=== PATIENT | female | born 1960 | race Two or more races ===

== ENCOUNTER → 2024-05-12 | Outpatient (CLI) | payer OTHER, SELFPAY | END | disposition home or self-care (01) | LOC: SWHD 13:26 | PROVIDERS: PCP Family Medicine; Referring Provider Family Medicine; Visit Provider Student in an Organized Health Care Education/Training Program | DX: L89.892 Pressure ulcer of other site, stage 2 (principal); Z89.512 Acquired absence of left leg below knee; Z89.511 Acquired absence of right leg below knee; E11.622 Type 2 diabetes mellitus with other skin ulcer; N18.6 End stage renal disease; I12.0 Hypertensive chronic kidney disease with stage 5 chronic kidney disease or end stage renal disease; E11.22 Type 2 diabetes mellitus with diabetic chronic kidney disease; Z99.2 Dependence on renal dialysis | CPT/HCPCS: 99213; G0463 ==

== ENCOUNTER → 2024-05-17 | Outpatient (CLI) | payer OTHER, SELFPAY | END | disposition home or self-care (01) | LOC: SWHD 10:45 | PROVIDERS: PCP Family Medicine; Referring Provider Family Medicine; Visit Provider Student in an Organized Health Care Education/Training Program | DX: L97.822 Non-pressure chronic ulcer of other part of left lower leg with fat layer exposed (principal); E11.622 Type 2 diabetes mellitus with other skin ulcer; N18.6 End stage renal disease; I12.0 Hypertensive chronic kidney disease with stage 5 chronic kidney disease or end stage renal disease; E11.22 Type 2 diabetes mellitus with diabetic chronic kidney disease; Z99.2 Dependence on renal dialysis; Z89.511 Acquired absence of right leg below knee; Z89.512 Acquired absence of left leg below knee | CPT/HCPCS: 97597; A9270 ==

== ENCOUNTER → 2024-06-07 | Outpatient (CLI) | payer OTHER, SELFPAY ==
--- NOTE | 2024-06-07 | XR_ITS ---
Examination: Tibia-Fibula, left , 2 views Technique: Tibia-fibula AP lateral 2 views Date and time of exam: June 07, 2024 1150 hours INDICATIONS: Open nonhealing wound at the amputation stump left lower leg 2 months FINDINGS: Severe osteopenia No fracture No cynthia cortical bone destruction IMPRESSION: No cynthia cortical bone destruction Consider MRI lower leg follow-up to best assess for early osteomyelitis, soft tissue abscess
[2024-06-07 13:21] LABS: Glucose Estimated Average 82 mg/dL (80-131); Hemoglobin A1C 4.5 % Hgb (4.8-6.0)
== END | disposition home or self-care (01) ==
PROVIDERS: PCP Family Medicine; Referring Provider Family Medicine; Visit Provider Student in an Organized Health Care Education/Training Program
DX: S81.802A Unspecified open wound, left lower leg, initial encounter (principal); X58.XXXA Exposure to other specified factors, initial encounter
CPT/HCPCS: 36415; 73590; 83036

== ENCOUNTER → 2024-06-09 | Outpatient (CLI) | payer OTHER, SELFPAY | END | disposition home or self-care (01) | LOC: SWHD 10:13 | PROVIDERS: PCP Family Medicine; Referring Provider Family Medicine; Visit Provider Student in an Organized Health Care Education/Training Program | DX: E11.622 Type 2 diabetes mellitus with other skin ulcer (principal); L97.822 Non-pressure chronic ulcer of other part of left lower leg with fat layer exposed; N18.6 End stage renal disease; I12.0 Hypertensive chronic kidney disease with stage 5 chronic kidney disease or end stage renal disease; E11.22 Type 2 diabetes mellitus with diabetic chronic kidney disease; Z99.2 Dependence on renal dialysis; Z89.511 Acquired absence of right leg below knee; Z89.512 Acquired absence of left leg below knee | CPT/HCPCS: 97597; A9270 ==

== ENCOUNTER → 2024-06-30 | Outpatient (CLI) | payer MEDICARE, SELFPAY | END | disposition home or self-care (01) | LOC: SWHD 09:35 | PROVIDERS: PCP Family Medicine; Referring Provider Family Medicine; Visit Provider Surgery | DX: E11.622 Type 2 diabetes mellitus with other skin ulcer (principal); L97.822 Non-pressure chronic ulcer of other part of left lower leg with fat layer exposed; N18.6 End stage renal disease; I12.0 Hypertensive chronic kidney disease with stage 5 chronic kidney disease or end stage renal disease; E11.22 Type 2 diabetes mellitus with diabetic chronic kidney disease; Z99.2 Dependence on renal dialysis; Z89.511 Acquired absence of right leg below knee; Z89.512 Acquired absence of left leg below knee | CPT/HCPCS: 99213; A9270; G0463 ==

== ENCOUNTER → 2024-07-07 | Outpatient (CLI) | payer MEDICARE, SELFPAY | END | disposition home or self-care (01) | LOC: SWHD 08:49 | PROVIDERS: PCP Family Medicine; Referring Provider Family Medicine; Visit Provider Student in an Organized Health Care Education/Training Program | DX: E11.622 Type 2 diabetes mellitus with other skin ulcer (principal); L97.822 Non-pressure chronic ulcer of other part of left lower leg with fat layer exposed; N18.6 End stage renal disease; I12.0 Hypertensive chronic kidney disease with stage 5 chronic kidney disease or end stage renal disease; E11.22 Type 2 diabetes mellitus with diabetic chronic kidney disease; Z99.2 Dependence on renal dialysis; Z89.511 Acquired absence of right leg below knee; Z89.512 Acquired absence of left leg below knee | CPT/HCPCS: 11042; A9270 ==

== ENCOUNTER 2024-07-19 04:12 | Inpatient (IN) | payer MEDICARE, MEDICAID, SELFPAY ==
[2024-07-19] VITALS (8 sets, daily range): BP systolic 142–172; BP diastolic 37–73; PULSE 33–48; RESP 12–90; TEMP 36.1–36.9; O2SAT 95–100; BMI 37.2
--- NOTE | 2024-07-19 | XR_ITS ---
Examination: CT brain head without contrast. 2-D sagittal coronal reconstructions Date and time of exam:July 19, 2024 0424 hours INDICATIONS: Stroke alert, onset focal neurologic deficit, right-sided body weakness beginning 1 ago CTDI: vol (mGy):51.33 DLP: (mGycm):1134 Technique: Multiple CT axial sections of the brain have been obtained, 5 mm slice thickness. Contrast has not been administered. 2-D sagittal, coronal reconstructions have been obtained Low dose protocols were performed. One or more of the following dose reduction techniques were used; automated exposure control, adjustment of the mA and/or KV according to patient size, use of iterative reconstruction technique. Findings: No significant ventricular enlargement. Intra-axial or extra-axial hemorrhage density is not seen. No mass effect or midline shift Basal cisterns are not remarkable. Fourth ventricle is midline. Cranial vault intact. Impression: Negative for acute hemorrhage, mass effect or midline shift
--- NOTE | 2024-07-19 | XR_ITS ---
Examinations: MRI Brain without intravenous contrast. MRA brain without intravenous contrast. MRA carotids without intravenous contrast 3-D vascular reconstructions Date and time of exam: July 19, 2024 1047 hours INDICATIONS: Stroke alert this morning, onset focal neurologic deficit, right facial droop Technique: Multiple axial and sagittal images of the brain have been obtained MRA brain carotid images without contrast obtained, including 3-D postprocessing, vascular maximum intensity projection images Findings: Sellaturcica is not enlarged. The optic chiasm and infundibular stalk are not remarkable. Prepontine and interpeduncular cisterns are not enlarged. No localized enlargement of the medulla or jose. Fourth ventricle and cerebellar tonsils normal in position. Subacute hemorrhage is not seen. Fourth ventricle is midline. Mass in the cerebellopontine angle region is not evident. 7th and 8th nerve complexes exhibits symmetry. Globes are symmetrical with no retro-orbital mass. Increased white matter signal prominent Diffusion-weighted images demonstrate 12 mm focus restricted diffusion left brainstem, pontine level Mass-effect upon the ventricular system is not identified. MRA carotid images degraded by patient motion. MRA brain images moderate diffuse cerebral arterial irregularity Impression: 12 mm acute left brainstem infarcts, pontine level
--- NOTE | 2024-07-19 | XR_ITS ---
Examination: CTA carotids with intravenous contrast CTA brain, head with intravenous contrast. 2-D sagittal, coronal reconstructions. 3-D reconstructions. Exam date and time: July 19, 2024 0430 hours INDICATIONS: Stroke alert, onset right-sided body weakness today, onset focal neurologic deficit CTDI: vol (mGy) 68.79 DLP: (mGycm) 544 Technique: Multiple CTA axial brain, head carotid images post intravenous contrast injection 75 cc, [id number]. 2-D sagittal, coronal reconstructions. 3-D reconstructions, 3-D post processing including vascular maximum intensity projection images. Low dose protocols were performed. One or more of the following dose reduction techniques were used; automated exposure control, adjustment of the mA and/or KV according to patient size, use of iterative reconstruction technique. Findings: Enlargement main pulmonary artery segment Moderate calcification at the carotid bifurcations Atretic right vertebral artery in the neck with multiple areas of poor filling 70% plus stenosis of the petrous portions of both internal carotid arteries 80% plus stenosis juxtasellar portions both internal carotid arteries with very heavy calcification Middle cerebral posterior cerebral branches do fill The intracranial distal right vertebral artery appears occluded IMPRESSION: Very atretic right vertebral artery in the neck with multiple areas of poor filling 70% plus stenosis petrous portions both internal carotid arteries 80% plus stenosis both juxtasellar internal carotid artery segments Intracranial right vertebral artery distally is occluded Posterior cerebral middle cerebral anterior cerebral branches fill with no large vessel occlusions
[2024-07-19] MEDS: Aspirin 325 MG TABLET PO (05:45)
[2024-07-19] MEDS: CLOPIDOGREL BISULFATE 75 MG TABLET 300 MG PO (05:45)
--- NOTE | 2024-07-19 07:38 | EVENTNT_ITS ---
Documentation for date of: 07/19/24 Event Note Event Note: 64-year-old female patient with hypertension, diabetes mellitus, end-stage renal disease on hemodialysis, was seen for body malaise, weakness, dizziness. Patient was noted to have bradycardia in the 30s. She is awake and oriented. We were able to call her relative to give her list of medications: Amlodipine 10 mg daily, furosemide 80 mg daily, gabapentin 100 mg 3 times daily, aspirin 81 mg daily. Blood pressure stable. She is alert she also has slurring of speech and weakness numbness of the right upper extremity. Teleneuro evaluation done. CT brain and CT angio head and neck done. Possible posterior vertebral artery narrowing on preliminary report. Cardiology evaluation requested. Driver/Merchandiser will be contacted. ICU evaluation requested. Patient seen and evaluated with Dr. Schroeder.
[2024-07-19 08:20] LABS: Alanine Aminotransferase 12 U/L (10-49); Albumin, Serum 4.1 gm/dL (3.4-4.8); Albumin/Globulin Ratio 1.4 (1.2-2.2); Alkaline Phosphatase 113 U/L (46-116); Anion Gap 11 (7-16); Aspartate Amino Transferase 19 U/L (0-34); B-Type Natriuretic Peptide 1038 pg/mL (0-100); BUN/Creatinine Ratio 8 Ratio (12-20); Bilirubin,Total 0.2 mg/dL (0.3-1.2); Blood Urea Nitrogen 38 mg/dL (9-23); Calcium 8.6 mg/dL (8.3-10.6); Calcium (Corrected) 8.6 mg/dL (8.5-10.1); Carbon Dioxide 30.5 mMol/L (20.0-31.0); Chloride 95 mMol/L (98-107); Creatinine (Component) 4.6 mg/dL (0.6-1.3); Estimated Creatinine Clearance 9.7 mL/min (>60); Globulin 2.9 gm/dL (2.3-3.5); Glucose 115 mg/dL (74-106); Magnesium 2.1 mg/dL (1.6-2.6); Osmolality,Calculated 281 (275-295); Potassium 4.8 mMol/L (3.4-5.1); Sodium 136 mMol/L (136-145); Thyroid Stimulating Hormone 2.18 uIU/mL (0.55-4.78); Troponin I 0.023 ng/mL (0.0-0.045); eGFR 10 See Note
[2024-07-19 08:22] LABS: Basophils % (Auto) 0 % (0-2.5); Eosinophils # (Auto) 0.3 Thou/mm3 (0.0-0.5); Eosinophils % (Auto) 3 % (0-10); Hematocrit 31.8 % (36.0-46.0); Hemoglobin 9.8 g/dL (12.0-16.0); INR 1.1 (0.9-1.3); Immature Granulocytes % (Auto) 0 % (0-0); Immature Granulocytes Auto 0.03 Thou/mm3 (0.00-0.00); Lymphocytes % (Auto) 10 % (10-50); Mean Corpuscular HGB Conc 30.8 g/dl (31.0-37.0); Mean Corpuscular Hemoglobin 31.8 pg (25.0-35.0); Mean Corpuscular Volume 103 fL (80-100); Monocytes # (Auto) 0.9 Thou/mm3 (0.0-0.8); Monocytes % (Auto) 10 % (0-12); Neutrophils % (Auto) 76 % (37-80); Nucleated Red Blood Cell # 0.03 Thou/mm3 (0.00-0.00); Nucleated Red Blood Cell % 0 /100 WBC (0); Partial Thromboplastin Time 28.4 Seconds (22.0-36.0); Platelet Count 181 Thou/mm3 (140-440); Prothrombin Time 11.8 Seconds (9.0-12.2); RDW Standard Deviation 74.8 fL (36.4-46.3); Red Blood Count 3.08 Miln/mm3 (4.00-5.20); White Blood Count 9.2 Thou/mm3 (3.6-11.0)
[2024-07-19 08:49] LABS: T4 (Thyroxine) 7.4 mcg/dL (4.5-10.9)
--- NOTE | 2024-07-19 10:11 | ECHO_ITS ---
Transthoracic Echo Report Ht (in): 54 Wt (lb): 154 Exam Location: Echo Lab Status: Emergency Business Services Officer: Gia Love Indications: Procedure Performed: BP: 172 / 47 HR: Technical Quality: Very technically difficult study MEASUREMENTS (Male / Female) Normal Values 2D ECHO LV Diastolic Diameter PLAX 4.7 cm 4.2 - 5.9 / 3.9 - 5.3 cm LV Systolic Diameter PLAX 3.4 cm IVS Diastolic Thickness 1.0 cm 0.6 - 1.0 / 0.6 - 0.9 cm LVPW Diastolic Thickness 1.0 cm 0.6 - 1.0 / 0.6 - 0.9 cm LV Relative Wall Thickness 0.4 LA Volume Index 38.2 cm?/m? 16 - 28 cm?/m? M-MODE AV Cusp Separation MM 1.3 cm DOPPLER AV Peak Velocity 224.0 cm/s AV Peak Gradient 20.1 mmHg AV Mean Gradient 11.0 mmHg AV Velocity Time Integral 65.1 cm LVOT Peak Velocity 99.1 cm/s LVOT Peak Gradient 3.9 mmHg LVOT Velocity Time Integral 28.1 cm MV Peak Velocity 298.0 cm/s MV Peak Gradient 35.5 mmHg MV Mean Velocity 171.0 cm/s MV Mean Gradient 15.0 mmHg MV Area PHT 2.3 cm? MR Peak Velocity 464.0 cm/s MR Peak Gradient 86.1 mmHg Mitral E Point Velocity 34.0 cm/s Mitral A Point Velocity 123.0 cm/s Mitral E to A Ratio 0.3 LV E' Lateral Velocity 7.9 cm/s Mitral E to LV E' Lateral Ratio 4.3 LV E' Septal Velocity 3.8 cm/s Mitral E to LV E' Septal Ratio 8.9 TR Peak Velocity 376.0 cm/s TR Peak Gradient 56.6 mmHg FINDINGS Left Ventricle Normal left ventricular size, wall thickness, systolic function with no obvious regional wall motion abnormalities. Normal left ventricular diastolic filling pattern for age. The ejection fraction is visually estimated at 55-60 %. Right Ventricle The right ventricle is normal in size and systolic function. The estimated right ventricular systolic pressure, 72 mmHg. RAP 15. Left Atrium The left atrial cavity size is mildly increased. Right Atrium The right atrial cavity size is mildly increased. Atrial Septum The interatrial septum appears normal with no evidence of a shunt. Aorta The aorta is normal by two-dimensional, color flow and Doppler interrogation. Mitral Valve Normal left ventricular size, wall thickness, systolic function with no obvious regional wall motion abnormalities. Normal left ventricular diastolic filling pattern for age. The ejection fraction is visually estimated at 55-60 %. Aortic Valve Moderate AV sclerosis with mild aortic stenosis with mean PG 11mmHg. Mild AI. Tricuspid Valve The tricuspid valve is normal by two-dimensional, color flow and Doppler interrogation. There is mild tricuspid valve regurgitation. Pulmonic Valve The pulmonic valve is not well visualized. There is no significant pulmonic valve regurgitation. Vessels Dilated inferior vena cava. Pericardium The pericardium is normal by two-dimensional imaging. There is no significant pericardial effusion. CONCLUSIONS Indication: Stroke and complete heart block Negative bubble study with no clear evidence of any PFO Normal LV size and function. Estimated EF 55-60 %. Mild LVH. Diastolic dysfunction present but cannot be graded deu to severe MAC Normal RV size and function. Estimated RVSP, 72 mmHg. RAP 15. Atleast moderate to severe PAH. Severely calcified and thickened mitral leaflets with severe MAC. Severe mitral stenosis with a mean PG of 15 mm hg. Moderate biatrial dilation. Mild aortic stenosis with moderate clacification. mean PG 11 mm hg. Mild to moderate MR. Mild TR. Dilated IVC. Josh Patricio (Electronically Signed) Final Date: 21 July 2024 08:06
--- NOTE | 2024-07-19 10:30 | ESCONSULT_ITS ---
<Statement entered by Zeina Carrillo DO - 07/19/24 15:20> Senior attestation: Patient was examined and case was reviewed with team including attending physician. Note reviewed, I agree with most of its contents and agree with the patient's care. HPI Data of Consult Requesting Physician: Fauzia Thomason DO Admitting Provider: Fauzia Thomason DO Attending Provider: Fauzia Thomason DO Primary Care Provider: Naty Torres MD Consult Narrative Reason for consult: 3rd degree heart block History of present illness: Brigitte Amaya is 64 yr female with PMH of b/L bka, HTN, ESRD (M/W/F with Sergei) who presented to ED after slurred speech and right sided motor deficits. Patient lives at home with family who assists with her care. Family had noticed change in speech last night. Patient also had a choking episode when drinking water. There was a change in baseline motor strength. Typically she is able to move wheelchair herself but had significant difficulty since last night. Not able to occupational health and safety adviser with right hand and no movement in right leg. Sensation in all 4 extremities and face is intact. Further evaluation in ED showed bradycardia with HR in 30s and EKG showing 3rd degree block, narrow QRS complexes. Patient states that she has been aware of her lashawn since past few weeks. Last Thursday, the dialysis nurse recommended to stop home metoprolol (dose?) and follow up with biodiesel plant superintendent. She has never had work up done in the past. Cardiology and ICU were consulted for possible transcutaneous pacing. She denies any SOB, fainting, or dizzniess but endorses fatigue since last week. As patient remains hemodynamically stable, AOx3 ICU teams recommends to transfer to [facility]. Continue to monitor and observe with workup and treatment of stroke. cc:: cc: Fauzia Thomason DO Review of Systems Constitutional Constitutional: Reports system reviewed and no additional complaints, except as documented Exam Vital Signs Temp Pulse Resp BP Pulse Ox O2 Del Method O2 Flow Rate 98.1 F 36 L 17 155/37 H 100 Room Air 2 07/19/24 12:12 07/19/24 12:12 07/19/24 12:12 07/19/24 12:12 07/19/24 12:12 07/19/24 12:12 07/19/24 10:50 Narrative Exam General: Alert and oriented x3. No acute distress, cooperative HEENT: Atraumatic, normocephalic. No JVD noted. Mucosa moist. Pupils are equal and reactive to light bilaterally Cardiovascular: Normal S1 and S2. Bradycardic Respiratory: Lungs are clear to auscultation bilaterally. No wheezing or crackles heard. Abdomen: Soft, nontender, not distended, normal bowel sounds. Skin: Warm to touch, grade I/II sacral wound Musculoskeletal: b/L BKA Neuro: Alert and oriented x3. Sensation intact, no movement in RUE/RLE, right lower side facial dropping, slurred speech but still audible Psych: Normal affect and mood Results Labs 07/19/24 04:55 07/19/24 04:55 Labs: Short CBC 07/19/24 Range/Units 04:55 WBC 9.2 (3.6-11.0) Thou/mm3 Hgb 9.8 L (12.0-16.0) g/dL Hct 31.8 L (36.0-46.0) % Plt Count 181 (140-440) Thou/mm3 BMP 07/19/24 04:55 Sodium 136 Potassium 4.8 Chloride 95 L Carbon Dioxide 30.5 BUN 38 H Creatinine 4.6 H* Glucose 115 H Calcium 8.6 Cardiac Enzymes 07/19/24 Range/Units 04:55 Troponin I 0.023 (0.0-0.045) ng/mL Liver Function 07/19/24 Range/Units 04:55 Total Bilirubin 0.2 L (0.3-1.2) mg/dL AST 19 (0-34) U/L ALT 12 (10-49) U/L Alkaline Phosphatase 113 (46-116) U/L Albumin 4.1 (3.4-4.8) gm/dL Quality Measures Quality Measures VTE prophylaxis Advance care planning discussed with:: patient Medications Home Medications and Allergies Home Medications ?Medication ?Instructions ?Recorded ?Confirmed ?Type aspirin 81 mg chewable tablet 81 mg PO HS ##0 11/30/16 04/14/23 History gabapentin 300 mg capsule 100 mg PO TID #0 caps 04/14/23 History furosemide 40 mg tablet (Lasix) 80 mg PO MWF #0 tabs 0 12/02/16 04/14/23 History Held on 04/16/23. Instructions: Resume on 06/22/23. 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/plumber helper amlodipine 10 mg tablet 10 mg PO DAILY 04/14/2303/23 History cholecalciferol (vitamin D3) 100 1,000 mcg PO DAILY 04/14/23 History mcg (4,000 unit) capsule loratadine 10 mg tablet 10 mg PO DAILY 04/14/2303/23 History metoprolol tartrate 25 mg tablet 25 mg PO BID 04/14/23 04/14/23 History sevelamer carbonate 800 mg tablet 800 mg PO TIDWM 03/2304/14/23 History vitamin B complex 1 tab PO QDAY 04/14/2304/14 History Allergies Allergy/AdvReac Type Severity Reaction Status Date / Time No Known Allergies Allergy Unverified 04/14/23 07:26 Visit Medications Aspirin (Aspirin Ec 81 Mg Tabec) 81 mg PO QDAY KAYLIN Stop: 08/19/24 08:59 Atorvastatin Calcium (Atorvastatin Calcium 10 Mg Tablet) 80 mg PO HS KAYLIN Stop: 08/18/24 20:59 Clopidogrel Bisulfate (Clopidogrel Bisulfate 75 Mg Tablet) 75 mg PO QDAY KAYLIN Stop: 08/19/24 08:59 Heparin Sodium (Porcine) (Heparin Sod Inj 5000 Unit/Ml Vial) 5,000 unit SC Q8HR KAYLIN Stop: 08/02/24 13:59 Hydralazine HCl (Hydralazine Inj 20 Mg/Ml Vial) 10 mg IVP X1 PRN PRN Reason: SBP > 220 Stop: 08/18/24 09:17 Discontinued Medications Aspirin (Aspirin 325 Mg Tablet) 325 mg PO X1 ONE Stop: 07/19/24 05:46 Last Admin: 07/19/24 05:45 Dose: 325 mg Clopidogrel Bisulfate (Clopidogrel Bisulfate 75 Mg Tablet) 300 mg PO X1 ONE Stop: 07/19/24 05:46 Last Admin: 07/19/24 05:45 Dose: 300 mg Assessment & Plan Plan Brigitte Amaya is 64 yr female with PMH of b/L bka, HTN, ESRD (M/W/F with Sergei) who presented to ED after slurred speech and right sided motor deficits. Patient lives at home with family who assists with her care. Family had noticed change in speech last night. Further evaluation in ED showed bradycardia with HR in 30s and EKG showing 3rd degree block, narrow QRS complexes. Cardiology and ICU were consulted for possible transcutaneous pacing. As patient remains hemodynamically stable, AOx3 ICU teams recommends to transfer to tele. Continue to monitor and observe with workup and treatment of stroke. Neuro: #CVA Patient has presented with right side motor deficit, right lower face drooping and slurred speech. LWK yesterday night before bed. Stroke aler called and tele neuro was consulted. -continue workup/mgmt of CVA per neuro and PCP CVS: #3rd degree AV node block Underlying causes: metoprolol use, CVA, dialysis EKG showed lashawn HR 30s with narrow QRS complexes, patient is stable, MAP 100s. -consulted cardiology -defer transcut pacing. Monitor and observe with treatment of stroke Pulm: no active problems Renal: #ESRD on dialysis MWF with Dr. Hodgson, last session was on Thursday -resume dialysis GI: Endo: Heme/Onc: ID: no active problems Skin: -wound care for sacral ulcer The patient's management plan was discussed with my attending physician Dr. Felix and senior Dr. Carrillo. Wanda Arnold, PGY-1 Attending Provider Attestation/Addendum pt seen and examined. Apparently she was in her usual state of health yesterday evening when she went to bed. When she woke up at 3am she found R sided weakness and EMS was called. She does have a h/o ESRD and HTN. States that recently her BP meds have been changed due to issues with her HR at the dialysis center. Denies n/v, fever/chills, chest pain/SOB, or additional sxs then her weakness at this time. she does have slurred speech as well. She arrived to the ER at 4am and was noted to have a HR in the mid 30s to 40s with a SBP ranging from 140s- 180s. At time of exam in the ER she is awake alert oriented and appropriate. Denies dizziness, VOGEL or lightheadedness. On exam she has a R facial droop with R sided weakness, LCTAB, HRRR and b/l BKA. She has pacer pads in place however they are not on and she is not being paced at this time. a/p CVA- HCT and CTA brain neck show some right sided vertebral occlusion and MRI shows small CVA. will need ongoing stroke workup Bradycardia- appears to have a 3rd degree heart block on the monitor, cardiology was consulted in the ER. She is able to maintain her MAP at this point in time without support. She is awake and mentating and therefore appears to have an adequate perfusing pressure. At this point in time , given she is not symptomatic, she does not require dopamine or transcutaneous pacing for her HR. Should her BP drop will reevaluate the need for dopamine and/or pacing. She is on a BB as an outpt. Cardiology has been consulted and will eval need for tranvenous or PPM. At this point in time she appears to be stable. case d/w ICU team d/w ER, cardiology and floor team labs, imaging, records reviewed ~70min required for eval, exam, review, intervention, discussion and formulation of POC for this acutely ill pt
--- NOTE | 2024-07-19 10:40 | PD.RESHP ---
Documentation for date of: 07/19/24 HPI History of Present Illness History of present illness: Ms. Amaya is 64 y/o F with PMH significant for HTN, T2DM, ESRD (HD M,W,F) and bilateral BKA presented to the ED after worsening generalized weakness. Pt stated for the last couple dialysis session she was told at the center her HR is very low and she would need prompt follow up with her PCP. However pt has not been able to make it to the appointment which was scheduled for today. Yesterday (Thursday) after her dialysis session she was at home where she lives with her brother and mother. towards the evening pt has worsening fatigue and was not able to engaged in conversation with her family. per pt her family told her she was slurring her speech and they were not able to understand her. Pt also tried to get up from sitting position and was unable to do so and she started having profound weakness on her right side. denied noticeable facial asymmetry however she states for the past 2 weeks she has been having blurry vision in left eye only. Pt states the last couples she have not made urine. Pt had BKA 8 years ago. denies nausea, vomitting or abdominal pain. Pt denies any diziness, SOB, or chest pain. ED course: intial BP 172/47, HR 35, Hgb 9.8, Hct 31.8, MCV 103, BUN 38, Cr 4.6, eGFR 10, BNP 1038 images: Head/neck CTA :Very atretic right vertebral artery in the neck with multiple areas of poor filling, 70% plus stenosis petrous portions both internal carotid arteries 80% plus stenosis both juxtasellar internal carotid artery segments, Intracranial right vertebral artery distally is occluded, Posterior cerebral middle cerebral anterior cerebral branches fill with no large vessel occlusions -Head CT : Negative for acute hemorrhage, mass effect or midline shift -MRI with MRA brain- 12 mm acute left brainstem infarcts, pontine level Teleneuro was consulted, aspirin 325mg x1 and clopidogrel 300mg x1 given PMH: HTN, T2DM, ESRD (HD M,W, F) PSH: Bilateral BKA Home Meds: amlodipine 10mg Qday, Furosemide 80mg Qday, Gabapentin 100mg TID, Aspirin 81mg) Review of Systems Review of Systems Systems Reviewed: All systems reviewed, normal except as documented Exam Vital Signs Temp Pulse Resp BP Pulse Ox O2 Del Method O2 Flow Rate 97.9 F 39 L 12 160/48 H 97 Nasal Cannula 2 07/19/24 10:17 07/19/24 10:17 07/19/24 10:17 07/19/24 10:17 07/19/24 10:17 07/19/24 10:17 07/19/24 10:17 Narrative Exam GENERAL: A&Ox3 . Awake, Not in acute distress NEURO: no focal neurological deficits HEENT: Atraumatic, Normocephalic. mucous membranes moist. Eyes open, symmetrical, & clear HEART: Normal Heart Sounds LUNGS: Clear to auscultation with no wheezing or crackles. ABDOMEN: soft, non-distended, non-tender, bowel sounds heard, no guarding or rebound tenderness SKIN: No Rash or ecchymoses EXTREMITIES: No edema, tenderness, able to move all 4 extremities, pedal pulses palpated NEURO:? ? MENTAL STATUS:?AOx3 and somnolence ? LANG/SPEECH: Fluent, intact naming, repetition & comprehension ? CRANIAL NERVES: ? II: Pupils equal and reactive, no RAPD,?left hemianopia ? III, IV, : EOM intact, no gaze preference or deviation ? V: normal ? VII: no facial asymmetry ? VIII: slow mumbling hearing to speech ? MOTOR: 0/5 in right upper and lower extremity and 5/5 left upper and lower extremities ? REFLEXES: deminished reflexes in right upper and right lower extremities. intached reflexes in left ? SENSORY: Normal to touch, temperature & pin prick in all extremiteis ? COORD: no tremor, no dysmetria Results: Labs 07/21/24 04:20 07/21/24 04:20 Labs: Short CBC 07/19/24 Range/Units 04:55 WBC 9.2 (3.6-11.0) Thou/mm3 Hgb 9.8 L (12.0-16.0) g/dL Hct 31.8 L (36.0-46.0) % Plt Count 181 (140-440) Thou/mm3 BMP 07/19/24 04:55 Sodium 136 Potassium 4.8 Chloride 95 L Carbon Dioxide 30.5 BUN 38 H Creatinine 4.6 H* Glucose 115 H Calcium 8.6 Cardiac Enzymes 07/19/24 Range/Units 04:55 Troponin I 0.023 (0.0-0.045) ng/mL Liver Function 07/19/24 Range/Units 04:55 Total Bilirubin 0.2 L (0.3-1.2) mg/dL AST 19 (0-34) U/L ALT 12 (10-49) U/L Alkaline Phosphatase 113 (46-116) U/L Albumin 4.1 (3.4-4.8) gm/dL Quality Measures Quality Measures stroke Suspected type of Stroke: Acute Ischemic Tenecteplase given: Reason(s) Tenecteplase not given: Outside the time window not given Rehab services: PT evaluation ordered VTE Prophylaxis: pharmaceutical Antithrombotic by day 2:: ordered Statin ordered: <75 y/o high intensity dose Anticoagulation ordered for A-fib or flutter (current or hx): not indicated Advance care planning discussed with:: patient Medications Home Medications and Allergies Home Medications ?Medication ?Instructions ?Recorded ?Confirmed ?Type aspirin 81 mg chewable tablet 81 mg PO HS ##0 11/30/16 04/14/23 History gabapentin 300 mg capsule 100 mg PO TID #0 caps 11/30/16 04/14/23 History furosemide 40 mg tablet (Lasix) 80 mg PO MWF #0 tabs 12/02/16 04/14/23 History Held on 04/16/23. Instructions: Resume on 06/22/23. 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 manager electronics amlodipine 10 mg tablet 10 mg PO DAILY 04/14/23 04/14/23 History cholecalciferol (vitamin D3) 100 1,000 mcg PO DAILY 04/14/23 04/14/23 History mcg (4,000 unit) capsule loratadine 10 mg tablet 10 mg PO DAILY 04/14/23 04/14/23 History metoprolol tartrate 25 mg tablet 25 mg PO BID 04/14/23 04/14/23 History sevelamer carbonate 800 mg tablet 800 mg PO TIDWM 04/14/23 04/14/23 History vitamin B complex 1 tab PO QDAY 04/14/23 04/14/23 History Allergies Allergy/AdvReac Type Severity Reaction Status Date / Time No Known Allergies Allergy Unverified 04/14/23 07:26 Visit Medications Aspirin (Aspirin Ec 81 Mg Tabec) 81 mg PO QDAY KAYLIN Stop: 08/19/24 08:59 Atorvastatin Calcium (Atorvastatin Calcium 10 Mg Tablet) 80 mg PO HS KAYLIN Stop: 08/18/24 20:59 Clopidogrel Bisulfate (Clopidogrel Bisulfate 75 Mg Tablet) 75 mg PO QDAY KAYLIN Stop: 08/19/24 08:59 Heparin Sodium (Porcine) (Heparin Sod Inj 5000 Unit/Ml Vial) 5,000 unit SC Q8HR KAYLIN Stop: 08/02/24 13:59 Hydralazine HCl (Hydralazine Inj 20 Mg/Ml Vial) 10 mg IVP X1 PRN PRN Reason: SBP > 220 Stop: 08/18/24 09:17 Discontinued Medications Aspirin (Aspirin 325 Mg Tablet) 325 mg PO X1 ONE Stop: 07/19/24 05:46 Last Admin: 07/19/24 05:45 Dose: 325 mg Clopidogrel Bisulfate (Clopidogrel Bisulfate 75 Mg Tablet) 300 mg PO X1 ONE Stop: 07/19/24 05:46 Last Admin: 07/19/24 05:45 Dose: 300 mg Assessment & Plan Plan Ms. Amaya is 64 y/o F with PMH significant for HTN, T2DM, ESRD (HD M,W,F) and bilateral BKA presented to the ED after worsening generalized weakness. Pt is admitted to telemetry for stroke up and cardio recommendations for bradycardia. #Acute CVA #residual right sided weakness -LKW: last night (07/18) 1800 -NIHSS = 9 for R HP, OS eye -Tele neuro consulted, recommendations appreciated -Head/neck CTA :Very atretic right vertebral artery in the neck with multiple areas of poor filling, 70% plus stenosis petrous portions both internal carotid arteries 80% plus stenosis both juxtasellar internal carotid artery segments, Intracranial right vertebral artery distally is occluded, Posterior cerebral middle cerebral anterior cerebral branches fill with no large vessel occlusions -Head CT : Negative for acute hemorrhage, mass effect or midline shift -MRI with MRA brain- 12 mm acute left brainstem infarcts, pontine level Plan: - Neuro checks q4HR - Keep head of bed elevated at 30 degrees - Bolus with Clopidogrel 300 mg bolus x1 and initiate dual antiplatelet therapy with Aspirin 81 mg daily and Clopidogrel 75 mg daily -?limit sedating meds -Euglycemia and Avoid Hyperthermia (PRN Acetaminophen) -?allow permissive HTN for first 24 hours than slowly and gradually goal normotension thereafter -?[id number]-ivcxkldiqj workup (especially with U/A, UCx, UDS, CXR) -?echo with bubble study ordered - lipid panel (cholesterol 86, LDL 25,HDL 36, choles/HDL ration 2.4, HbA1c, TSH(2.18) T4 7.4 -Referral to PT/OT/speech therapy -neuorology consulted, appreciate recommendations #Bradycardia -Pt is aware her HR has been low for couple weeks, she was told at her dialysis session -likely third degree heart block per tele monitor although maintaining MAP >65 -Pt is extremely lethargic, denies syncope or dizziness plan: -cardiology is consulted, appreciate recommendations -will hold home metoprolol to avoid further bradycardia -will consider atropine if pt becomes symptomatic #Primary hypertension -will hold home antihypertensive to allow for permission HTN for 24 hours #insulin dependent type 2 diabetes #s/p BKA -A1c 4.8 on 07/19/24 -A1c is well controlled and BG are in target range. will hold starting sliding scale for now #ESRD -Pt is on hemodialysis on M,W,F -Nephrology consulted for inpatient dialysis Health Maintenance Disposition: telemetry DVT Prophylaxis: Heparin 5000 units SC Q8 hrs GI Prophylaxis: Pantoprozol-40 IV/PO Qday Diet: carbohydrate consistent lo Lines: Peripheral lines Code status: Full Assessment and plan discussed with my senior resident Dr. Aggarwal & attending physician Dr. Katelin Fragoso (PGY-1)- Internal medicine resident Senior resident attestation: Patient evaluated and examined at the bedside, plan of care discussed with rest of the team including my attending physician, except as noted. Jasen PGY2 Attending Provider Attestation/Addendum IFauzia, , attest that I was physically present for the morel portions of the service and evaluated the patient with the resident and I reviewed and discussed the case with the resident and agree with the resident's findings and plans of care as documented above Patient is a 64-year-old female with past medical history of hypertension, type 2 diabetes, end-stage renal disease of bilateral BKA secondary to uncontrolled diabetes who was brought to ED after she was noted by her mother to have slurred speech. Patient states that she has always had bradycardia, but was told by the dialysis center that she should follow-up with her PCP regarding bradycardia. However, yesterday patient states that her symptoms started after she had taken her pills and started choking on them. Shortly after the episode, patient was noted to be slurred and unable to move her right side. Patient was subsequently brought to the ED during which a stroke alert was called. CT head was done showing no acute intracranial findings. CTA of head and neck shows very atretic right vertebral artery in the neck with multiple areas of poor filling, 70%'s plus stenosis of both ICA, 80% plus stenosis of juxta solar ICA segments and occluded intracranial right vertebral artery. In the ED, she was also found to have heart rate in the 30s. Patient was eval by ICU and does not recommend any transcutaneous pacing at this time or need for ICU for dopamine drip as her blood pressure remains high. Patient is able to recall the events that led to her being brought to the hospital. She does have slurred speech and a deviated tongue to the right. She endorses having left eye blurry vision. Patient is flaccid on the right side of her upper and lower extremity. Patient denies any shortness of breath, chest pain, nausea, vomiting, abdominal pain, dysuria, lightheadedness, headache otherwise. Will admit patient to telemetry for further workup and medical management of bradycardia and acute CVA. Will consult nephrology to continue her outpatient dialysis schedule; cardiology regarding bradycardia; and neuro for acute CVA. Pending MRI and echo at this time.
[2024-07-19 10:53] LABS: Glucose Estimated Average 91 mg/dL (80-131); Hemoglobin A1C 4.8 % Hgb (4.8-6.0)
[2024-07-19 10:58] LABS: Cholesterol 86 mg/dL (132-200); Triglycerides 123 mg/dL (30-150)
[2024-07-19 10:59] LABS: Cardiac Risk Estimate 2.4 RATIO (3.7-5.6); HDL Cholesterol 36 mg/dL (40-60); LDL Cholesterol,Calculated 25 mg/dL (0-130)
--- NOTE | 2024-07-19 11:08 | ESCONSULT_ITS ---
<Statement entered by Josh Patricio MD - 07/20/24 06:51> I have personally seen and examined the patient separately on the above date of service and discussed the plan of care with the resident. I reviewed the resident Dr. Higuera consultation progress note and agree with the resident findings and plan in the note above and have also edited the documentation to reflect my findings and plan. A 64-year-old female with history of ESRD on HD for at least 5 years, type 2 diabetes mellitus, essential hypertension, bilateral BKA secondary to possible PAD along with left foot osteomyelitis as well as gangrene, on prosthetics now with some mechanical forms uses wheelchair intermittently, chronic anemia mostly secondary to ESRD came in for further evaluation of dizziness, weakness along with low heart rate. Patient apparently had been having fatigue and weakness over the last 2 to 3 weeks and noticed her heart rate has been slightly low and yesterday she really felt weak and her heart rate was in the 30s to 40s but also noted that the patient had some right-sided weakness which was completely new and there is a new facial droop as per the family and hence came to the emergency department for further evaluation. Denied any Chest pain chest pressure or orthopnea or PND or any significant swelling of her BKA. Denies any Fever or chills. At baseline uses her prosthetics and and wheelchair. Denies any previous cardiac history and unclear if she has been evaluated for any. Cardiology consulted for the low heart rate and EKG in the emergency department showed supraventricular escape rhythm with narrow QRS complex at 36 bpm along with A-V dissociation indicating complete heart block but patient was hemodynamically stable with systolic blood pressure at 150-160 mmHg. Rest of her vitals appear to be stable and patient was alert awake oriented except that she had right facial droop along with right-sided weakness and left-sided ptosis noted on examination. Stat CT brain as well as CTA head and neck was done which showed possible atretic right vertebral artery along with 70-80 % stenosis of the petrous as well as the juxtasellar intra cranial carotid arteries, the anterior, posterior and middle cerebral arteries appear to be normal and was recommended MRI with MRA. Assessment and plan: 1. Complete heart block third-degree AV block with narrow QRS complex with junctional escape rhythm 2. Acute stroke with 12 mm infarct in acute left brainstem and pontine level with right-sided weakness, facial droop and left-sided ptosis 3. Essential hypertension 4. Type 2 diabetes mellitus 5. ESRD on HD 6. Bilateral BKA 7. PAD 8. History of osteomyelitis and gangrene 9. Chronic anemia Patient presented with complete heart block as evidenced by the EKG but patient does have narrow QRS complex with junctional escape rhythm or supraventricular rhythm with adequate blood pressure with systolic around 150 to 160 mmHg. Patient is alert awake oriented x 3 and is not altered and able to have appropriate conversations. Patient at baseline walks minimal with her prosthetics and uses intermittently wheelchair. Also patient is on beta-lillie metoprolol twice daily at home but the actual dose and last administration is not clear at this point of time. Patient also had an acute stroke with right-sided weakness as well as right facial droop and left ptosis. No need of any temporary pacemaker present point of time. Can use pacing pads as well as atropine at bedside if needed but unlikely patient will deteriorate. Recommend to continue to monitor for the next 24 to 48 hours as patient is hemodynamically stable and allow for the beta-lillie washout and bradycardia could be secondary to the acute stroke. Telemetry later in the evening showed patient is actually in 2:1 AV block still with narrow complex rhythm or junctional bradycardia in the 40s intermittently. Given her narrow complex escape rhythm and her low baseline functional status, it is unclear how much of permanent pacemaker will continue to benefit her and recommend to continue to monitor. Echo ordered to rule out any structural wall motion abnormalities and also to evaluate EF LV function RV As well as diastolic function. Check TSH and free T4 to rule out significant hypothyroidism and also check A1c and cholesterol profile for further cardiac restratification Permissible hypertension for now and keep the systolic blood pressure in 150s to 160s in the setting of acute stroke and also to avoid any hemodynamically instability. Discontinue all beta-blockers calcium channel blockers and other antihypertensive medications. There is a high probability of sudden, clinically significant or life threatening deterioration in the patient condition which required the highest level of physician preparedness to intervene urgently. I have personally spent 65 minutes of critical care time, exclusive of time spent on any procedures, in evaluation and management of this critically ill patient. Management of rest of the medical conditions as per primary team and other consultants. Thank you for the consult and allowing me to participate in the care of the patient. Cardiology will continue to follow. Josh Patricio M.D. Interventional Cardiology HPI Data of Consult Patient: new to practice Consult date: 07/19/24 Requesting Physician: ED Admitting Provider: Hospitalist Attending Provider: Hospitalist Primary Care Provider: Naty Torres MD Consult Narrative History of present illness: Note:*Some information is missing due to EMR being down and paper charts were used* Brgiitte is a 64-year-old female past medical history of ESRD (Thursday, sees Dr Mai, on dialysis for the past 1 to 5 years), type 2 diabetes, hypertension who comes for an evaluation of dizziness and weakness with associated low heart rate. Patient reports that she has been noticing that her heart rate has been low for the past 3 weeks and stopped taking metoprolol shortly thereafter. She was having dialysis yesterday and began to feel weak and fatigue with addition of low heart rate. She also endorses some right sided weakness as well. She says she has never had these feelings before and did not take any medicines to help this. She denies having any nausea or vomiting abdominal pain, chest pain, palpitations. she does not have home oxygen. She denies feeling sick or having any sick contacts recently. She says she had a fall about a year ago but not recently. She also says that she has prosthetics, but one of them needs to be replaced and also has a wheelchair. She sees Dr. Sims as her PCP. ED course: She came to the ED with a heart rate of 30s but her blood pressure stable. She was awake and oriented, however was experiencing some slurring of speech and weakness in the right upper extremity. Teleneuro was called and had recommended CT brain and CT angio head and neck which showed possible vertebral artery on narrowing on preliminary report which subsequently MRI was ordered for patient as well. She was given aspirin and loading dose of Plavix. Medicine and ICU and nephrology were consulted and patient was moved to floors Past medical history: As above Surgical history: Carpal tunnel surgery bilaterally, bilateral BKA (4-8 years ago), Meds: Amlodipine 10, Lasix 80, gabapentin 100 mg 3 times daily, ASA Allergies: No known allergies Family history: Dad had CABG when he was in his 70s and a couple years later. Mother has high blood pressure Social history: Born in [place] raised in [place]. 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 Got sick and had to stop working. Was never a heavy drinker when she was younger. Denies smoking and drug history. Has prosthetics in a wheelchair. cc:: cc: Review of Systems Review of Systems Narrative Review of Systems: 12 point ROS is reviewed and is otherwise negative unless directly stated in the HPI Exam Vital Signs Temp Pulse Resp BP Pulse Ox O2 Del Method O2 Flow Rate 98.4 F 48 L 14 142/39 H 95 Nasal Cannula 2 07/19/24 10:50 07/19/24 10:50 07/19/24 10:50 07/19/24 10:50 07/19/24 10:50 07/19/24 10:50 07/19/24 10:50 Narrative Exam General: AAOx3, NAD, HEENT: Moist mucous membranes, conjunctiva clear, EOMI, PERRLA, Cardiovascular: S1, S2, radial pulses +2 bilat, bradycardic Pulmonary: CTAB bilat no cough, no wheezing, on 1L NC GI: No tenderness to light or deep palpitation, no guarding, rigidity, rebound tenderness or distension Extremities: bilat BKA Neuro: AAOx3, Some R sided facial droop, R sided motor weakness in UE and LE Psych: Cooperative Results Labs 07/19/24 04:55 07/19/24 04:55 Labs: Short CBC 07/19/24 Range/Units 04:55 WBC 9.2 (3.6-11.0) Thou/mm3 Hgb 9.8 L (12.0-16.0) g/dL Hct 31.8 L (36.0-46.0) % Plt Count 181 (140-440) Thou/mm3 BMP 07/19/24 04:55 Sodium 136 Potassium 4.8 Chloride 95 L Carbon Dioxide 30.5 BUN 38 H Creatinine 4.6 H* Glucose 115 H Calcium 8.6 Cardiac Enzymes 07/19/24 Range/Units 04:55 Troponin I 0.023 (0.0-0.045) ng/mL Liver Function 07/19/24 Range/Units 04:55 Total Bilirubin 0.2 L (0.3-1.2) mg/dL AST 19 (0-34) U/L ALT 12 (10-49) U/L Alkaline Phosphatase 113 (46-116) U/L Albumin 4.1 (3.4-4.8) gm/dL Quality Measures Quality Measures VTE prophylaxis Advance care planning discussed with:: patient Medications Home Medications and Allergies Home Medications ?Medication ?Instructions ?Recorded ?Confirmed ?Type aspirin 81 mg chewable tablet 81 mg PO HS ##0 11/30/16 04/14/23 History gabapentin 300 mg capsule 100 mg PO TID #0 caps 04/14/23 History furosemide 40 mg tablet (Lasix) 80 mg PO MWF #0 tabs 0 12/02/16 04/14/23 History Held on 04/16/23. Instructions: Resume on 06/22/23. 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/investigator narcotics amlodipine 10 mg tablet 10 mg PO DAILY 04/14/2303/23 History cholecalciferol (vitamin D3) 100 1,000 mcg PO DAILY 04/14/23 History mcg (4,000 unit) capsule loratadine 10 mg tablet 10 mg PO DAILY 04/14/2303/23 History metoprolol tartrate 25 mg tablet 25 mg PO BID 04/14/23 04/14/23 History sevelamer carbonate 800 mg tablet 800 mg PO TIDWM 03/2304/14/23 History vitamin B complex 1 tab PO QDAY 04/14/2304/14 History Allergies Allergy/AdvReac Type Severity Reaction Status Date / Time No Known Allergies Allergy Unverified 04/14/23 07:26 Visit Medications Aspirin (Aspirin Ec 81 Mg Tabec) 81 mg PO QDAY KAYLIN Stop: 08/19/24 08:59 Atorvastatin Calcium (Atorvastatin Calcium 10 Mg Tablet) 80 mg PO HS KAYLIN Stop: 08/18/24 20:59 Clopidogrel Bisulfate (Clopidogrel Bisulfate 75 Mg Tablet) 75 mg PO QDAY KAYLIN Stop: 08/19/24 08:59 Heparin Sodium (Porcine) (Heparin Sod Inj 5000 Unit/Ml Vial) 5,000 unit SC Q8HR KAYLIN Stop: 08/02/24 13:59 Hydralazine HCl (Hydralazine Inj 20 Mg/Ml Vial) 10 mg IVP X1 PRN PRN Reason: SBP > 220 Stop: 08/18/24 09:17 Discontinued Medications Aspirin (Aspirin 325 Mg Tablet) 325 mg PO X1 ONE Stop: 07/19/24 05:46 Last Admin: 07/19/24 05:45 Dose: 325 mg Clopidogrel Bisulfate (Clopidogrel Bisulfate 75 Mg Tablet) 300 mg PO X1 ONE Stop: 07/19/24 05:46 Last Admin: 07/19/24 05:45 Dose: 300 mg Assessment & Plan Plan Assessment Brigitte is a 64-year-old female past medical history of ESRD (Thursday, sees Dr Mai, on dialysis for the past 1 to 5 years), type 2 diabetes, hypertension who comes is currently admitted for acute CVA and third-degree complete heart block. #Third-degree AV block #Narrow QRS complex junctional escape rhythm #Symptomatic bradycardia #History of hypertension Patient has been experiencing bradycardia over the past couple of weeks However patient only became symptomatic recently Patient was on a beta-lillie at some point, however stopped that Patient recently just had a stroke which was 12 mm in the acute left brainstem, pontine level Patient could be bradycardic with stroke affect Will wait for metoprolol to washout of system and see how patient improves with time and management Will consider possible pacemaker for patient later Plan: ?Telemetry ?No beta-blockers at this time ?Allow for permissive hypertension due to CVA for 24 hours ?Keep magnesium and potassium above 2 and 4 effectively to avoid any arrhythmias ?Follow-up TSH, A1c, lipid panel #[id number] type 2 diabetes #Status post bilateral BKA A1c 4.8 Plan: ? Primary team to handle blood sugars #Acute CVA #residual right sided weakness #Bradycardia #ESRD, on HD MWF Management above handled by primary hospitalist team Patient seen and care discussed with my attending physician, Dr. Sheng Malik, PGY-1
--- NOTE | 2024-07-19 11:40 | PD.TNEURO ---
Tele Neuro Consultation Consultation Date 07/19/24 Most Recent Vital Signs Last Vital Signs Temp 98.4 F 07/19/24 10:50 Pulse 48 L 07/19/24 10:50 Resp 14 07/19/24 10:50 BP 142/39 H 07/19/24 10:50 Pulse Ox 95 07/19/24 10:50 O2 Del Method Nasal Cannula 07/19/24 10:50 O2 Flow Rate 2 07/19/24 10:50 Laboratory-Coagulation Panel PT 11.8 Seconds (9.0-12.2) 07/19/24 04:55 INR 1.1 (0.9-1.3) 07/19/24 04:55 APTT 28.4 Seconds (22.0-36.0) 07/19/24 04:55 Consultation Narrative [facility] Tele[facility]urology Consult Services Patient Name:???CARMELA THIBODEAUX Date of :???1960 Date of Service:???07/19/2024 04:41:45 Diagnosis:?I63.011 - Cerebrovascular accident (CVA) due to thrombosis of right vertebral artery (HCCC) Impression: ?64 y/o woman with past hx HTN, previously with DMII and with CKD; 1800 yesterday LKW, now with NIHSS = 9 for R HP, OS eye findings. CT/head negative. CTA with distal R vertebral artery occlusion, hypoplastic at baseline. Given mRS of 4 and posterior location, she is unlikely to be amenable to VERITO/thrombectomy but d/w ED physician, who may call [facility] to discuss. ?Recommend: DAPT with bolus as below. BP 180-200 as possible. MRI/brain. Cardiology cx for bradycardia, symptomatic. ECHO. Tele. Ophthalmology cx on D/C. HbA1c recheck. PEDIATRIC DIETICIAN/PT/OT evals. Neuro f/u. Our recommendations are outlined below. Recommendations: ? Stroke/Telemetry Floor ? Neuro Checks ? Bedside Swallow Eval ? DVT Prophylaxis ? IV Fluids, Normal Saline ? Head of Bed 30 Degrees ? Euglycemia and Avoid Hyperthermia (PRN Acetaminophen) ? Bolus with Clopidogrel 300 mg bolus x1 and initiate dual antiplatelet therapy with Aspirin 81 mg daily and Clopidogrel 75 mg daily Sign Out: ? Discussed with Emergency Department Provider Advanced Imaging:CTA Head and Neck Completed. LVO:Yes Discussed with VERITO :No Metrics: Last Known Well: 07/18/2024 18:00:00 Dispatch Time: 07/19/2024 04:41:45 Arrival Time: 07/19/2024 04:08:00 Initial Response Time: 07/19/2024 04:44:42Symptoms: R facial droop, R sided weakness. Initial patient interaction: 07/19/2024 04:50:11 NIHSS Assessment Completed: 07/19/2024 04:57:59Patient is not a candidate for Thrombolytic. Thrombolytic Medical Decision: 07/19/2024 04:57:59Patient was not deemed candidate for Thrombolytic because of following reasons: LKW outside 4.5 hr window. . As per Radiologist CT Showed no acute hemorrhage. wik Radiologist was not called back for review of advanced imaging. Primary Provider Notified of Diagnostic Impression and Management Plan on: 07/19/2024 05:13:20 History of Present Illness:Patient is a 64 year old Female. Patient was brought by EMS for symptoms of R facial droop, R sided weakness. 64 y/o woman with past hx HTN, previously with DMII and with CKD; she was at at HD yesterday. At 1800 last pm developed R sided weakness. Has been very tired for the past two weeks, uses a WC due to B amputations and has been very weak when getting around. Denies palpitations or LOC. Very fatigued. Also says OS vision is very dark and obscured. New finding, does not usually have a lid droop and denies double vision now. ? Past Medical History: ?Hypertension ?There is no history of Diabetes Mellitus ?There is no history of Atrial Fibrillation ?There is no history of Coronary Artery Disease ?There is no history of Stroke Other PMH:? no longer DMII, A1c 4% ?weight loss--off of medications Medications: No Anticoagulant use? Antiplatelet use:?Yes?ASA Reviewed EMR for current medications Allergies:? Reviewed Social History: Smoking: No Family History: There is no family history of premature cerebrovascular disease pertinent to this consultation ROS : 14 Points Review of Systems was performed and was negative except mentioned in HPI. Past Surgical History: There Is No Surgical History Contributory To Today?s Visit ? Examination: BP(163/49),?Pulse(34),?Blood Glucose(118) 1A: Level of Consciousness - Alert; keenly responsive?+ 0 1B: Ask Month and Age - Both Questions Right?+ 0 1C: Blink Eyes & Squeeze Hands - Performs 1 Task?+ 1 2: Test Horizontal Extraocular Movements - Normal?+ 0 3: Test Visual Jang - No Visual Loss?+ 0 4: Test Facial Palsy (Use Grimace if Obtunded) - Minor paralysis (flat nasolabial fold, smile asymmetry)?+ 1 5A: Test Left Arm Motor Drift - No Drift for 10 Seconds?+ 0 5B: Test Right Arm Motor Drift - No Effort Against [place]?+ 3 6A: Test Left Leg Motor Drift - No Drift for 5 Seconds?+ 0 6B: Test Right Leg Motor Drift - No Effort Against [place]?+ 3 7: Test Limb Ataxia (FNF/Heel-Granados) - No Ataxia?+ 0 8: Test Sensation - Normal; No sensory loss?+ 0 9: Test Language/Aphasia - Normal; No aphasia?+ 0 10: Test Dysarthria - Mild-Moderate Dysarthria: Slurring but can be understood?+ 1 11: Test Extinction/Inattention - No abnormality?+ 0 NIHSS Score:?9 NIHSS Free Text :?B BKAs; unable to move on R ?OS ptosis, possible EOM palsy (LR without full excursion on L) but she denies subjective diplopia. States vision shadowy ? Pre-Morbid Modified [place] Scale:4 Points = Moderately severe disability; unable to walk and attend to bodily needs without assistance Spoke with :?Rex This consult was conducted in real time using interactive audio and video technology. Patient was informed of the technology being used for this visit and agreed to proceed. Patient located in hospital and provider located at home/office setting. Patient is being evaluated for possible acute neurologic impairment and high probability of imminent or life-threatening deterioration. I spent total of 35 minutes providing care to this patient, including time for face to face visit via telemedicine, review of medical records, imaging studies and discussion of findings with providers, the patient and/or family. Dr Sonam Schumacher [facility] For Inpatient follow-up with [facility] physician please call [facility] at . As we are not an outpatient service for any post hospital discharge needs please contact the hospital for assistance. If you have any questions for the [facility] physicians or need to reconsult for clinical or diagnostic changes please contact us via [facility] at . ?
[2024-07-19 14:49] LABS: Lactate (Lactic Acid) 1.9 mMol/L (0.4-2.0)
[2024-07-19] MEDS: HEPARIN SOD INJ 5000 UNIT/ML VIAL SC (21:13)
[2024-07-19] MEDS: ATORVASTATIN CALCIUM 10 MG TABLET 80 MG PO (21:13)
[2024-07-19] MEDS: GABAPENTIN 100 MG CAPSULE PO (22:13)
--- NOTE | 2024-07-19 23:10 | PD.VPROG1 ---
Telemedicine visit statement This visit was conducted with the use of virtual visit was obtained on 07/19/24 at 2310. Documentation for date of: 07/19/24 Subjective Subjective Interval history: Patient is in telemetry. Complains of back pain and was started on gabapentin. Continues to have right sided weakness including facial droop and dysarthria. Virtual exam Vital Signs Temp Pulse Resp BP Pulse Ox O2 Del Method O2 Flow Rate 97.5 F 40 L 17 157/68 H 96 Room Air 2 07/19/24 20:00 07/19/24 20:00 07/19/24 20:00 07/19/24 20:00 07/19/24 20:00 07/19/24 20:00 07/19/24 16:00 Objective Labs 07/19/24 04:55 07/19/24 04:55 Labs: Laboratory Results - last 24 hr 07/19/24 04:55 WBC 9.2 RBC 3.08 L Hgb 9.8 L Hct 31.8 L MCV 103 H MCH 31.8 MCHC 30.8 L RDW Std Deviation 74.8 H Plt Count 181 Neut % (Auto) 76 Lymph % (Auto) 10 [place] % (Auto) 10 Eos % (Auto) 3 Baso % (Auto) 0 Neut # (Auto) 7.0 Lymph # (Auto) 1.0 [place] # (Auto) 0.9 H Eos # (Auto) 0.3 Baso # (Auto) 0.0 Immature Gran # (Auto) 0.03 H Absolute Nucleated RBC 0.03 H Immature Gran % 0 Nucleated RBC % 0 PT 11.8 INR 1.1 APTT 28.4 Sodium 136 Potassium 4.8 Chloride 95 L Carbon Dioxide 30.5 Anion Gap 11 BUN 38 H Creatinine 4.6 H* Estim Creat Clear Calc 9.7 L eGFR 10 L* BUN/Creatinine Ratio 8 L Glucose [address] Glu mg/dL 91 Hemoglobin A1c 4.8 Calculated Osmolality 281 Lactic Acid 1.9 Calcium 8.6 Corrected Calcium 8.6 Magnesium 2.1 Total Bilirubin 0.2 L AST 19 ALT 12 Alkaline Phosphatase 113 Troponin I 0.023 B-Natriuretic Peptide 1038 H* Total Protein 7.0 Albumin 4.1 Globulin 2.9 Albumin/Globulin Ratio 1.4 Triglycerides 123 Cholesterol 86 L LDL Cholesterol, Calc 25 HDL Cholesterol 36 L Cholesterol/HDL Ratio 2.4 L TSH 2.18 Thyroxine (T4) 7.4 Assessment & Plan Problem List (1) Acute ischemic stroke: Status: Acute Assessment and plan: Manifesting as right hemiparesis with facial droop and dysarthria, from pontine infarct confirmed with MRI brain Continue with the Plavix and aspirin with statin (low HDL) Follow-up with rest of the workup (2) ESRD (end stage renal disease) on dialysis: Status: Chronic Assessment and plan: Continue with the maintenance hemodialysis (3) Hypertension: Status: Chronic Assessment and plan: Continue with permissive blood pressure control and hold beta-lillie as she has symptomatic bradycardia
[2024-07-20] VITALS (23 sets, daily range): BP systolic 134–188; BP diastolic 49–97; PULSE 34–51; RESP 13–21; TEMP 36.2–36.8; O2SAT 93–98; BMI 38.9; BMI 12.0
[2024-07-20] MEDS: ACETAMINOPHEN 325 MG TABLET 650 MG PO ×3 (00:36→21:55)
[2024-07-20] MEDS: HEPARIN SOD INJ 5000 UNIT/ML VIAL SC ×3 (05:20→21:45)
[2024-07-20] MEDS: GABAPENTIN 100 MG CAPSULE PO ×3 (05:20→21:45)
[2024-07-20 06:56] LABS: Basophils # (Auto) 0.1 Thou/mm3 (0.0-0.2); Basophils % (Auto) 1 % (0-2.5); Eosinophils # (Auto) 0.4 Thou/mm3 (0.0-0.5); Eosinophils % (Auto) 4 % (0-10); Hematocrit 32.2 % (36.0-46.0); Hemoglobin 9.8 g/dL (12.0-16.0); Immature Granulocytes % (Auto) 0 % (0-0); Immature Granulocytes Auto 0.03 Thou/mm3 (0.00-0.00); Lymphocytes # (Auto) 0.8 Thou/mm3 (1.0-4.8); Lymphocytes % (Auto) 8 % (10-50); Mean Corpuscular HGB Conc 30.4 g/dl (31.0-37.0); Mean Corpuscular Hemoglobin 31.5 pg (25.0-35.0); Mean Corpuscular Volume 104 fL (80-100); Monocytes # (Auto) 0.8 Thou/mm3 (0.0-0.8); Monocytes % (Auto) 9 % (0-12); Neutrophils # (Auto) 7.2 Thou/mm3 (1.8-7.7); Neutrophils % (Auto) 78 % (37-80); Nucleated Red Blood Cell % 0 /100 WBC (0); Platelet Count 190 Thou/mm3 (140-440); RDW Standard Deviation 76.7 fL (36.4-46.3); Red Blood Count 3.11 Miln/mm3 (4.00-5.20); White Blood Count 9.2 Thou/mm3 (3.6-11.0)
[2024-07-20 07:27] LABS: Alanine Aminotransferase 10 U/L (10-49); Albumin, Serum 3.9 gm/dL (3.4-4.8); Albumin/Globulin Ratio 1.3 (1.2-2.2); Alkaline Phosphatase 95 U/L (46-116); Anion Gap 13 (7-16); Aspartate Amino Transferase 10 U/L (0-34); BUN/Creatinine Ratio 8 Ratio (12-20); Bilirubin,Total 0.2 mg/dL (0.3-1.2); Blood Urea Nitrogen 50 mg/dL (9-23); Calcium (Corrected) 9.1 mg/dL (8.5-10.1); Carbon Dioxide 29.3 mMol/L (20.0-31.0); Chloride 94 mMol/L (98-107); Creatinine (Component) 6.1 mg/dL (0.6-1.3); Estimated Creatinine Clearance 7.5 mL/min (>60); Globulin 2.9 gm/dL (2.3-3.5); Glucose 96 mg/dL (74-106); Magnesium 2.3 mg/dL (1.6-2.6); Osmolality,Calculated 285 (275-295); Potassium 4.8 mMol/L (3.4-5.1); Sodium 136 mMol/L (136-145); Total Protein 6.8 gm/dL (5.7-8.2); eGFR 7 See Note
--- NOTE | 2024-07-20 07:41 | ESCONSULT_ITS ---
RE: CARMELA THIBODEAUX : 1960 DATE OF CONSULTATION: 07/19/2024 REASON FOR REFERRAL: ESRD management. REFERRING PHYSICIAN: Hospitalist HISTORY OF PRESENT ILLNESS: This patient is a 64-year-old -[place] woman with past medical history significant for type 2 diabetes, hypertension, bilateral BKA and ESRD on dialysis every Thursday, Thursday, Thursday at the Dialysis Center [facility] since 09/2016, who was admitted to the hospital early this morning with right facial droop and right- sided weakness. As per note, the patient was last known well at around 6:00 p.m on 07/18. She was brought and seen in the emergency room around 4:00 a.m 07/19. She was seen by the neurologist who said that she is not eligible to get thrombolytic therapy as the time has lapsed to obtain maximum benefit from it. The patient is now on dual antiplatelet therapy. She is more awake and alert, but just could not move the right side of her body. She also had a head and neck CTA, which revealed a very atretic right vertebral artery in the neck with multiple areas of poor filling. She is awake, alert and is about to get her swallowing eval today. PAST MEDICAL HISTORY: As previously mentioned, type 2 diabetes, hypertension, ESRD, peripheral vascular disease. PAST SURGICAL HISTORY: Bilateral BKA, AV fistula placement. CURRENT MEDICATIONS: 1. Acetaminophen 2. Aspirin 325 mg x 1. 3. Aspirin 81 mg daily 4. Atorvastatin 80 mg at bedtime 5. Plavix 300 mg x1 p.o. 6. Plavix 75 mg p.o. daily 7. Gabapentin 8. Heparin 5000 units subcutaneously q.8h. ALLERGIES: NO KNOWN DRUG ALLERGIES. PHYSICAL EXAMINATION: General: She is awake, alert and surrounded by her brother and mother. Vital Signs: Blood pressure of 137/80 heart rate of 40, respiratory rate of 17 and temperature 97.5. HEENT: Anicteric sclerae. Normocephalic. Neck: Supple. No JVD. Chest and Lungs: Symmetrical expansion, clear breath sounds. Heart: Without murmur. Abdomen: Soft and tender. Extremities: Bilateral BKA. No edema. LABORATORY DATA: Hemoglobin 9.8, WBC 9200, platelet count 479823. Sodium 136, potassium 4.8, chloride 95, BUN 38, creatinine 4.6 and glucose 115. ASSESSMENT: 1. End-stage renal disease. 2. CVA with a very atretic right vertebral artery in the neck with multiple areas of poor filling 3. Bradycardia 4. Anemia of chronic disease 5. Type 2 diabetes 6. Hypertension PLAN: The patient seems to be doing much better today. The only complaint that she has is not able to move the right side of her body. I will hold off on giving her erythropoietin stimulating agent for now due to recent CVA. The patient will be dialyzed tomorrow, which is her regular dialysis day. We will continue to monitor her closely. Thank you for allowing me to participate in the medical care of this patient. DT: 22:05:41 TT: 22:40:00 Ref: [id number] - TID: [id number] MTDD
--- NOTE | 2024-07-20 09:19 | PC.NURSE ---
Patient transported to dialysis via gurnery per Regla CALDERON. Patient awake, alert and oriented and denies any acute distress.
[2024-07-20 10:00] LABS: INR 1.1 (0.9-1.3); Prothrombin Time 11.9 Seconds (9.0-12.2)
[2024-07-20 10:08] LABS: Thyroid Stimulating Hormone 1.79 uIU/mL (0.55-4.78)
--- NOTE | 2024-07-20 10:27 | PC.SS ---
Addendum entered by Letha Peguero 07/20/24 11:45: Pt is having dialysis today. Original Note: Follow up note: Pending PT and speach evaluation. Possible SNF placement.
--- NOTE | 2024-07-20 10:34 | CHAP ---
Patient was visited by a Spiritual Care volunteer on 07/20/2024 between 0900 and 1017 and received comfort, encouragement and/or prayer.
[2024-07-20 11:44] LABS: Hepatitis A Antibody IgM Non Reactive (Non React); Hepatitis B Core Antibody IgM Non Reactive (Non React); Hepatitis B Surface Ab NonReact(Not Immune) (Immune); Hepatitis B Surface Antigen Non Reactive (Non React); Hepatitis C Antibody Non Reactive (Non React)
--- NOTE | 2024-07-20 11:49 | ESPR_ITS ---
Documentation for date of: 07/20/24 Subjective Subjective Interval history: 07/20: no acute overnight events. pt is seen and examined this morning. Pt is more alert and awake. Although patient states that she feels better there is a right cheek and lips droop. Patient continues to have right-sided weakness without any improvement however sensory function is intact on the right side. Patient's speech is clear, without slowing or slurring. Patient complains of third episode of a cough attack which felt like she was choking on her saliva and caused her panic. During my examination this cough attack occurred, patient states that she has difficulty swallowing clear liquids. Speech evaluation is ordered. Patient is scheduled to undergo dialysis today. Patient has no other complaints. Exam Vital Signs Temp Pulse Resp BP Pulse Ox O2 Del Method O2 Flow Rate 97.1 F 40 L 13 143/59 H 95 Room Air 2 07/20/24 09:44 07/20/24 11:45 07/20/24 09:44 07/20/24 11:45 07/20/24 09:44 07/20/24 08:00 07/20/24 09:44 Narrative Exam GENERAL: A&Ox3 . Awake, Not in acute distress NEURO: no focal neurological deficits HEENT: Atraumatic, Normocephalic. mucous membranes moist. Eyes open, symmetrical, & clear HEART: Normal Heart Sounds LUNGS: Clear to auscultation with no wheezing or crackles. ABDOMEN: soft, non-distended, non-tender, bowel sounds heard, no guarding or rebound tenderness SKIN: No Rash or ecchymoses EXTREMITIES: No edema, tenderness, below knee amputation of lower extremities bilaterally NEURO:? ? MENTAL STATUS:?AOx3 and somnolence ? LANG/SPEECH: Fluent, intact naming, repetition & comprehension ? CRANIAL NERVES: ? II: Pupils equal and reactive, no RAPD,?left hemianopia ? III, IV, : EOM intact, no gaze preference or deviation ? V: normal ? VII: right side facial droop ? VIII: speech is clear ? MOTOR: 0/5 in right upper and lower extremity and 5/5 left upper and lower extremities ? REFLEXES: deminished reflexes in right upper and right lower extremities. intached reflexes in left ? SENSORY: Normal to touch, temperature & pin prick in all extremiteis ? COORD: no tremor, no dysmetria Objective Labs 07/21/24 04:20 07/21/24 04:20 Labs: Laboratory Results - last 24 hr 07/19/24 07/20/24 07/20/24 04:55 06:32 06:52 WBC 9.2 RBC 3.11 L Hgb 9.8 L Hct 32.2 L MCV 104 H MCH 31.5 MCHC 30.4 L RDW Std Deviation 76.7 H Plt Count 190 Neut % (Auto) 78 Lymph % (Auto) 8 L [place] % (Auto) 9 Eos % (Auto) 4 Baso % (Auto) 1 Neut # (Auto) 7.2 Lymph # (Auto) 0.8 L [place] # (Auto) 0.8 Eos # (Auto) 0.4 Baso # (Auto) 0.1 Immature Gran # (Auto) 0.03 H Absolute Nucleated RBC 0.00 Immature Gran % 0 Nucleated RBC % 0 PT 11.9 INR 1.1 Sodium 136 Potassium 4.8 Chloride 94 L Carbon Dioxide 29.3 Anion Gap 13 BUN 50 H Creatinine 6.1 H* D Estim Creat Clear Calc 7.5 L eGFR 7 L* BUN/Creatinine Ratio 8 L Glucose 96 Calculated Osmolality 285 Lactic Acid 1.9 Calcium 9.0 Corrected Calcium 9.1 Phosphorus 7.0 H Magnesium 2.3 Total Bilirubin 0.2 L AST 10 ALT 10 Alkaline Phosphatase 95 Total Protein 6.8 Albumin 3.9 Globulin 2.9 Albumin/Globulin Ratio 1.3 TSH 1.79 Hepatitis A IgM Ab Non Reactive Hep Bs Antigen Non Reactive Hep Bs Antibody NonReact(Not Immune) L Hep B Core IgM Ab Non Reactive Hepatitis C Antibody Non Reactive Quality Measures Quality Measures stroke Suspected type of Stroke: Acute Ischemic Tenecteplase given: Reason(s) Tenecteplase not given: Outside the time window not given Rehab services: PT evaluation ordered VTE Prophylaxis: pharmaceutical Antithrombotic by day 2:: ordered Statin ordered: <75 y/o high intensity dose Anticoagulation ordered for A-fib or flutter (current or hx): not indicated Advance care planning discussed with:: patient Assessment & Plan Assessment Current Active Medications: Generic Name Dose Route Start Last Admin Trade Name Freq PRN Reason Stop Dose Admin Acetaminophen 650 mg 07/19/24 21:27 07/20/24 00:36 Acetaminophen 325 Mg Tablet PO 08/18/24 21:26 650 mg Q6HR PRN Administration Fever >100.4 or Pain 1-10 Aspirin 81 mg 07/20/24 09:00 Aspirin Ec 81 Mg Tabec PO 08/19/24 08:59 QDAY KAYLIN Atorvastatin Calcium 80 mg 07/19/24 21:00 07/19/24 21:13 Atorvastatin Calcium 10 Mg Tablet PO 08/18/24 20:59 80 mg HS KAYLIN Administration Clopidogrel Bisulfate 75 mg 07/20/24 09:00 Clopidogrel Bisulfate 75 Mg Tablet PO 08/19/24 08:59 QDAY KAYLIN Gabapentin 100 mg 07/19/24 22:00 07/20/24 05:20 Gabapentin 100 Mg Capsule PO 08/18/24 21:59 100 mg TID KAYLIN Administration Heparin Sodium (Porcine) 5,000 unit 07/19/24 14:00 07/20/24 05:20 Heparin Sod Inj 5000 Unit/Ml Vial SC 08/02/24 13:59 5,000 unit Q8HR KAYLIN Administration Plan Ms. Amaya is 64 y/o F with PMH significant for HTN, T2DM, ESRD (HD M,W,F) and bilateral BKA presented to the ED after worsening generalized weakness. Pt is admitted to telemetry for stroke up and cardio recommendations for bradycardia. #Acute CVA #Right sided hemiplegia -LKW: last night (07/18) 1800 -NIHSS = 9 for R HP, OS eye -Tele neuro consulted, recommendations appreciated -Head/neck CTA :Very atretic right vertebral artery in the neck with multiple areas of poor filling, 70% plus stenosis petrous portions both internal carotid arteries 80% plus stenosis both juxtasellar internal carotid artery segments, Intracranial right vertebral artery distally is occluded, Posterior cerebral middle cerebral anterior cerebral branches fill with no large vessel occlusions -Head CT : Negative for acute hemorrhage, mass effect or midline shift -MRI with MRA brain- 12 mm acute left brainstem infarcts, pontine level Plan: - Neuro checks q4HR - Keep head of bed elevated at 30 degrees - Bolus with Clopidogrel 300 mg bolus x1 and initiate dual antiplatelet therapy with Aspirin 81 mg daily and Clopidogrel 75 mg daily -?limit sedating meds -Euglycemia and Avoid Hyperthermia (PRN Acetaminophen) -?allow permissive HTN for first 24 hours than slowly and gradually goal normotension thereafter -?[id number]-[id number] workup (especially with U/A, UCx, UDS, CXR) -?echo with bubble study ordered - lipid panel (cholesterol 86, LDL 25,HDL 36, choles/HDL ration 2.4, HbA1c, TSH(2.18) T4 7.4 -Referral to PT/OT/speech therapy -neuorology consulted, appreciate recommendations #Third Degree AV block -Pt is aware her HR has been low for couple weeks, she was told at her dialysis session -likely third degree heart block per tele monitor although maintaining MAP >65 -Pt is extremely lethargic, denies syncope or dizziness plan: -cardiology is consulted, appreciate recommendations -will hold home metoprolol to avoid further bradycardia -will consider atropine if pt becomes symptomatic #Primary hypertension -will hold home antihypertensive to allow for permission HTN for 24 hours #insulin dependent type 2 diabetes #s/p BKA -A1c 4.8 on 07/19/24 -A1c is well controlled and BG are in target range. will hold starting sliding scale for now #ESRD -Pt is on hemodialysis on M,W,F -Nephrology consulted for inpatient dialysis Health Maintenance Disposition: telemetry DVT Prophylaxis: Heparin 5000 units SC Q8 hrs GI Prophylaxis: none Diet: Renal diet with modification of dysphagia to mechanical altered and mildly thick level 2 Lines: Peripheral lines Code status: Full Assessment and plan discussed with my attending physician Dr. Katelin Fragoso (PGY-1)- Internal medicine resident Attending Provider Attestation/Addendum Fauzia Bender DO, attest that I was physically present for the morel portions of the service and evaluated the patient with the resident and I reviewed and discussed the case with the resident and agree with the resident's findings and plans of care as documented above Patient seen and evaluated this AM. No acute events overnight. Patient states that her right side feels heavy and reports some pain. She continues to have hemiplegia and left eye blurriness. Pending echocardiogram and cardiology recommendations. Patient remains bradycardic, but denies any chest pain, lightheadedness, dizziness, nausea, vomiting otherwise.
--- NOTE | 2024-07-20 12:18 | PD.RESPRO ---
Documentation for date of: 07/20/24 Subjective Subjective Interval history: 07/20/2024: Pt examined at bedside today. On telemetry patient remains in and out of heart block, rate in the 40s. She reports no chest pain or palpitations overnight. Still says that she is feeling weak and tired. Says she cannot move her right upper or lower extremity. She is wondering skinning of the pacemaker. Her BUN/creatinine 50 and 6.1 potassium 4.5 magnesium 2.3, phosphorus 7.0, hemoglobin 10.8, white count 9.2. She had dialysis done today and they removed 2.1 L. No other complaints at this time Exam Vital Signs Temp Pulse Resp BP Pulse Ox O2 Del Method O2 Flow Rate 97.1 F 41 L 13 152/60 H 95 Room Air 2 07/20/24 09:44 07/20/24 12:01 07/20/24 09:44 07/20/24 12:01 07/20/24 09:44 07/20/24 08:00 07/20/24 09:44 Narrative Exam General: AAOx3, NAD, HEENT: Moist mucous membranes, conjunctiva clear, EOMI, PERRLA, Cardiovascular: S1, S2, radial pulses +2 bilat, bradycardic Pulmonary: CTAB bilat no cough, no wheezing, on 1L NC GI: No tenderness to light or deep palpitation, no guarding, rigidity, rebound tenderness or distension Extremities: bilat BKA Neuro: AAOx3, Some R sided facial droop, 0/5 motor strength in UE and LE, still able to smile and move tongue Psych: Cooperative Objective Labs 07/20/24 06:32 07/20/24 06:32 Labs: Laboratory Results - last 24 hr 07/19/24 07/20/24 07/20/24 04:55 06:32 06:52 WBC 9.2 RBC 3.11 L Hgb 9.8 L Hct 32.2 L MCV 104 H MCH 31.5 MCHC 30.4 L RDW Std Deviation 76.7 H Plt Count 190 Neut % (Auto) 78 Lymph % (Auto) 8 L Pratt % (Auto) 9 Eos % (Auto) 4 Baso % (Auto) 1 Neut # (Auto) 7.2 Lymph # (Auto) 0.8 L Pratt # (Auto) 0.8 Eos # (Auto) 0.4 Baso # (Auto) 0.1 Immature Gran # (Auto) 0.03 H Absolute Nucleated RBC 0.00 Immature Gran % 0 Nucleated RBC % 0 PT 11.9 INR 1.1 Sodium 136 Potassium 4.8 Chloride 94 L Carbon Dioxide 29.3 Anion Gap 13 BUN 50 H Creatinine 6.1 H* D Estim Creat Clear Calc 7.5 L eGFR 7 L* BUN/Creatinine Ratio 8 L Glucose 96 Calculated Osmolality 285 Lactic Acid 1.9 Calcium 9.0 Corrected Calcium 9.1 Phosphorus 7.0 H Magnesium 2.3 Total Bilirubin 0.2 L AST 10 ALT 10 Alkaline Phosphatase 95 Total Protein 6.8 Albumin 3.9 Globulin 2.9 Albumin/Globulin Ratio 1.3 TSH 1.79 Hepatitis A IgM Ab Non Reactive Hep Bs Antigen Non Reactive Hep Bs Antibody NonReact(Not Immune) L Hep B Core IgM Ab Non Reactive Hepatitis C Antibody Non Reactive Quality Measures Quality Measures stroke Suspected type of Stroke: Acute Ischemic Tenecteplase given: Reason(s) Tenecteplase not given: Outside the time window not given Rehab services: PT evaluation ordered VTE Prophylaxis: pharmaceutical Antithrombotic by day 2:: ordered Statin ordered: >75 y/o moderate or high intensity dose Anticoagulation ordered for A-fib or flutter (current or hx): ordered Advance care planning discussed with:: patient Assessment & Plan Assessment Current Active Medications: Generic Name Dose Route Start Last Admin Trade Name Freq PRN Reason Stop Dose Admin Acetaminophen 650 mg 07/19/24 21:27 07/20/24 00:36 Acetaminophen 325 Mg Tablet PO 08/18/24 21:26 650 mg Q6HR PRN Administration Fever >100.4 or Pain 1-10 Aspirin 81 mg 07/20/24 09:00 Aspirin Ec 81 Mg Tabec PO 08/19/24 08:59 QDAY KAYLIN Atorvastatin Calcium 80 mg 07/19/24 21:00 07/19/24 21:13 Atorvastatin Calcium 10 Mg Tablet PO 08/18/24 20:59 80 mg HS KAYLIN Administration Clopidogrel Bisulfate 75 mg 07/20/24 09:00 Clopidogrel Bisulfate 75 Mg Tablet PO 08/19/24 08:59 QDAY KAYLIN Gabapentin 100 mg 07/19/24 22:00 07/20/24 05:20 Gabapentin 100 Mg Capsule PO 08/18/24 21:59 100 mg TID KAYLIN Administration Heparin Sodium (Porcine) 5,000 unit 07/19/24 14:00 07/20/24 05:20 Heparin Sod Inj 5000 Unit/Ml Vial SC 08/02/24 13:59 5,000 unit Q8HR KAYLIN Administration Plan Assessment Brigitte is a 64-year-old female past medical history of ESRD (Thursday, sees Dr Mai, on dialysis for the past 1 to 5 years), type 2 diabetes, hypertension who comes is currently admitted for acute CVA and third-degree complete heart block. #Third-degree AV block #Narrow QRS complex junctional escape rhythm #Symptomatic bradycardia #History of hypertension #Acute CVA with residual R sided motor deficits Patient has been experiencing bradycardia over the past couple of weeks However patient only became symptomatic recently Patient was on a beta-lillie at some point, however stopped that Patient recently just had a stroke which was 12 mm in the acute left brainstem, pontine level Patient could be bradycardic with stroke affect Patient remains to be 2-1 AV block and junctional bradycardia. Patient just had a CVA, will see how she improves and CVA Considering patient has 0 out of 5 motor strength in right upper and lower extremity, patient is unlikely to be a pacemaker candidate at this time. TSH 2.18, A1c 4.8, LDL 25, total cholesterol 86 Plan: ?Telemetry ?No beta-blockers at this time ?Consider adding losartan for patient for hypertensive coverage ?Keep magnesium and potassium above 2 and 4 effectively to avoid any arrhythmias ?Follow-up TSH, A1c, lipid panel #[id number] type 2 diabetes #Status post bilateral BKA A1c 4.8 Plan: ? Primary team to handle blood sugars #Acute CVA #residual right sided weakness #Bradycardia #ESRD, on HD MWF Management above handled by primary hospitalist team Patient seen and care discussed with my attending physician, Dr. Sheng Malik, PGY-1 Attending Provider Attestation/Addendum I have personally seen and examined the patient separately on the above date of service and discussed the plan of care with the resident. I reviewed the resident Dr. Higuera consultation progress note and agree with the resident findings and plan in the note above and have also edited the documentation to reflect my findings and plan. Josh Patricio M.D. Interventional Cardiology
--- NOTE | 2024-07-20 13:42 | PC.NURSE ---
Patient returned from dialysis- patient awake alert and oriented with no signs of acute distress. 2100mL of fluid removed.
[2024-07-20] MEDS: CLOPIDOGREL BISULFATE 75 MG TABLET PO (14:07)
[2024-07-20] MEDS: ASPIRIN EC 81 MG TABEC PO (14:07)
--- NOTE | 2024-07-20 14:41 | PC.NURSE ---
Dialysis completed for 3 hrs, tolerated well.? Respiration even and unlabored. Saturating at 98% on O2 at 1L/min via nc.? Able to removed 2100 ml of fluid net.? Post tx BP 159/63, HR 42, Temp 98.2.? Pt back in her room.? Call light within reached. Pressure dressing on left upper arm AV fistula c/d/i. Advised RN to remove pressure dressing around 1630. Report given to Alber ROBIN.
[2024-07-20] MEDS: ATORVASTATIN CALCIUM 10 MG TABLET 80 MG PO (21:44)
[2024-07-20] MEDS: hydrALAZINE INJ 20 MG/ML VIAL 10 MG IV (22:21)
--- NOTE | 2024-07-20 23:03 | ESPR_ITS ---
RE: CARMELA THIBODEAUX : 1960 DATE OF SERVICE: 07/20/2024 HISTORY OF PRESENT ILLNESS: Briefly, this patient is a 64-year-old [place] woman with type 2 diabetes, hypertension, bilateral BKA, and ESRD on dialysis every Thursday, Thursday, Thursday at the [facility] since 09/2016, who was admitted to the hospital on 07/19/2024 with right facial droop and right-sided weakness and was found with the right CVA with atretic right vertebral artery in the neck with multiple areas of poor filling. The patient is currently on aspirin and Plavix. She had dialysis today and about 2400 mL of fluid was removed. She said that she did not exactly pass the swallowing evaluation yesterday, but she needs to thicken her liquids. CURRENT MEDICATIONS: 1. Acetaminophen. 2. Aspirin 81 mg daily. 3. Atorvastatin 80 mg at bedtime. 4. Plavix 75 mg p.o. daily. 5. Gabapentin 100 mg b.i.d. 6. Hydralazine 10 mg IV q.6h. p.r.n. PHYSICAL EXAMINATION: General: She is awake, alert, and oriented. Vital Signs: Blood pressure is 179/57, heart rate of 45. HEENT: Anicteric sclerae. Normocephalic. Neck: Supple. No JVD. Chest and Lungs: Symmetrical expansion, clear breath sounds. Heart: Cardiac sounds without murmur. Abdomen: Soft and nontender. Extremities: No edema. Bilateral BKA. LABORATORY DATA: Hemoglobin 9.8, WBC 9,200, platelet count 190,000. Sodium 136, potassium 4.6, chloride 94, CO2 29.3, BUN 50, creatinine 6.1, and glucose 96. ASSESSMENT: 1. End-stage renal disease. 2. CVA with very atretic right vertebral artery in the neck with multiple areas of poor filling. 3. Bradycardia. 4. Anemia of chronic kidney disease. 5. Type 2 diabetes. 6. Hypertension. PLAN: The patient had dialysis today. About 2400 mL of fluid was removed. Next dialysis will be on Thursday. Her blood pressures have been elevated since yesterday. I will start her on losartan 50 mg p.o. daily. We should avoid [id number]. DT: 22:21:39 TT: 22:46:00 Ref: [id number] - TID: [id number] MTDD
--- NOTE | 2024-07-20 23:48 | PD.NEUROPROG ---
Documentation for date of: 07/20/24 Subjective Subjective Interval history: Patient was seen in telemetry today. Continue to have right hemiparesis involving face arm and leg. Also complains of pain in the right arm and right leg. Exam - Neurology Vital Signs Temp Pulse Resp BP Pulse Ox O2 Del Method O2 Flow Rate 97.9 F 45 L 17 179/57 H 97 Room Air 3 07/20/24 20:00 07/20/24 22:21 07/20/24 20:00 07/20/24 22:21 07/20/24 20:00 07/20/24 20:00 07/20/24 16:00 Narrative Exam GENERAL APPEARANCE: Well hydrated, well-nourished in no acute distress. HEENT: Normocephalic, atraumatic, extraocular movements intact. Pupils: Equal reacting to light and accommodation NECK: Supple, no JVD or bruits. CARDIOVASULAR: Heart: S1, S2 heard, regular without S3-S4 or murmur no rubs or gallops. LUNGS/CHEST: Clear to auscultation bilaterally. No rails, rhonchi, or wheezing. Normal inspection. ABDOMEN: Soft, nontender, with normal bowel sounds. No pulsatile masses. No rebound, rigidity, or guarding. Normal inspection and palpation. EXTREMITIES: Normal inspection and palpation. No edema, clubbing or cyanosis. SKIN: Warm and dry without rashes. Normal inspection. MUSCULOSKELETAL: No cervical, thoracic, lumbar or midline bony tenderness. Normal inspection. NEURO: Alert, awake and oriented x3. Cranial nerves: II through XII grossly intact with exception of right facial weakness of upper motor neuron type. Speech and language: Normal with no dysarthria or dysphasia. Motor system: Tone and bulk: Normal: Strength: Right hemiparesis with the pronator drift. deep tendon reflexes: 2+ bilaterally symmetrical. Sensory system: Impaired to all modalities of sensation on the right. Coordination: Intact to [id number] test on the left. No ataxia, no dysmetria, or dysdiadochokinesia noted. No intention tremors noted. Gait: Could not be tested as the patient has bilateral amputation. no signs of meningeal irritation noted. PSYCHIATRIC: Normal mood and affect. Objective Labs 07/20/24 06:32 07/20/24 06:32 Labs: Laboratory Results - last 24 hr 07/20/24 07/20/24 06:32 06:52 WBC 9.2 RBC 3.11 L Hgb 9.8 L Hct 32.2 L MCV 104 H MCH 31.5 MCHC 30.4 L RDW Std Deviation 76.7 H Plt Count 190 Neut % (Auto) 78 Lymph % (Auto) 8 L Towner % (Auto) 9 Eos % (Auto) 4 Baso % (Auto) 1 Neut # (Auto) 7.2 Lymph # (Auto) 0.8 L Towner # (Auto) 0.8 Eos # (Auto) 0.4 Baso # (Auto) 0.1 Immature Gran # (Auto) 0.03 H Absolute Nucleated RBC 0.00 Immature Gran % 0 Nucleated RBC % 0 PT 11.9 INR 1.1 Sodium 136 Potassium 4.8 Chloride 94 L Carbon Dioxide 29.3 Anion Gap 13 BUN 50 H Creatinine 6.1 H* D Estim Creat Clear Calc 7.5 L eGFR 7 L* BUN/Creatinine Ratio 8 L Glucose 96 Calculated Osmolality 285 Calcium 9.0 Corrected Calcium 9.1 Phosphorus 7.0 H Magnesium 2.3 Total Bilirubin 0.2 L AST 10 ALT 10 Alkaline Phosphatase 95 Total Protein 6.8 Albumin 3.9 Globulin 2.9 Albumin/Globulin Ratio 1.3 TSH 1.79 Hepatitis A IgM Ab Non Reactive Hep Bs Antigen Non Reactive Hep Bs Antibody NonReact(Not Immune) L Hep B Core IgM Ab Non Reactive Hepatitis C Antibody Non Reactive Assessment & Plan Additional Assessment & Plan Additional Plan: (1) Acute ischemic stroke: Status: Acute Assessment and plan: Manifesting as right hemiparesis with facial droop and dysarthria, from pontine infarct confirmed with MRI brain Continue with the Plavix and aspirin with statin (low HDL) Follow-up with rest of the workup We will try gabapentin 300 mg twice a day to help with the pain (2) ESRD (end stage renal disease) on dialysis: Status: Chronic Assessment and plan: Continue with the maintenance hemodialysis (3) Hypertension: continue with the blood pressure control but hold the beta-lillie
[2024-07-21] VITALS (7 sets, daily range): BP systolic 133–176; BP diastolic 33–80; PULSE 39–51; RESP 12–21; TEMP 36.1–36.4; O2SAT 95–100; BMI 38.5
[2024-07-21] MEDS: HEPARIN SOD INJ 5000 UNIT/ML VIAL SC ×3 (05:08→21:53)
[2024-07-21 05:50] LABS: Basophils % (Auto) 0 % (0-2.5); Eosinophils # (Auto) 0.3 Thou/mm3 (0.0-0.5); Eosinophils % (Auto) 4 % (0-10); Hematocrit 34.6 % (36.0-46.0); Hemoglobin 10.3 g/dL (12.0-16.0); Immature Granulocytes % (Auto) 0 % (0-0); Immature Granulocytes Auto 0.02 Thou/mm3 (0.00-0.00); Lymphocytes # (Auto) 0.9 Thou/mm3 (1.0-4.8); Lymphocytes % (Auto) 11 % (10-50); Mean Corpuscular HGB Conc 29.8 g/dl (31.0-37.0); Mean Corpuscular Hemoglobin 31.3 pg (25.0-35.0); Mean Corpuscular Volume 105 fL (80-100); Monocytes % (Auto) 12 % (0-12); Neutrophils # (Auto) 5.9 Thou/mm3 (1.8-7.7); Neutrophils % (Auto) 72 % (37-80); Nucleated Red Blood Cell # 0.02 Thou/mm3 (0.00-0.00); Nucleated Red Blood Cell % 0 /100 WBC (0); Platelet Count 200 Thou/mm3 (140-440); RDW Standard Deviation 80.1 fL (36.4-46.3); Red Blood Count 3.29 Miln/mm3 (4.00-5.20); White Blood Count 8.2 Thou/mm3 (3.6-11.0)
[2024-07-21 06:36] LABS: Alanine Aminotransferase 11 U/L (10-49); Albumin/Globulin Ratio 1.3 (1.2-2.2); Alkaline Phosphatase 101 U/L (46-116); Anion Gap 12 (7-16); Aspartate Amino Transferase 17 U/L (0-34); BUN/Creatinine Ratio 7 Ratio (12-20); Bilirubin,Total 0.2 mg/dL (0.3-1.2); Blood Urea Nitrogen 28 mg/dL (9-23); Calcium 9.2 mg/dL (8.3-10.6); Calcium (Corrected) 9.2 mg/dL (8.5-10.1); Chloride 93 mMol/L (98-107); Creatinine (Component) 4.3 mg/dL (0.6-1.3); Estimated Creatinine Clearance 10.6 mL/min (>60); Globulin 3.2 gm/dL (2.3-3.5); Glucose 90 mg/dL (74-106); Magnesium 1.9 mg/dL (1.6-2.6); Osmolality,Calculated 273 (275-295); Phosphorous 4.9 mg/dL (2.4-5.1); Potassium 4.1 mMol/L (3.4-5.1); Sodium 134 mMol/L (136-145); Total Protein 7.2 gm/dL (5.7-8.2); eGFR 11 See Note
[2024-07-21] MEDS: ACETAMINOPHEN 325 MG TABLET 650 MG PO (07:27)
--- NOTE | 2024-07-21 08:21 | ESPR_ITS ---
<Statement entered by Josh Patricio MD - 07/21/24 22:12> I have personally seen and examined the patient separately on the above date of service and discussed the plan of care with the resident. I reviewed the resident Dr. Higuera consultation progress note and agree with the resident findings and plan in the note above and have also edited the documentation to reflect my findings and plan. A 64-year-old female with history of ESRD on HD for at least 5 years, type 2 diabetes mellitus, essential hypertension, bilateral BKA secondary to possible PAD along with left foot osteomyelitis as well as gangrene, on prosthetics now with some mechanical forms uses wheelchair intermittently, chronic anemia mostly secondary to ESRD came in for further evaluation of dizziness, weakness along with low heart rate. Patient apparently had been having fatigue and weakness over the last 2 to 3 weeks and noticed her heart rate has been slightly low and yesterday she really felt weak and her heart rate was in the 30s to 40s but also noted that the patient had some right-sided weakness which was completely new and there is a new facial droop as per the family and hence came to the emergency department for further evaluation. Denied any Chest pain chest pressure or orthopnea or PND or any significant swelling of her BKA. Denies any Fever or chills. At baseline uses her prosthetics and and wheelchair. Denies any previous cardiac history and unclear if she has been evaluated for any. Cardiology consulted for the low heart rate and EKG in the emergency department showed supraventricular escape rhythm with narrow QRS complex at 36 bpm along with A-V dissociation indicating complete heart block but patient was hemodynamically stable with systolic blood pressure at 150-160 mmHg. Rest of her vitals appear to be stable and patient was alert awake oriented except that she had right facial droop along with right-sided weakness and left-sided ptosis noted on examination. Stat CT brain as well as CTA head and neck was done which showed possible atretic right vertebral artery along with 70-80 % stenosis of the petrous as well as the juxtasellar intra cranial carotid arteries, the anterior, posterior and middle cerebral arteries appear to be normal and was recommended MRI with MRA. Assessment and plan: 1. Complete heart block third-degree AV block with narrow QRS complex with junctional escape rhythm 2. Acute stroke with 12 mm infarct in acute left brainstem and pontine level with right-sided weakness, facial droop and left-sided ptosis 3. Essential hypertension 4. Type 2 diabetes mellitus 5. ESRD on HD 6. Bilateral BKA 7. PAD 8. History of osteomyelitis and gangrene 9. Chronic anemia Patient presented with complete heart block as evidenced by the EKG but patient does have narrow QRS complex with junctional escape rhythm or supraventricular rhythm with adequate blood pressure with systolic around 150 to 160 mmHg. Patient is alert awake oriented x 3 and is not altered and able to have appropriate conversations. Patient at baseline walks minimal with her prosthetics and uses intermittently wheelchair. Also patient is on beta-lillie metoprolol twice daily at home but the actual dose and last administration is not clear at this point of time. Patient also had an acute stroke with right-sided weakness as well as right facial droop and left ptosis. No need of any temporary pacemaker present point of time. Can use pacing pads as well as atropine at bedside if needed but unlikely patient will deteriorate. Recommend to continue to monitor for the next 24 to 48 hours as patient is hemodynamically stable and allow for the beta-lillie washout and bradycardia could be secondary to the acute stroke. Telemetry later in the evening showed patient is actually in 2:1 AV block still with narrow complex rhythm or junctional bradycardia in the 40s intermittently. Given her narrow complex escape rhythm and her low baseline functional status, it is unclear how much of permanent pacemaker will continue to benefit her and recommend to continue to monitor. Echo ordered to rule out any structural wall motion abnormalities and also to evaluate EF LV function RV As well as diastolic function. Check TSH and free T4 to rule out significant hypothyroidism and also check A1c and cholesterol profile for further cardiac restratification Permissible hypertension for now and keep the systolic blood pressure in 150s to 160s in the setting of acute stroke and also to avoid any hemodynamically instability. Discontinue all beta-blockers calcium channel blockers and other antihypertensive medications. 07/21/2024 Patient has acute stroke with 12 mm acute infarct in the left brainstem and pontine level. Patient has severe right-sided hemiplegia with 0/5 power in the right upper and lower extremities from the recent stroke. Patient is bedridden from the stroke. Telemetry reviewed and heart rate is in the 40s and still continues to be in intermittent third-degree AV block as well as 2 is to 1 AV block but with narrow complex junctional escape rhythm. Patient is asymptomatic and her blood pressure continues to be stable with systolic between 140 to 160 mmHg. Patient was on beta-blockers at home and it will be 48 hours this evening for the beta-lillie washout. If patient continues to be in 2 is to 1 AV block or complete heart block tomorrow morning then pacemaker can be considered to help her recovery in the rehab otherwise patient continues to be asymptomatic at the present point of time. Recommend to avoid any kind of antihypertensives or any beta-blockers or calcium channel blockers at the present point of time. Dr. Renae will be covering me for the next 3 days and he will follow the patient from tomorrow. Management of rest of the medical conditions as per primary team and other consultants. Thank you for the consult and allowing me to participate in the care of the patient. Josh Patricio M.D. Interventional Cardiology Documentation for date of: 07/21/24 Subjective Subjective Interval history: 07/20/2024: Pt examined at bedside today. On telemetry patient remains in and out of heart block, rate in the 40s. She reports no chest pain or palpitations overnight. Still says that she is feeling weak and tired. Says she cannot move her right upper or lower extremity. She is wondering skinning of the pacemaker. Her BUN/creatinine 50 and 6.1 potassium 4.5 magnesium 2.3, phosphorus 7.0, hemoglobin 10.8, white count 9.2. She had dialysis done today and they removed 2.1 L. No other complaints at this time 07/21/2024: Pt examined at bedside today. Telemetry reviewed and appeared to be max rate 60 once time, but rate in the 40s consistently, but 2:1 AV block. She reports she is doing okay. She is still experiencing R sided weakness and has not been able to move her R side. She is continuing taking her blood thinners. She denies having any chest pain, palpitations but is still feeling weakness. No other complaints at this time. BUN/creatinine 20 and 4.3 respectively, potassium 4.1, magnesium 1.9, repleted 1 g, white count 8.2, hemoglobin 10.3. Still continuing with dual antiplatelet therapy and Lipitor 80 mg. Blood pressure measured to be 135/33, seems to be a trend of wide systolic and diastolic pressures. Exam Vital Signs Temp Pulse Resp BP Pulse Ox O2 Del Method O2 Flow Rate 97.2 F 42 L 12 135/33 H 95 Room Air 3 07/21/24 04:00 07/21/24 04:00 07/21/24 04:00 07/21/24 04:00 07/21/24 04:00 07/21/24 04:00 07/20/24 16:00 Narrative Exam General: AAOx3, NAD, HEENT: Moist mucous membranes, conjunctiva clear, EOMI, PERRLA, Cardiovascular: S1, S2, radial pulses +2 bilat, bradycardic Pulmonary: CTAB bilat no cough, no wheezing, on 1L NC GI: No tenderness to light or deep palpitation, no guarding, rigidity, rebound tenderness or distension Extremities: bilat BKA Neuro: AAOx3, Some R sided facial droop, 0/5 motor strength in UE and LE, still able to smile and move tongue Psych: Cooperative Objective Labs 07/21/24 04:20 07/21/24 04:20 Labs: Laboratory Results - last 24 hr 07/20/24 07/20/24 07/21/24 06:32 06:52 04:20 WBC 8.2 RBC 3.29 L Hgb 10.3 L Hct 34.6 L MCV 105 H MCH 31.3 MCHC 29.8 L RDW Std Deviation 80.1 H Plt Count 200 Neut % (Auto) 72 Lymph % (Auto) 11 Dickinson % (Auto) 12 Eos % (Auto) 4 Baso % (Auto) 0 Neut # (Auto) 5.9 Lymph # (Auto) 0.9 L Dickinson # (Auto) 1.0 H Eos # (Auto) 0.3 Baso # (Auto) 0.0 Immature Gran # (Auto) 0.02 H Absolute Nucleated RBC 0.02 H Immature Gran % 0 Nucleated RBC % 0 PT 11.9 INR 1.1 Sodium 134 L Potassium 4.1 D Chloride 93 L Carbon Dioxide 29.0 Anion Gap 12 BUN 28 H Creatinine 4.3 H* D Estim Creat Clear Calc 10.6 L eGFR 11 L* BUN/Creatinine Ratio 7 L Glucose 90 Calculated Osmolality 273 L Calcium 9.2 Corrected Calcium 9.2 Phosphorus 4.9 Magnesium 1.9 Total Bilirubin 0.2 L AST 17 ALT 11 Alkaline Phosphatase 101 Total Protein 7.2 Albumin 4.0 Globulin 3.2 Albumin/Globulin Ratio 1.3 TSH 1.79 Hepatitis A IgM Ab Non Reactive Hep Bs Antigen Non Reactive Hep Bs Antibody NonReact(Not Immune) L Hep B Core IgM Ab Non Reactive Hepatitis C Antibody Non Reactive Quality Measures Quality Measures stroke Suspected type of Stroke: Acute Ischemic Tenecteplase given: Reason(s) Tenecteplase not given: Outside the time window not given Rehab services: PT evaluation ordered VTE Prophylaxis: pharmaceutical Antithrombotic by day 2:: ordered Statin ordered: >75 y/o moderate or high intensity dose Anticoagulation ordered for A-fib or flutter (current or hx): ordered Advance care planning discussed with:: patient Assessment & Plan Assessment Current Active Medications: Generic Name Dose Route Start Last Admin Trade Name Freq PRN Reason Stop Dose Admin Acetaminophen 650 mg 07/19/24 21:27 07/21/24 07:27 Acetaminophen 325 Mg Tablet PO 08/18/24 21:26 650 mg Q6HR PRN Administration Fever >100.4 or Pain 1-10 Aspirin 81 mg 07/20/24 14:15 07/20/24 14:07 Aspirin Ec 81 Mg Tabec PO 08/19/24 14:14 81 mg QDAY KAYLIN Administration Atorvastatin Calcium 80 mg 07/19/24 21:00 07/20/24 21:44 Atorvastatin Calcium 10 Mg Tablet PO 08/18/24 20:59 80 mg HS KAYLIN Administration Clopidogrel Bisulfate 75 mg 07/20/24 14:15 07/20/24 14:07 Clopidogrel Bisulfate 75 Mg Tablet PO 08/19/24 14:14 75 mg QDAY KAYLIN Administration Gabapentin 300 mg 07/21/24 09:00 Gabapentin 100 Mg Capsule PO 08/20/24 08:59 BID KAYLIN Heparin Sodium (Porcine) 5,000 unit 07/19/24 14:00 07/21/24 05:08 Heparin Sod Inj 5000 Unit/Ml Vial SC 08/02/24 13:59 5,000 unit Q8HR KAYLIN Administration Hydralazine HCl 10 mg 07/20/24 22:13 07/20/24 22:21 Hydralazine Inj 20 Mg/Ml Vial IV 08/19/24 22:12 10 mg Q6HR PRN Administration SBP >170 Magnesium Sulfate/Dextrose 1 gm in 100 mls @ 100 mls/hr 07/21/24 08:05 Magnesium Sulfate Ivpb IV 07/21/24 09:04 X1 ONE Losartan Potassium 50 mg 07/21/24 09:00 Losartan Potassium 25 Mg Tablet PO 08/20/24 08:59 QDAY [facility] Plan Assessment Brigitte is a 64-year-old female past medical history of ESRD (Thursday, sees Dr Mai, on dialysis for the past 1 to 5 years), type 2 diabetes, hypertension who comes is currently admitted for acute CVA and third-degree complete heart block. #Third-degree AV block #Narrow QRS complex junctional escape rhythm #Symptomatic bradycardia #History of hypertension #Acute CVA with residual R sided motor deficits Patient has been experiencing bradycardia over the past couple of weeks However patient only became symptomatic recently Patient was on a beta-lillie at some point, however stopped that Patient recently just had a stroke which was 12 mm in the acute left brainstem, pontine level Patient could be bradycardic with stroke affect Patient remains to be 2-1 AV block and junctional bradycardia. Patient just had a CVA, will see how she improves and CVA Considering patient has 0 out of 5 motor strength in right upper and lower extremity, patient is unlikely to be a pacemaker candidate at this time. TSH 2.18, A1c 4.8, LDL 25, total cholesterol 86 Pt will be seen by Dr. Renae, to determine if pt will get pacemaker Echo results 07/20/2024: Negative bubble study with no clear evidence of any PFO Normal LV size and function. Estimated EF 55-60 %. Mild LVH. Diastolic dysfunction present but cannot be graded deu to severe MAC Normal RV size and function. Estimated RVSP, 72 mmHg. RAP 15. Atleast moderate to severe PAH. Severely calcified and thickened mitral leaflets with severe MAC. Severe mitral stenosis with a mean PG of 15 mm hg. Moderate biatrial dilation. Mild aortic stenosis with moderate clacification. mean PG 11 mm hg. Mild to moderate MR. Mild TR. Dilated IVC. Plan: ?Telemetry ?No beta-blockers at this time ?Hold on giving any anti-hypertensives at this time. ?Keep magnesium and potassium above 2 and 4 effectively to avoid any arrhythmias ?Follow-up TSH, A1c, lipid panel #[id number] type 2 diabetes #Status post bilateral BKA A1c 4.8 Plan: ? Primary team to handle blood sugars #Acute CVA #residual right sided weakness #Bradycardia #ESRD, on HD MWF Management above handled by primary hospitalist team Patient seen and care discussed with my attending physician, Dr. Sheng Malik, PGY-1
[2024-07-21] MEDS: CLOPIDOGREL BISULFATE 75 MG TABLET PO (09:33)
[2024-07-21] MEDS: LOSARTAN POTASSIUM 25 MG TABLET 50 MG PO (09:33)
[2024-07-21] MEDS: ASPIRIN EC 81 MG TABEC PO (09:34)
[2024-07-21] MEDS: Magnesium Sulfate 1 gm Ivpb 1 GM/100 ML BAG IV (09:34)
[2024-07-21] MEDS: GABAPENTIN 100 MG CAPSULE 300 MG PO ×2 (09:43→21:53)
--- NOTE | 2024-07-21 09:55 | PC.SS ---
Addendum entered by Letha Peguero 07/21/24 12:17: SS has communicated with Hailey at [facility] and she is starting insurance authorization. Addendum entered by Letha Peguero 07/21/24 12:11: Pt has been accepted to [facility], [facility], [facility]. SS provided pt with SNF choices. Patient's choice is [facility]. SS spoke to Paty from [facility] who states they do not have female beds available. Pt is aware and her 2nd choice is [facility]. SS has sent PASRR assessment to [facility] using [facility]. SS attempted to contact Hailey at [facility] but was unsuccessful. Original Note: SS has sent inquiry to the local SNF using [employer] [facility].
--- NOTE | 2024-07-21 12:40 | PC.SS ---
Late note 07-20-24: SS met with patient regarding her d/c plan.? Pt is alert/oriented.? Pt was admitted for Heart Block and Stroke.? Pt confirmed demographic and contact information is correct on facesheet.? Pt resides with mom and bother.? Pt transfers herself into wheelchair.? Pt requires assistance with ADLS.? [facility] Pt named her brother, Rosendo Amaya, phone# [phone] medical decision maker if she is unable.? SS provided verbal d/c options for home or SNF.? Patient's choice is to go to SNF for short term rehab.? Pt is established with [facility] with Dr. Mai Thursday at 7:30am.? Pt states she had follow up appointment with PCP today but was hospitalized.? Pt followed up with PCP in May 2024. D/C plan:? SNF Next of Kin:? Rosendo Summers,brother, phone# [phone] PCP:? Dr. Naty Torres Address:? Correct on facesheet
--- NOTE | 2024-07-21 13:47 | ESPR_ITS ---
<Statement entered by Jack Renae MD - 07/24/24 14:21> I personally examined the patient evaluated patient with PGY 2 Dr. Sullivan appears to be stable now she has third-degree heart block asymptomatic blood pressure normal will continue to monitor her may require placement plantation at some point Documentation for date of: 07/21/24 Subjective Subjective Interval history: Overnight, no acute events reported. Patient seen and examined at bedside. Patient states that she still has bilateral lower extremity pain and has been trying to move her right upper extremity. Patient states that she still is coughing and therefore still has to take her pills crushed in her applesauce or pudding. Patient agrees with plan for rehab. Patient's heart rate on monitoring tech continues to show patient in 3rd degree heart block, but asymptomatic with HR between 35 and 50 as patient is bedridden from her severe residual symptoms from her recent stroke. Patient states she has has low HR for weeks, but worsened recently when she was using her wheelchair and using her prosthesis. Exam Vital Signs Temp Pulse Resp BP Pulse Ox O2 Del Method O2 Flow Rate 97.2 F 46 L 18 136/61 H 98 Nasal Cannula 2 07/21/24 12:00 07/21/24 12:00 07/21/24 12:00 07/21/24 12:00 07/21/24 12:00 07/21/24 12:00 07/21/24 12:00 Narrative Exam General Appearance: Pt in mild acute distress laying in bed on NC, seen coughing. HEENT: NC/AT, no scleral icterus, no conjunctival pallor, MMM Lungs: CTAB, no wheezes or crackles appreciated CVS:Bradycardic, S1/S2 heard, no murmurs or rubs appreciated ABD: Soft, non-tender, non-distended, BS + in all 4 quadrants EXT: B/l BKA SKIN: Skin exam normal without any rashes. Neuro: A&O x 3. Right central facial palsy. Motor strength in RUE and RLE +0/5. Other CN grossly normal otherwise. Psych: Appropriate mood and affect Objective Labs 07/21/24 04:20 07/21/24 04:20 Labs: Laboratory Results - last 24 hr 07/21/24 04:20 WBC 8.2 RBC 3.29 L Hgb 10.3 L Hct 34.6 L MCV 105 H MCH 31.3 MCHC 29.8 L RDW Std Deviation 80.1 H Plt Count 200 Neut % (Auto) 72 Lymph % (Auto) 11 Sunflower % (Auto) 12 Eos % (Auto) 4 Baso % (Auto) 0 Neut # (Auto) 5.9 Lymph # (Auto) 0.9 L Sunflower # (Auto) 1.0 H Eos # (Auto) 0.3 Baso # (Auto) 0.0 Immature Gran # (Auto) 0.02 H Absolute Nucleated RBC 0.02 H Immature Gran % 0 Nucleated RBC % 0 Sodium 134 L Potassium 4.1 D Chloride 93 L Carbon Dioxide 29.0 Anion Gap 12 BUN 28 H Creatinine 4.3 H* D Estim Creat Clear Calc 10.6 L eGFR 11 L* BUN/Creatinine Ratio 7 L Glucose 90 Calculated Osmolality 273 L Calcium 9.2 Corrected Calcium 9.2 Phosphorus 4.9 Magnesium 1.9 Total Bilirubin 0.2 L AST 17 ALT 11 Alkaline Phosphatase 101 Total Protein 7.2 Albumin 4.0 Globulin 3.2 Albumin/Globulin Ratio 1.3 Quality Measures Quality Measures stroke Suspected type of Stroke: Acute Ischemic Tenecteplase given: Reason(s) Tenecteplase not given: Outside the time window not given Rehab services: PT evaluation ordered and Speech Language Pathology eval ordered VTE Prophylaxis: pharmaceutical Antithrombotic by day 2:: ordered Statin ordered: >75 y/o moderate or high intensity dose Anticoagulation ordered for A-fib or flutter (current or hx): ordered Advance care planning discussed with:: patient Assessment & Plan Assessment Current Active Medications: Generic Name Dose Route Start Last Admin Trade Name Rodoq PRN Reason Stop Dose Admin Acetaminophen 650 mg 07/19/24 21:27 07/21/24 07:27 Acetaminophen 325 Mg Tablet PO 08/18/24 21:26 650 mg Q6HR PRN Administration Fever >100.4 or Pain 1-10 Aspirin 81 mg 07/20/24 14:15 07/21/24 09:34 Aspirin Ec 81 Mg Tabec PO 08/19/24 14:14 81 mg QDAY KAYLIN Administration Atorvastatin Calcium 80 mg 07/19/24 21:00 07/20/24 21:44 Atorvastatin Calcium 10 Mg Tablet PO 08/18/24 20:59 80 mg HS KAYLIN Administration Balsam [place] Oil 0 gm 07/21/24 11:30 Balsam [place] Oil (Venelex) 60 Gm Tube TOP 08/20/24 11:29 BID KAYLIN Clopidogrel Bisulfate 75 mg 07/20/24 14:15 07/21/24 09:33 Clopidogrel Bisulfate 75 Mg Tablet PO 08/19/24 14:14 75 mg QDAY KAYLIN Administration Gabapentin 300 mg 07/21/24 09:00 07/21/24 09:43 Gabapentin 100 Mg Capsule PO 08/20/24 08:59 300 mg BID KAYLIN Administration Heparin Sodium (Porcine) 5,000 unit 07/19/24 14:00 07/21/24 05:08 Heparin Sod Inj 5000 Unit/Ml Vial SC 08/02/24 13:59 5,000 unit Q8HR KAYLIN Administration Hydralazine HCl 10 mg 07/20/24 22:13 07/20/24 22:21 Hydralazine Inj 20 Mg/Ml Vial IV 08/19/24 22:12 10 mg Q6HR PRN Administration SBP >170 Losartan Potassium 50 mg 07/21/24 09:00 07/21/24 09:33 Losartan Potassium 25 Mg Tablet PO 08/20/24 08:59 50 mg QDAY KAYLIN Administration Plan Ms. Amaya is a 64-year-old female past medical history of ESRD, type 2 diabetes, and hypertension who presented with generalized weakness and admitted for further management of acute CVA and third-degree complete heart block. Cardiology was consulted for further management of heart block. #Third degree heart block #Narrow QRS complex junctional escape rhythm #Symptomatic bradycardia #History of hypertension Patient has been experiencing bradycardia over the past couple of weeks, and was told to follow up per PCP during dialysis session Patient recently just had a stroke which was 12 mm in the acute left brainstem, pontine level Patient remains to be third degree heart block with narrow QRS complex junctional escape rhythm on tele monitor Patient is currently asymptomatic d/t being bedridden from her severe residual hemiparesis from her recent brainstem stroke Pacemaker will most likely be effective prior to discharge to aid her in her recovery in rehab, most likely can have pacemaker over the weekend Continue to monitor progression of her improvement in her stroke symptoms LDL 25, total cholesterol 86 ?Avoid any beta-blockers administration ?Hold on Anti-hypertensives, as BP seems to be HDS ?Keep K+ >4 and Mag > 2+ to avoid further arrhythmias #Acute CVA with residual R sided motor deficits #[id number] type 2 diabetes #Status post bilateral BKA #ESRD, on HD MWF Rest of problems as per primary team Patient's plan and care discussed with my attending, Dr. Oc Sullivan MD PGY-2
[2024-07-21] MEDS: BALSAM PERU/CASTOR OIL (Venelex) 60 GM TUBE TOP ×2 (16:22→21:56)
--- NOTE | 2024-07-21 17:52 | PD.RESPRO ---
Documentation for date of: 07/21/24 Senior resident attestation: #Acute ischemic stroke?right pontine level on MRI occluded distal vertebral artery on CTA neurology following the patient, recommended to continue Plavix and aspirin along with statin. 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 Recommend to discontinue beta-lillie and calcium channel blockers. Patient evaluated and examined at the bedside, plan of care discussed with rest of the team including my attending physician, except as noted. Jasen PGY2 Subjective Subjective Interval history: 07/21: No acute overnight events. Patient seen and examined at bedside this morning. Patient is sitting up in the bed and able partial breakfast. Patient states she continues to not be able to move her right side and blurry vision in the left eye has not improved. Patient denies any shortness of breath however she states she continues to have these choking spells of cough from time to time which makes her very nervous because she is worried that because she is unable to use her right side she will be able to call for help. Patient says she did not sleep very well last night due to anxiety and worry that something would happen to her and she would not be able to call for help as she is unable to move her right side of her body. Patient states she is also right-handed and is worried about how she will now have to get used to using her left arm only. Patient denies any abdominal pain or chest pain. Patient is scheduled to get a pacemaker on Friday 07/21. Exam Vital Signs Temp Pulse Resp BP Pulse Ox O2 Del Method O2 Flow Rate 97.4 F 51 L 19 154/55 H 100 Room Air 2 07/21/24 16:07/21/24 16:07/21/24 16:07/21/24 16:07/21/24 16:07/21/24 16:07/21/24 12:00 Narrative Exam GENERAL: A&Ox3 . Awake, Not in acute distress NEURO: no focal neurological deficits HEENT: Atraumatic, Normocephalic. mucous membranes moist. Eyes open, symmetrical, & clear HEART: Normal Heart Sounds LUNGS: Clear to auscultation with no wheezing or crackles. ABDOMEN: soft, non-distended, non-tender, bowel sounds heard, no guarding or rebound tenderness SKIN: No Rash or ecchymoses EXTREMITIES: No edema, tenderness, below knee amputation of lower extremities bilaterally NEURO:? ? MENTAL STATUS:?AOx3 and somnolence ? LANG/SPEECH: Fluent, intact naming, repetition & comprehension ? CRANIAL NERVES: ? II: Pupils equal and reactive, no RAPD,?left hemianopia ? III, IV, : EOM intact, no gaze preference or deviation ? V: normal ? VII: right side facial droop ? VIII: speech is clear ? MOTOR: 0/5 in right upper and lower extremity and 5/5 left upper and lower extremities ? REFLEXES: deminished reflexes in right upper and right lower extremities. intached reflexes in left ? SENSORY: Normal to touch, temperature & pin prick in all extremiteis ? COORD: no tremor, no dysmetria Objective Labs 07/22/24 06:19 07/22/24 06:19 Labs: Laboratory Results - last 24 hr 07/21/24 04:20 WBC 8.2 RBC 3.29 L Hgb 10.3 L Hct 34.6 L MCV 105 H MCH 31.3 MCHC 29.8 L RDW Std Deviation 80.1 H Plt Count 200 Neut % (Auto) 72 Lymph % (Auto) 11 [place] % (Auto) 12 Eos % (Auto) 4 Baso % (Auto) 0 Neut # (Auto) 5.9 Lymph # (Auto) 0.9 L [place] # (Auto) 1.0 H Eos # (Auto) 0.3 Baso # (Auto) 0.0 Immature Gran # (Auto) 0.02 H Absolute Nucleated RBC 0.02 H Immature Gran % 0 Nucleated RBC % 0 Sodium 134 L Potassium 4.1 D Chloride 93 L Carbon Dioxide 29.0 Anion Gap 12 BUN 28 H Creatinine 4.3 H* D Estim Creat Clear Calc 10.6 L eGFR 11 L* BUN/Creatinine Ratio 7 L Glucose 90 Calculated Osmolality 273 L Calcium 9.2 Corrected Calcium 9.2 Phosphorus 4.9 Magnesium 1.9 Total Bilirubin 0.2 L AST 17 ALT 11 Alkaline Phosphatase 101 Total Protein 7.2 Albumin 4.0 Globulin 3.2 Albumin/Globulin Ratio 1.3 Quality Measures Quality Measures stroke Suspected type of Stroke: Acute Ischemic Tenecteplase given: Reason(s) Tenecteplase not given: Outside the time window not given Rehab services: PT evaluation ordered VTE Prophylaxis: pharmaceutical Antithrombotic by day 2:: ordered Statin ordered: <75 y/o high intensity dose Anticoagulation ordered for A-fib or flutter (current or hx): not indicated Advance care planning discussed with:: patient Assessment & Plan Assessment Current Active Medications: Generic Name Dose Route Start Last Admin Trade Name Freq PRN Reason Stop Dose Admin Acetaminophen 650 mg 07/19/24 21:27 07/21/24 07:27 Acetaminophen 325 Mg Tablet PO 08/18/24 21:26 650 mg Q6HR PRN Administration Fever >100.4 or Pain 1-10 Aspirin 81 mg 07/20/24 14:15 07/21/24 09:34 Aspirin Ec 81 Mg Tabec PO 08/19/24 14:14 81 mg QDAY KAYLIN Administration Atorvastatin Calcium 80 mg 07/19/24 21:00 07/20/24 21:44 Atorvastatin Calcium 10 Mg Tablet PO 08/18/24 20:59 80 mg HS KAYLIN Administration Balsam [place] Oil 0 gm 07/21/24 11:30 07/21/24 16:22 Balsam [place] Oil (Venelex) 60 Gm Tube TOP 08/20/24 11:29 1 applicatio BID KAYLIN Administration Clopidogrel Bisulfate 75 mg 07/20/24 14:15 07/21/24 09:33 Clopidogrel Bisulfate 75 Mg Tablet PO 08/19/24 14:14 75 mg QDAY KAYLIN Administration Gabapentin 300 mg 07/21/24 09:00 07/21/24 09:43 Gabapentin 100 Mg Capsule PO 08/20/24 08:59 300 mg BID KAYLIN Administration Heparin Sodium (Porcine) 5,000 unit 07/19/24 14:00 07/21/24 15:00 Heparin Sod Inj 5000 Unit/Ml Vial SC 08/02/24 13:59 5,000 unit Q8HR KAYLIN Administration Hydralazine HCl 10 mg 07/20/24 22:13 07/20/24 22:21 Hydralazine Inj 20 Mg/Ml Vial IV 08/19/24 22:12 10 mg Q6HR PRN Administration SBP >170 Losartan Potassium 50 mg 07/21/24 09:00 07/21/24 09:33 Losartan Potassium 25 Mg Tablet PO 08/20/24 08:59 50 mg QDAY KAYLIN Administration Plan Ms. Amaya is 64 y/o F with PMH significant for HTN, T2DM, ESRD (HD M,W,F) and bilateral BKA presented to the ED after worsening generalized weakness. Pt is admitted to telemetry for stroke up and cardio recommendations for bradycardia. #Acute CVA #Right sided hemiplegia -LKW: last night (07/18) 1800 -NIHSS = 9 for R HP, OS eye -Tele neuro consulted, recommendations appreciated -Head/neck CTA :Very atretic right vertebral artery in the neck with multiple areas of poor filling, 70% plus stenosis petrous portions both internal carotid arteries 80% plus stenosis both juxtasellar internal carotid artery segments, Intracranial right vertebral artery distally is occluded, Posterior cerebral middle cerebral anterior cerebral branches fill with no large vessel occlusions -Head CT : Negative for acute hemorrhage, mass effect or midline shift -MRI with MRA brain- 12 mm acute left brainstem infarcts, pontine level Plan: - Neuro checks q4HR - Keep head of bed elevated at 30 degrees - Bolus with Clopidogrel 300 mg bolus x1 and initiate dual antiplatelet therapy with Aspirin 81 mg daily and Clopidogrel 75 mg daily -?limit sedating meds -Euglycemia and Avoid Hyperthermia (PRN Acetaminophen) -?allow permissive HTN for first 24 hours than slowly and gradually goal normotension thereafter -?nnlov-tfymjpvxd-paooyhuxyo workup (especially with U/A, UCx, UDS, CXR) -?echo with bubble study ordered - lipid panel (cholesterol 86, LDL 25,HDL 36, choles/HDL ration 2.4, HbA1c, TSH(2.18) T4 7.4 -Referral to PT/OT/speech therapy -neuorology consulted, appreciate recommendations #Third Degree AV block -Pt is aware her HR has been low for couple weeks, she was told at her dialysis session -likely third degree heart block per tele monitor although maintaining MAP >65 -Pt is extremely lethargic, denies syncope or dizziness plan: -cardiology is consulted, appreciate recommendations -will hold home metoprolol to avoid further bradycardia -will consider atropine if pt becomes symptomatic #Primary hypertension -will hold home antihypertensive to allow for permission HTN for 24 hours #insulin dependent type 2 diabetes #s/p BKA -A1c 4.8 on 07/19/24 -A1c is well controlled and BG are in target range. will hold starting sliding scale for now #ESRD -Pt is on hemodialysis on M,W,F -Nephrology consulted for inpatient dialysis Health Maintenance Disposition: telemetry DVT Prophylaxis: Heparin 5000 units SC Q8 hrs GI Prophylaxis: none Diet: Renal diet with modification of dysphagia to mechanical altered and mildly thick level 2 Lines: Peripheral lines Code status: Full Assessment and plan discussed with my attending physician Dr. Katelin Fragoso (PGY-1)- Internal medicine resident Attending Provider Attestation/Addendum IFauzia, , attest that I was physically present for the morel portions of the service and evaluated the patient with the resident and I reviewed and discussed the case with the resident and agree with the resident's findings and plans of care as documented above Patient seen and evaluated this AM. No acute events overnight. Pending cardiology recommendations regarding PPM placement due to third degree heart block. Patient denies any lightheadedness, chest pain, shortness of breath, nause or vomiting. Patient states she had an episode of choking on her saliva overnight, thus patient needs thickened liquids as per ST recs.
[2024-07-21] MEDS: ATORVASTATIN CALCIUM 10 MG TABLET 80 MG PO (22:23)
--- NOTE | 2024-07-21 23:40 | PD.NEUROPROG ---
Documentation for date of: 07/21/24 Subjective Subjective Interval history: Patient was seen in telemetry today. Continue to have right hemiparesis involving face arm and leg. Also complains of pain in the right arm and right leg. Exam - Neurology Vital Signs Temp Pulse Resp BP Pulse Ox O2 Del Method O2 Flow Rate 97 F 51 L 12 156/54 H 98 Nasal Cannula 2 07/21/24 20:00 07/21/24 20:00 07/21/24 20:00 07/21/24 20:00 07/21/24 20:00 07/21/24 20:00 07/21/24 20:00 Narrative Exam GENERAL APPEARANCE: Well hydrated, well-nourished in no acute distress. HEENT: Normocephalic, atraumatic, extraocular movements intact. Pupils: Equal reacting to light and accommodation NECK: Supple, no JVD or bruits. CARDIOVASULAR: Heart: S1, S2 heard, regular without S3-S4 or murmur no rubs or gallops. LUNGS/CHEST: Clear to auscultation bilaterally. No rails, rhonchi, or wheezing. Normal inspection. ABDOMEN: Soft, nontender, with normal bowel sounds. No pulsatile masses. No rebound, rigidity, or guarding. Normal inspection and palpation. EXTREMITIES: Normal inspection and palpation. No edema, clubbing or cyanosis. SKIN: Warm and dry without rashes. Normal inspection. MUSCULOSKELETAL: No cervical, thoracic, lumbar or midline bony tenderness. Normal inspection. NEURO: Alert, awake and oriented x3. Cranial nerves: II through XII grossly intact with exception of right facial weakness of upper motor neuron type. Speech and language: Normal with no dysarthria or dysphasia. Motor system: Tone and bulk: Normal: Strength: Right hemiparesis with the pronator drift. deep tendon reflexes: 2+ bilaterally symmetrical. Sensory system: Impaired to all modalities of sensation on the right. Coordination: Intact to cmgqrb-rtzs-dpqsje test on the left. No ataxia, no dysmetria, or dysdiadochokinesia noted. No intention tremors noted. Gait: Could not be tested as the patient has bilateral amputation. no signs of meningeal irritation noted. PSYCHIATRIC: Normal mood and affect. Objective Labs 07/21/24 04:20 07/21/24 04:20 Labs: Laboratory Results - last 24 hr 07/21/24 04:20 WBC 8.2 RBC 3.29 L Hgb 10.3 L Hct 34.6 L MCV 105 H MCH 31.3 MCHC 29.8 L RDW Std Deviation 80.1 H Plt Count 200 Neut % (Auto) 72 Lymph % (Auto) 11 [place] % (Auto) 12 Eos % (Auto) 4 Baso % (Auto) 0 Neut # (Auto) 5.9 Lymph # (Auto) 0.9 L [place] # (Auto) 1.0 H Eos # (Auto) 0.3 Baso # (Auto) 0.0 Immature Gran # (Auto) 0.02 H Absolute Nucleated RBC 0.02 H Immature Gran % 0 Nucleated RBC % 0 Sodium 134 L Potassium 4.1 D Chloride 93 L Carbon Dioxide 29.0 Anion Gap 12 BUN 28 H Creatinine 4.3 H* D Estim Creat Clear Calc 10.6 L eGFR 11 L* BUN/Creatinine Ratio 7 L Glucose 90 Calculated Osmolality 273 L Calcium 9.2 Corrected Calcium 9.2 Phosphorus 4.9 Magnesium 1.9 Total Bilirubin 0.2 L AST 17 ALT 11 Alkaline Phosphatase 101 Total Protein 7.2 Albumin 4.0 Globulin 3.2 Albumin/Globulin Ratio 1.3 Assessment & Plan Additional Assessment & Plan Additional Plan: (1) Acute ischemic stroke: Status: Acute Assessment and plan: Manifesting as right hemiparesis with facial droop and dysarthria, from pontine infarct confirmed with MRI brain Continue with the Plavix and aspirin with statin (low HDL) Continue gabapentin 300 mg twice a day to help with the pain (2) ESRD (end stage renal disease) on dialysis: Status: Chronic Assessment and plan: Continue with the maintenance hemodialysis (3) Hypertension: continue with the blood pressure control but hold the beta-lillie
[2024-07-22] VITALS (24 sets, daily range): BP systolic 103–178; BP diastolic 45–74; PULSE 34–54; RESP 14–20; TEMP 35.7–36.7; O2SAT 95–99; BMI 38.2; BMI 38.3; BMI 12.0
[2024-07-22] MEDS: HEPARIN SOD INJ 5000 UNIT/ML VIAL SC ×3 (05:32→21:36)
[2024-07-22 06:54] LABS: Basophils % (Auto) 1 % (0-2.5); Eosinophils # (Auto) 0.4 Thou/mm3 (0.0-0.5); Eosinophils % (Auto) 5 % (0-10); Hematocrit 33.9 % (36.0-46.0); Hemoglobin 10.3 g/dL (12.0-16.0); Immature Granulocytes % (Auto) 0 % (0-0); Immature Granulocytes Auto 0.02 Thou/mm3 (0.00-0.00); Lymphocytes # (Auto) 1.1 Thou/mm3 (1.0-4.8); Lymphocytes % (Auto) 13 % (10-50); Mean Corpuscular HGB Conc 30.4 g/dl (31.0-37.0); Mean Corpuscular Hemoglobin 30.7 pg (25.0-35.0); Mean Corpuscular Volume 101 fL (80-100); Monocytes # (Auto) 0.9 Thou/mm3 (0.0-0.8); Monocytes % (Auto) 10 % (0-12); Neutrophils # (Auto) 6.2 Thou/mm3 (1.8-7.7); Neutrophils % (Auto) 72 % (37-80); Nucleated Red Blood Cell # 0.02 Thou/mm3 (0.00-0.00); Nucleated Red Blood Cell % 0 /100 WBC (0); Platelet Count 206 Thou/mm3 (140-440); RDW Standard Deviation 76.5 fL (36.4-46.3); Red Blood Count 3.35 Miln/mm3 (4.00-5.20); White Blood Count 8.6 Thou/mm3 (3.6-11.0)
[2024-07-22 07:30] LABS: Alanine Aminotransferase 10 U/L (10-49); Albumin, Serum 3.7 gm/dL (3.4-4.8); Albumin/Globulin Ratio 1.2 (1.2-2.2); Alkaline Phosphatase 93 U/L (46-116); Anion Gap 13 (7-16); Aspartate Amino Transferase 10 U/L (0-34); BUN/Creatinine Ratio 8 Ratio (12-20); Bilirubin,Total 0.2 mg/dL (0.3-1.2); Blood Urea Nitrogen 46 mg/dL (9-23); Calcium 8.9 mg/dL (8.3-10.6); Calcium (Corrected) 9.1 mg/dL (8.5-10.1); Carbon Dioxide 26.6 mMol/L (20.0-31.0); Chloride 92 mMol/L (98-107); Creatinine (Component) 5.9 mg/dL (0.6-1.3); Estimated Creatinine Clearance 7.7 mL/min (>60); Globulin 3.2 gm/dL (2.3-3.5); Glucose 93 mg/dL (74-106); Magnesium 2.2 mg/dL (1.6-2.6); Osmolality,Calculated 276 (275-295); Phosphorous 6.7 mg/dL (2.4-5.1); Potassium 4.5 mMol/L (3.4-5.1); Sodium 132 mMol/L (136-145); Total Protein 6.9 gm/dL (5.7-8.2); eGFR 7 See Note
--- NOTE | 2024-07-22 09:51 | PC.LAC ---
BP Drop--50 ml NS, reduce Goal to 1.5L, recheck BP
--- NOTE | 2024-07-22 10:54 | PD.RESPRO ---
Documentation for date of: 07/22/24 Subjective Subjective Interval history: 07/22: no acute overnight events. Pt is seen and examined at bedside. Pt was very happy today she stated her right leg moved. she still complete paralysis of the right arm but was able to move his right leg slightly. Pt denies SOB, diziness, or chest pain. Pt also states she likes the protein shake and has had multiple bowel movements. Pt will likely get pacemaker tomorrow. Pt has no other complaints. Exam Vital Signs Temp Pulse Resp BP Pulse Ox O2 Del Method O2 Flow Rate 98.0 F 39 L 18 133/51 H 96 Room Air 2 07/22/24 08:34 07/22/24 10:45 07/22/24 08:34 07/22/24 10:45 07/22/24 08:34 07/22/24 08:00 07/22/24 08:34 Narrative Exam GENERAL: A&Ox3 . Awake, Not in acute distress NEURO: no focal neurological deficits HEENT: Atraumatic, Normocephalic. mucous membranes moist. Eyes open, symmetrical, & clear HEART: Normal Heart Sounds LUNGS: Clear to auscultation with no wheezing or crackles. ABDOMEN: soft, non-distended, non-tender, bowel sounds heard, no guarding or rebound tenderness SKIN: No Rash or ecchymoses EXTREMITIES: No edema, tenderness, below knee amputation of lower extremities bilaterally NEURO:? ? MENTAL STATUS:?AOx3 and somnolence ? LANG/SPEECH: Fluent, intact naming, repetition & comprehension ? CRANIAL NERVES: ? II: Pupils equal and reactive, no RAPD,?left hemianopia ? III, IV, : EOM intact, no gaze preference or deviation ? V: normal ? VII: right side facial droop ? VIII: speech is clear ? MOTOR: 0/5 in right upper extremity and 1/5 motor right lower extremity and 5/5 left upper and lower extremities ? REFLEXES: deminished reflexes in right upper and right lower extremities. intached reflexes in left ? SENSORY: Normal to touch, temperature & pin prick in all extremiteis ? COORD: no tremor, no dysmetria Objective Labs 07/22/24 06:19 07/22/24 06:19 Labs: Laboratory Results - last 24 hr 07/22/24 06:19 WBC 8.6 RBC 3.35 L Hgb 10.3 L Hct 33.9 L MCV 101 H MCH 30.7 MCHC 30.4 L RDW Std Deviation 76.5 H Plt Count 206 Neut % (Auto) 72 Lymph % (Auto) 13 [place] % (Auto) 10 Eos % (Auto) 5 Baso % (Auto) 1 Neut # (Auto) 6.2 Lymph # (Auto) 1.1 [place] # (Auto) 0.9 H Eos # (Auto) 0.4 Baso # (Auto) 0.0 Immature Gran # (Auto) 0.02 H Absolute Nucleated RBC 0.02 H Immature Gran % 0 Nucleated RBC % 0 Sodium 132 L Potassium 4.5 Chloride 92 L Carbon Dioxide 26.6 Anion Gap 13 BUN 46 H Creatinine 5.9 H* D Estim Creat Clear Calc 7.7 L eGFR 7 L* BUN/Creatinine Ratio 8 L Glucose 93 Calculated Osmolality 276 Calcium 8.9 Corrected Calcium 9.1 Phosphorus 6.7 H Magnesium 2.2 Total Bilirubin 0.2 L AST 10 ALT 10 Alkaline Phosphatase 93 Total Protein 6.9 Albumin 3.7 Globulin 3.2 Albumin/Globulin Ratio 1.2 Quality Measures Quality Measures stroke Suspected type of Stroke: Acute Ischemic Tenecteplase given: Reason(s) Tenecteplase not given: Outside the time window not given Rehab services: PT evaluation ordered VTE Prophylaxis: pharmaceutical Antithrombotic by day 2:: ordered Statin ordered: <75 y/o high intensity dose Anticoagulation ordered for A-fib or flutter (current or hx): not indicated Advance care planning discussed with:: patient Assessment & Plan Assessment Current Active Medications: Generic Name Dose Route Start Last Admin Trade Name Freq PRN Reason Stop Dose Admin Acetaminophen 650 mg 07/19/24 21:27 07/21/24 07:27 Acetaminophen 325 Mg Tablet PO 08/18/24 21:26 650 mg Q6HR PRN Administration Fever >100.4 or Pain 1-10 Aspirin 81 mg 07/20/24 14:15 07/21/24 09:34 Aspirin Ec 81 Mg Tabec PO 08/19/24 14:14 81 mg QDAY KAYLIN Administration Atorvastatin Calcium 80 mg 07/19/24 21:00 07/21/24 22:23 Atorvastatin Calcium 10 Mg Tablet PO 08/18/24 20:59 80 mg HS KAYLIN Administration Balsam [place] Oil 0 gm 07/21/24 11:30 07/21/24 21:56 Balsam [place] Oil (Venelex) 60 Gm Tube TOP 08/20/24 11:29 1 applicatio BID KAYLIN Administration Clopidogrel Bisulfate 75 mg 07/20/24 14:15 07/21/24 09:33 Clopidogrel Bisulfate 75 Mg Tablet PO 08/19/24 14:14 75 mg QDAY KAYLIN Administration Gabapentin 300 mg 07/21/24 09:00 07/21/24 21:53 Gabapentin 100 Mg Capsule PO 08/20/24 08:59 300 mg BID KAYLIN Administration Heparin Sodium (Porcine) 5,000 unit 07/19/24 14:00 07/22/24 05:32 Heparin Sod Inj 5000 Unit/Ml Vial SC 08/02/24 13:59 5,000 unit Q8HR KAYLIN Administration Hydralazine HCl 10 mg 07/20/24 22:13 07/20/24 22:21 Hydralazine Inj 20 Mg/Ml Vial IV 08/19/24 22:12 10 mg Q6HR PRN Administration SBP >170 Losartan Potassium 50 mg 07/21/24 09:00 07/21/24 09:33 Losartan Potassium 25 Mg Tablet PO 08/20/24 08:59 50 mg QDAY KAYLIN Administration Plan Ms. Amaya is 64 y/o F with PMH significant for HTN, T2DM, ESRD (HD M,W,F) and bilateral BKA presented to the ED after worsening generalized weakness. Pt is admitted to telemetry for stroke up and cardio recommendations for bradycardia. #Acute CVA #Right sided hemiplegia -LKW: last night (07/18) 1800 -NIHSS = 9 for R HP, OS eye -Tele neuro consulted, recommendations appreciated -Head/neck CTA :Very atretic right vertebral artery in the neck with multiple areas of poor filling, 70% plus stenosis petrous portions both internal carotid arteries 80% plus stenosis both juxtasellar internal carotid artery segments, Intracranial right vertebral artery distally is occluded, Posterior cerebral middle cerebral anterior cerebral branches fill with no large vessel occlusions -Head CT : Negative for acute hemorrhage, mass effect or midline shift -MRI with MRA brain- 12 mm acute left brainstem infarcts, pontine level Plan: - Neuro checks q4HR - Keep head of bed elevated at 30 degrees - Bolus with Clopidogrel 300 mg bolus x1 and initiate dual antiplatelet therapy with Aspirin 81 mg daily and Clopidogrel 75 mg daily -?limit sedating meds -Euglycemia and Avoid Hyperthermia (PRN Acetaminophen) -?allow permissive HTN for first 24 hours than slowly and gradually goal normotension thereafter -?fgccf-lcbaanter-vrtgnnhvkv workup (especially with U/A, UCx, UDS, CXR) -?echo with bubble study ordered - lipid panel (cholesterol 86, LDL 25,HDL 36, choles/HDL ration 2.4, HbA1c, TSH(2.18) T4 7.4 -Referral to PT/OT/speech therapy -neuorology consulted, closely following #Third Degree AV block -Pt is aware her HR has been low for couple weeks, she was told at her dialysis session -likely third degree heart block per tele monitor although maintaining MAP >65 -Pt is extremely lethargic, denies syncope or dizziness plan: -cardiology is consulted, appreciate recommendations -will hold home metoprolol to avoid further bradycardia -will consider atropine if pt becomes symptomatic #Primary hypertension -will hold home antihypertensive to allow for permission HTN for 24 hours #insulin dependent type 2 diabetes #diabetic neuropathy #s/p BKA -A1c 4.8 on 07/19/24 -A1c is well controlled and BG are in target range. will hold starting sliding scale for now -continue home gabapentin 300mg BID #ESRD -Pt is on hemodialysis on ,, -Nephrology consulted for inpatient dialysis Health Maintenance Disposition: telemetry DVT Prophylaxis: Heparin 5000 units SC Q8 hrs GI Prophylaxis: none Diet: Renal diet with modification of dysphagia to mechanical altered and mildly thick level 2 Lines: Peripheral lines Code status: Full Assessment and plan discussed with my attending physician Dr. Katelin Fragoso (PGY-1)- Internal medicine resident Attending Provider Attestation/Addendum Fauzia Bender, DO, attest that I was physically present for the morel portions of the service and evaluated the patient with the resident and I reviewed and discussed the case with the resident and agree with the resident's findings and plans of care as documented above Patient seen and evaluated this AM. Patient states she had some cramping in his right side, but was able to move her right lower extremity. RUE remains flaccid. Plan for PPM placement this weekend. Continue with current management. Restart losartan 50mg PO daily due to uncontrolled HTN
--- NOTE | 2024-07-22 11:26 | PC.SS ---
SS received call from Melody (phone# [phone] ext. [phone]) a customer relations representative from patient's health insurance who explained [facility] out of network. SS has informed Melody [facility] declined and [facility] accepted pending female beds availability. Per Melody, they are contracted with [facility], [facility]mk[facility] Rod[facility] in [place] [facility]. SS met with pt who is aware and her choice is [facility]. SS has informed Melody and she explained [facility] has to initiate insurance authorization and pending authorization number is [id number]. SS has spoken to Roula at [facility] who states she will start insurance authorization. SS provided her with Melody's contact information and insurance authorization number.
--- NOTE | 2024-07-22 11:59 | PC.NURSE ---
Tx Ended, Blood returned w/o incident, UF Removed 1,3L
--- NOTE | 2024-07-22 12:08 | PC.SS ---
Follow up note; Pending pacemaker. Pt will d/c to [facility].
[2024-07-22] MEDS: GABAPENTIN 100 MG CAPSULE 300 MG PO ×2 (13:40→20:13)
[2024-07-22] MEDS: CLOPIDOGREL BISULFATE 75 MG TABLET PO (13:41)
[2024-07-22] MEDS: ASPIRIN EC 81 MG TABEC PO (13:41)
[2024-07-22] MEDS: ATORVASTATIN CALCIUM 10 MG TABLET 80 MG PO (20:13)
[2024-07-22] MEDS: BALSAM PERU/CASTOR OIL (Venelex) 60 GM TUBE TOP (21:37)
--- NOTE | 2024-07-22 23:48 | PD.NEUROPROG ---
Documentation for date of: 07/22/24 Subjective Subjective Interval history: Patient was seen in telemetry today. Continue to have right hemiparesis involving face arm and leg. Also complains of pain in the right arm and right leg. Exam - Neurology Vital Signs Temp Pulse Resp BP Pulse Ox O2 Del Method O2 Flow Rate 97.2 F 43 L 20 158/47 H 98 Room Air 1 07/22/24 20:00 07/22/24 20:27 07/22/24 20:00 07/22/24 20:27 07/22/24 20:00 07/22/24 16:00 07/22/24 12:34 Narrative Exam GENERAL APPEARANCE: Well hydrated, well-nourished in no acute distress. HEENT: Normocephalic, atraumatic, extraocular movements intact. Pupils: Equal reacting to light and accommodation NECK: Supple, no JVD or bruits. CARDIOVASULAR: Heart: S1, S2 heard, regular without S3-S4 or murmur no rubs or gallops. LUNGS/CHEST: Clear to auscultation bilaterally. No rails, rhonchi, or wheezing. Normal inspection. ABDOMEN: Soft, nontender, with normal bowel sounds. No pulsatile masses. No rebound, rigidity, or guarding. Normal inspection and palpation. EXTREMITIES: Normal inspection and palpation. No edema, clubbing or cyanosis. SKIN: Warm and dry without rashes. Normal inspection. MUSCULOSKELETAL: No cervical, thoracic, lumbar or midline bony tenderness. Normal inspection. NEURO: Alert, awake and oriented x3. Cranial nerves: II through XII grossly intact with exception of right facial weakness of upper motor neuron type. Speech and language: Normal with no dysarthria or dysphasia. Motor system: Tone and bulk: Normal: Strength: Right hemiparesis with the pronator drift. deep tendon reflexes: 2+ bilaterally symmetrical. Sensory system: Impaired to all modalities of sensation on the right. Coordination: Intact to cckzjn-fhnd-akjsuv test on the left. No ataxia, no dysmetria, or dysdiadochokinesia noted. No intention tremors noted. Gait: Could not be tested as the patient has bilateral amputation. no signs of meningeal irritation noted. PSYCHIATRIC: Normal mood and affect. Objective Labs 07/23/24 04:48 07/23/24 04:48 Labs: Laboratory Results - last 24 hr 07/22/24 06:19 WBC 8.6 RBC 3.35 L Hgb 10.3 L Hct 33.9 L MCV 101 H MCH 30.7 MCHC 30.4 L RDW Std Deviation 76.5 H Plt Count 206 Neut % (Auto) 72 Lymph % (Auto) 13 [place] % (Auto) 10 Eos % (Auto) 5 Baso % (Auto) 1 Neut # (Auto) 6.2 Lymph # (Auto) 1.1 [place] # (Auto) 0.9 H Eos # (Auto) 0.4 Baso # (Auto) 0.0 Immature Gran # (Auto) 0.02 H Absolute Nucleated RBC 0.02 H Immature Gran % 0 Nucleated RBC % 0 Sodium 132 L Potassium 4.5 Chloride 92 L Carbon Dioxide 26.6 Anion Gap 13 BUN 46 H Creatinine 5.9 H* D Estim Creat Clear Calc 7.7 L eGFR 7 L* BUN/Creatinine Ratio 8 L Glucose 93 Calculated Osmolality 276 Calcium 8.9 Corrected Calcium 9.1 Phosphorus 6.7 H Magnesium 2.2 Total Bilirubin 0.2 L AST 10 ALT 10 Alkaline Phosphatase 93 Total Protein 6.9 Albumin 3.7 Globulin 3.2 Albumin/Globulin Ratio 1.2 Assessment & Plan Additional Assessment & Plan Additional Plan: (1) Acute ischemic stroke: Status: Acute Assessment and plan: Manifesting as right hemiparesis with facial droop and dysarthria, from pontine infarct confirmed with MRI brain Continue with the Plavix and aspirin with statin (low HDL) Continue gabapentin 300 mg twice a day to help with the pain (2) ESRD (end stage renal disease) on dialysis: Status: Chronic Assessment and plan: Continue with the maintenance hemodialysis (3) Hypertension: continue with the blood pressure control but hold the beta-lillie
[2024-07-23] VITALS (9 sets, daily range): BP systolic 129–170; BP diastolic 43–64; PULSE 34–55; RESP 11–17; TEMP 35.6–36.8; O2SAT 97–100
--- NOTE | 2024-07-23 01:30 | ESPR_ITS ---
RE: CARMELA THIBODEAUX : 1960 DATE OF SERVICE: 07/22/2024 SUBJECTIVE: The patient is a 64-year-old lady with history of multiple medical problems who has history of bilateral [id number] amputations and multiple issues, admitted to the hospital with severe bradycardia, heart rate in the 30s, now up to 45. He has complete heart block, intermittent second-degree heart block as well. The patient also has suffered significant stroke, apparently a basal ganglia _ stroke with right-sided dense hemiplegia, hemiparesis, facial droop, dysarthria, pontine infarcts on MRI scan. Continue on aspirin and Plavix per now. The patient remains in sinus rhythm with intermittent second-degree and third-degree heart block, but heart rate has improved to 47 to 50 beats per minute.___ hemodynamically stable, not symptomatic currently. She is clinically doing about the same, not having shortness of breath or chest pain. Still has severe weakness. OBJECTIVE: Vital Signs: Shows blood pressure 100/60 _ and regular, respirations 18, and temperature normal. Neck: Supple. Lungs: Decreased breath sounds. Heart: S1-S2_ distant. Abdomen: Thin, soft. Extremities: Below the knee amputation in both lower extremities. Genitourinary: Not performed. Rectal: Not performed. Neurologic: The patient still has severe right-sided hemiparesis and weakness. Rest of the exam is unchanged. IMPRESSION: 1. Acute ischemic infarction involving basal ganglia and jose with right-sided symptoms, right hemiplegia. 2. Complete heart block and intermittent second-degree heart block, asymptomatic with resting heart rate around 45. 3. Hypertension. 4. Status post bilateral below the knee amputation. RECOMMENDATIONS: The patient clearly has severe bradycardia second-degree heart block, but blood pressure is normal. She is not symptomatic at rest, but she may be symptomatic when she is starting ambulation or rehabilitation. May consider pacemaker implantation if she continues to be severely bradycardic, she may not be able to tolerate any physical therapy. Again, this will be considered prior to discharge, but not today. DT: 23:43:42 TT: 01:00:00 Ref: [id number] - TID: [id number] [facility] [place]
[2024-07-23] MEDS: HEPARIN SOD INJ 5000 UNIT/ML VIAL SC ×3 (05:07→22:02)
[2024-07-23 06:20] LABS: Basophils % (Auto) 1 % (0-2.5); Eosinophils # (Auto) 0.4 Thou/mm3 (0.0-0.5); Eosinophils % (Auto) 5 % (0-10); Hematocrit 35.4 % (36.0-46.0); Hemoglobin 10.7 g/dL (12.0-16.0); Immature Granulocytes % (Auto) 0 % (0-0); Immature Granulocytes Auto 0.02 Thou/mm3 (0.00-0.00); Lymphocytes # (Auto) 1.1 Thou/mm3 (1.0-4.8); Lymphocytes % (Auto) 14 % (10-50); Mean Corpuscular HGB Conc 30.2 g/dl (31.0-37.0); Mean Corpuscular Hemoglobin 31.4 pg (25.0-35.0); Mean Corpuscular Volume 104 fL (80-100); Monocytes # (Auto) 0.9 Thou/mm3 (0.0-0.8); Monocytes % (Auto) 12 % (0-12); Neutrophils # (Auto) 5.1 Thou/mm3 (1.8-7.7); Neutrophils % (Auto) 67 % (37-80); Nucleated Red Blood Cell # 0.02 Thou/mm3 (0.00-0.00); Nucleated Red Blood Cell % 0 /100 WBC (0); Platelet Count 169 Thou/mm3 (140-440); RDW Standard Deviation 77.4 fL (36.4-46.3); Red Blood Count 3.41 Miln/mm3 (4.00-5.20); White Blood Count 7.6 Thou/mm3 (3.6-11.0)
[2024-07-23] MEDS: ACETAMINOPHEN 325 MG TABLET 650 MG PO ×2 (06:24→17:24)
[2024-07-23 06:56] LABS: Alanine Aminotransferase 15 U/L (10-49); Albumin, Serum 3.8 gm/dL (3.4-4.8); Albumin/Globulin Ratio 1.2 (1.2-2.2); Alkaline Phosphatase 96 U/L (46-116); Anion Gap 12 (7-16); Aspartate Amino Transferase 18 U/L (0-34); BUN/Creatinine Ratio 7 Ratio (12-20); Bilirubin,Total 0.2 mg/dL (0.3-1.2); Blood Urea Nitrogen 32 mg/dL (9-23); Calcium 9.3 mg/dL (8.3-10.6); Calcium (Corrected) 9.5 mg/dL (8.5-10.1); Carbon Dioxide 26.7 mMol/L (20.0-31.0); Chloride 96 mMol/L (98-107); Creatinine (Component) 4.4 mg/dL (0.6-1.3); Estimated Creatinine Clearance 10.5 mL/min (>60); Globulin 3.2 gm/dL (2.3-3.5); Glucose 94 mg/dL (74-106); Osmolality,Calculated 277 (275-295); Potassium 4.4 mMol/L (3.4-5.1); Sodium 135 mMol/L (136-145); eGFR 11 See Note
[2024-07-23] MEDS: GABAPENTIN 100 MG CAPSULE 300 MG PO ×2 (08:56→20:29)
[2024-07-23] MEDS: LOSARTAN POTASSIUM 25 MG TABLET 50 MG PO (08:57)
[2024-07-23] MEDS: ASPIRIN EC 81 MG TABEC PO (08:57)
[2024-07-23] MEDS: CLOPIDOGREL BISULFATE 75 MG TABLET PO (08:57)
[2024-07-23] MEDS: SEVELAMER CARBONATE 0.8 GM PACKET (NON-FORMULARY) PO ×2 (12:14→16:59)
[2024-07-23] MEDS: hydrALAZINE INJ 20 MG/ML VIAL 10 MG IV (12:14)
--- NOTE | 2024-07-23 15:14 | ESPR_ITS ---
Documentation for date of: 07/23/24 Subjective Subjective Interval history: Overnight events, labs reviewed. The patient examined this a.m. at bedside. The patient has no active complaints. Echocardiogram shows severe pulmonary artery hypertension RVSP 72, severe mitral stenosis. Per nephrology, hemodialysis per schedule, next dialysis on Thursday, started Renvela for hyperphosphatemia Per cardiology, severe bradycardia due to third-degree AV block, plan to implant pacemaker prior to discharge, if patient continues to be bradycardic. Exam Vital Signs Temp Pulse Resp BP Pulse Ox O2 Del Method O2 Flow Rate 98.3 F 42 L 11 L 170/64 H 99 Nasal Cannula 2 07/23/24 12:00 07/23/24 12:14 07/23/24 12:00 07/23/24 12:14 07/23/24 12:00 07/23/24 12:00 07/23/24 12:00 Narrative Exam GENERAL: A&Ox3 . Awake, Not in acute distress NEURO: no focal neurological deficits HEENT: Atraumatic, Normocephalic. mucous membranes moist. Eyes open, symmetrical, & clear HEART: Normal Heart Sounds LUNGS: Clear to auscultation with no wheezing or crackles. ABDOMEN: soft, non-distended, non-tender, bowel sounds heard, no guarding or rebound tenderness SKIN: No Rash or ecchymoses EXTREMITIES: No edema, tenderness, below knee amputation of lower extremities bilaterally NEURO:? ? MENTAL STATUS:?AOx3 and somnolence ? LANG/SPEECH: Fluent, intact naming, repetition & comprehension ? CRANIAL NERVES: ? II: Pupils equal and reactive, no RAPD,?left hemianopia ? III, IV, : EOM intact, no gaze preference or deviation ? V: normal ? VII: right side facial droop ? VIII: speech is clear ? MOTOR: 0/5 in right upper extremity and 1/5 motor right lower extremity and 5/5 left upper and lower extremities ? REFLEXES: deminished reflexes in right upper and right lower extremities. intached reflexes in left ? SENSORY: Normal to touch, temperature & pin prick in all extremiteis ? COORD: no tremor, no dysmetria Objective Labs 07/23/24 04:48 07/23/24 04:48 Labs: Laboratory Results - last 24 hr 07/23/24 04:48 WBC 7.6 RBC 3.41 L Hgb 10.7 L Hct 35.4 L MCV 104 H MCH 31.4 MCHC 30.2 L RDW Std Deviation 77.4 H Plt Count 169 D Neut % (Auto) 67 Lymph % (Auto) 14 White % (Auto) 12 Eos % (Auto) 5 Baso % (Auto) 1 Neut # (Auto) 5.1 Lymph # (Auto) 1.1 White # (Auto) 0.9 H Eos # (Auto) 0.4 Baso # (Auto) 0.0 Immature Gran # (Auto) 0.02 H Absolute Nucleated RBC 0.02 H Immature Gran % 0 Nucleated RBC % 0 Sodium 135 L Potassium 4.4 Chloride 96 L Carbon Dioxide 26.7 Anion Gap 12 BUN 32 H Creatinine 4.4 H* D Estim Creat Clear Calc 10.5 L eGFR 11 L* BUN/Creatinine Ratio 7 L Glucose 94 Calculated Osmolality 277 Calcium 9.3 Corrected Calcium 9.5 Total Bilirubin 0.2 L AST 18 ALT 15 Alkaline Phosphatase 96 Total Protein 7.0 Albumin 3.8 Globulin 3.2 Albumin/Globulin Ratio 1.2 Quality Measures Quality Measures stroke Suspected type of Stroke: Acute Ischemic Tenecteplase given: Reason(s) Tenecteplase not given: Outside the time window not given Rehab services: PT evaluation ordered VTE Prophylaxis: pharmaceutical Antithrombotic by day 2:: ordered Statin ordered: >75 y/o moderate or high intensity dose Anticoagulation ordered for A-fib or flutter (current or hx): ordered Advance care planning discussed with:: patient Assessment & Plan Assessment Current Active Medications: Generic Name Dose Route Start Last Admin Trade Name Freq PRN Reason Stop Dose Admin Acetaminophen 650 mg 07/19/24 21:27 07/23/24 06:24 Acetaminophen 325 Mg Tablet PO 08/18/24 21:26 650 mg Q6HR PRN Administration Fever >100.4 or Pain 1-10 Aspirin 81 mg 07/20/24 14:15 07/23/24 08:57 Aspirin Ec 81 Mg Tabec PO 08/19/24 14:14 81 mg QDAY KAYLIN Administration Atorvastatin Calcium 80 mg 07/19/24 21:00 07/22/24 20:13 Atorvastatin Calcium 10 Mg Tablet PO 08/18/24 20:59 80 mg HS KAYLIN Administration Balsam Vito/[place] Oil 0 gm 07/21/24 11:30 07/22/24 21:37 Balsam [place] Oil (Venelex) 60 Gm Tube TOP 08/20/24 11:29 1 applicatio BID KAYLIN Administration Clonidine 0.1 mg 07/22/24 21:00 07/23/24 11:19 Clonidine Hcl 0.1 Mg Tablet PO 08/21/24 20:59 Not Given BID KAYLIN Clopidogrel Bisulfate 75 mg 07/20/24 14:15 07/23/24 08:57 Clopidogrel Bisulfate 75 Mg Tablet PO 08/19/24 14:14 75 mg QDAY KAYLIN Administration Gabapentin 300 mg 07/21/24 09:00 07/23/24 08:56 Gabapentin 100 Mg Capsule PO 08/20/24 08:59 300 mg BID KAYLIN Administration Heparin Sodium (Porcine) 5,000 unit 07/22/24 22:00 07/23/24 14:07 Heparin Sod Inj 5000 Unit/Ml Vial SC 08/02/24 13:59 5,000 unit Q8HR KAYLIN Administration Hydralazine HCl 10 mg 07/20/24 22:13 07/23/24 12:14 Hydralazine Inj 20 Mg/Ml Vial IV 08/19/24 22:12 10 mg Q6HR PRN Administration SBP >170 Losartan Potassium 50 mg 07/21/24 09:00 07/23/24 08:57 Losartan Potassium 25 Mg Tablet PO 08/20/24 08:59 50 mg QDAY KAYLIN Administration Sevelamer Carbonate 0.8 gm 07/23/24 12:00 07/23/24 12:14 Sevelamer Carbonate 0.8 Gm Packet (Non-Formulary) PO 08/22/24 11:59 0.8 gm TIDWM KAYLIN Administration Plan Ms. Amaya is 64 y/o F with PMH significant for HTN, T2DM, ESRD (HD M,W,F) and bilateral BKA presented to the ED after worsening generalized weakness. Pt is admitted to telemetry for stroke up and cardio recommendations for bradycardia. #Acute ischemic CVA #Right sided hemiplegia -LKW: last night (07/18) 1800 -NIHSS = 9 for R HP, OS eye -Tele neuro consulted, recommendations appreciated -Head/neck CTA :Very atretic right vertebral artery in the neck with multiple areas of poor filling, 70% plus stenosis petrous portions both internal carotid arteries 80% plus stenosis both juxtasellar internal carotid artery segments, Intracranial right vertebral artery distally is occluded, Posterior cerebral middle cerebral anterior cerebral branches fill with no large vessel occlusions -Head CT : Negative for acute hemorrhage, mass effect or midline shift -MRI with MRA brain- 12 mm acute left brainstem infarcts, pontine level Plan: - Neuro checks q4HR - Keep head of bed elevated at 30 degrees - Bolus with Clopidogrel 300 mg bolus x1 and initiate dual antiplatelet therapy with Aspirin 81 mg daily and Clopidogrel 75 mg daily -?limit sedating meds -Euglycemia and Avoid Hyperthermia (PRN Acetaminophen) -?allow permissive HTN for first 24 hours than slowly and gradually goal normotension thereafter -?boewz-ykrppchyl-oqahvnnlzc workup (especially with U/A, UCx, UDS, CXR) -?Echocardiogram shows severe pulmonary artery hypertension RVSP 72, severe mitral stenosis. - lipid panel (cholesterol 86, LDL 25,HDL 36, choles/HDL ration 2.4, HbA1c, TSH(2.18) T4 7.4 - Referral to PT/OT/speech therapy - neuorology consulted, closely following #Third Degree AV block -Pt is aware her HR has been low for couple weeks, she was told at her dialysis session -likely third degree heart block per tele monitor although maintaining MAP >65 -Pt is extremely lethargic, denies syncope or dizziness plan: -cardiology is consulted, appreciate recommendations -will hold home metoprolol to avoid further bradycardia -will consider atropine if pt becomes symptomatic #Primary hypertension -will hold home antihypertensive to allow for permission HTN for 24 hours #insulin dependent type 2 diabetes #diabetic neuropathy #s/p BKA -A1c 4.8 on 07/19/24 -A1c is well controlled and BG are in target range. will hold starting sliding scale for now -continue home gabapentin 300mg BID #ESRD -Pt is on hemodialysis on ,, -Nephrology consulted for inpatient dialysis - Hemodilayiss per On license of [facility] Maintenance Disposition: telemetry DVT Prophylaxis: Heparin 5000 units SC Q8 hrs GI Prophylaxis: none Diet: Renal diet with modification of dysphagia to mechanical altered and mildly thick level 2 Lines: Peripheral lines Code status: Full Assessment and plan discussed with my attending physician Dr. Js Aggarwal (PGY-2)- Internal medicine resident Attending Provider Attestation/Addendum 64-year-old female with brainstem infarction, AV block, end-stage renal disease. The patient is being monitored. She has left-sided weakness and slurring of speech. She will continue dual antiplatelet treatment. Continue hemodialysis. Cardiology follow-up for possible pacemaker implantation.
[2024-07-23] MEDS: BALSAM PERU/CASTOR OIL (Venelex) 60 GM TUBE TOP ×2 (16:58→20:33)
[2024-07-23] MEDS: ATORVASTATIN CALCIUM 10 MG TABLET 80 MG PO (20:28)
[2024-07-23] MEDS: cloNIDine HCL 0.1 MG TABLET PO (20:29)
--- NOTE | 2024-07-23 23:55 | ESPR_ITS ---
Documentation for date of: 07/23/24 Subjective Subjective Interval history: Patient was seen in telemetry today. Continue to have right hemiparesis involving face arm and leg. Also complains of pain in the right hip and repositioning helped. Exam - Neurology Vital Signs Temp Pulse Resp BP Pulse Ox O2 Del Method O2 Flow Rate 98.3 F 45 L 17 138/47 H 99 Nasal Cannula 2 07/23/24 20:00 07/23/24 20:29 07/23/24 20:00 07/23/24 20:29 07/23/24 20:00 07/23/24 20:00 07/23/24 20:00 Objective Labs 07/23/24 04:48 07/23/24 04:48 Labs: Laboratory Results - last 24 hr 07/23/24 04:48 WBC 7.6 RBC 3.41 L Hgb 10.7 L Hct 35.4 L MCV 104 H MCH 31.4 MCHC 30.2 L RDW Std Deviation 77.4 H Plt Count 169 D Neut % (Auto) 67 Lymph % (Auto) 14 [place] % (Auto) 12 Eos % (Auto) 5 Baso % (Auto) 1 Neut # (Auto) 5.1 Lymph # (Auto) 1.1 [place] # (Auto) 0.9 H Eos # (Auto) 0.4 Baso # (Auto) 0.0 Immature Gran # (Auto) 0.02 H Absolute Nucleated RBC 0.02 H Immature Gran % 0 Nucleated RBC % 0 Sodium 135 L Potassium 4.4 Chloride 96 L Carbon Dioxide 26.7 Anion Gap 12 BUN 32 H Creatinine 4.4 H* D Estim Creat Clear Calc 10.5 L eGFR 11 L* BUN/Creatinine Ratio 7 L Glucose 94 Calculated Osmolality 277 Calcium 9.3 Corrected Calcium 9.5 Total Bilirubin 0.2 L AST 18 ALT 15 Alkaline Phosphatase 96 Total Protein 7.0 Albumin 3.8 Globulin 3.2 Albumin/Globulin Ratio 1.2 Assessment & Plan Additional Assessment & Plan Additional Plan: (1) Acute ischemic stroke: Status: Acute Assessment and plan: Manifesting as right hemiparesis with facial droop and dysarthria, from pontine infarct confirmed with MRI brain Continue with the Plavix and aspirin with statin (low HDL) Continue gabapentin 300 mg twice a day to help with the pain (2) ESRD (end stage renal disease) on dialysis: Status: Chronic Assessment and plan: Continue with the maintenance hemodialysis (3) Hypertension: continue with the blood pressure control but hold the beta-lillie
[2024-07-24] VITALS (18 sets, daily range): BP systolic 120–166; BP diastolic 48–91; PULSE 32–383; RESP 14–171; TEMP 36.1–36.6; O2SAT 97–100; BMI 39.5
[2024-07-24] MEDS: ACETAMINOPHEN 325 MG TABLET 650 MG PO (03:09)
[2024-07-24] MEDS: HEPARIN SOD INJ 5000 UNIT/ML VIAL SC ×2 (05:31→21:14)
[2024-07-24 05:59] LABS: Basophils % (Auto) 0 % (0-2.5); Eosinophils # (Auto) 0.5 Thou/mm3 (0.0-0.5); Eosinophils % (Auto) 5 % (0-10); Hematocrit 32.8 % (36.0-46.0); Hemoglobin 10.1 g/dL (12.0-16.0); Immature Granulocytes % (Auto) 0 % (0-0); Immature Granulocytes Auto 0.03 Thou/mm3 (0.00-0.00); Lymphocytes % (Auto) 12 % (10-50); Mean Corpuscular HGB Conc 30.8 g/dl (31.0-37.0); Mean Corpuscular Hemoglobin 31.6 pg (25.0-35.0); Mean Corpuscular Volume 103 fL (80-100); Monocytes # (Auto) 0.9 Thou/mm3 (0.0-0.8); Monocytes % (Auto) 10 % (0-12); Neutrophils # (Auto) 6.1 Thou/mm3 (1.8-7.7); Neutrophils % (Auto) 72 % (37-80); Nucleated Red Blood Cell % 0 /100 WBC (0); Platelet Count 123 Thou/mm3 (140-440); RDW Standard Deviation 76.1 fL (36.4-46.3); White Blood Count 8.5 Thou/mm3 (3.6-11.0)
[2024-07-24 06:25] LABS: Alanine Aminotransferase 21 U/L (10-49); Albumin, Serum 3.6 gm/dL (3.4-4.8); Albumin/Globulin Ratio 1.2 (1.2-2.2); Alkaline Phosphatase 87 U/L (46-116); Anion Gap 12 (7-16); Aspartate Amino Transferase 34 U/L (0-34); BUN/Creatinine Ratio 9 Ratio (12-20); Bilirubin,Total < 0.2 mg/dL (0.3-1.2); Blood Urea Nitrogen 50 mg/dL (9-23); Calcium 8.5 mg/dL (8.3-10.6); Calcium (Corrected) 8.8 mg/dL (8.5-10.1); Carbon Dioxide 23.4 mMol/L (20.0-31.0); Chloride 93 mMol/L (98-107); Creatinine (Component) 5.7 mg/dL (0.6-1.3); Estimated Creatinine Clearance 8.1 mL/min (>60); Globulin 3.1 gm/dL (2.3-3.5); Glucose 99 mg/dL (74-106); Osmolality,Calculated 270 (275-295); Potassium 5.7 mMol/L (3.4-5.1); Sodium 128 mMol/L (136-145); Total Protein 6.7 gm/dL (5.7-8.2); eGFR 8 See Note
[2024-07-24] MEDS: SOD POLYSTYRENE SULFON SUSP 15 GM/60 ML BTL PO (07:44)
[2024-07-24] MEDS: CLOPIDOGREL BISULFATE 75 MG TABLET PO (08:31)
[2024-07-24] MEDS: ASPIRIN EC 81 MG TABEC PO (08:32)
[2024-07-24] MEDS: BALSAM PERU/CASTOR OIL (Venelex) 60 GM TUBE TOP ×2 (08:32→21:12)
[2024-07-24] MEDS: GABAPENTIN 100 MG CAPSULE 300 MG PO ×2 (08:32→21:09)
--- NOTE | 2024-07-24 10:19 | PC.SS ---
Followed up with Roula from [facility] on Auth and stated that Auth is still pending.
--- NOTE | 2024-07-24 13:48 | XR_ITS ---
Examination: Chest AP 2 views Fluoroscopy. Exam date and time: July 24, 2024, 4:47 PM. INDICATIONS: Cardiac pacemaker insertion today. TECHNIQUE AND FINDINGS: . 2 spot fluoroscopic films of the chest Cardiac leads appear satisfactory position. Fluoroscopy 405 seconds radiation dose 215.26 mgy IMPRESSION: Cardiac pacemaker insertion with satisfactory position cardiac leads.
--- NOTE | 2024-07-24 16:00 | SUR.PHASEI ---
received pt and report from SHARDA Jennings and Dr. Coburn. Pt resting with eyes closed. Pt arousable to voice. vss, dressing to right upper chest CDI. pt denies any pain. Iv to rt fa intact, no s/s of redness or infiltration to site. scab to 3rd digit of left hand. will continue to monitor.
--- NOTE | 2024-07-24 16:05 | XR_ITS ---
Examination: AP chest single view TECHNIQUE: AP portable semiupright chest single view Standing time: July 24, 2024 1643 hours Comparison April 13, 2023 INDICATIONS: Postop pacemaker insertion. FINDINGS: Cardiac leads satisfactory position No pneumothorax Mild heart failure Moderate osteopenia IMPRESSION: Cardiac leads satisfactory position
--- NOTE | 2024-07-24 16:10 | PD.ANESPROG ---
Documentation for date of: 07/24/24 ANESTHESIA NOTE: Patient had monitored sedation for pacemaker placement just now. Pre-op, I saw her in 260, she was alert and calm in bed, NAD, endorsed dyspnea on exertion, was on 2 l/min NC O2, denied chest pains. She has h/o ESRD, last HD 07/22/24 via L arm AVF, HTN and DM per chart and she is found to have acute CVA with R sided paralysis and also found to have bradycardia including 3 deg AVB. Her pre-op K is 5.7 and she was given Kayexalate on the floor this am. She did well intra-op and pacemaker was placed successfully. She received 1 gm IV Ancef and about 200 cc of NS and I also gave her half amp of NaBicarb slow IV. She is currently in PACU, doing well, VSS, NAD. L arm AVF was protected intra-op and has palpable thrill on arrival to PACU. Jordi Coburn MD Anesthesia Progress Note Progress Note Most recent Vital Signs: Last Vital Signs Temp 97.9 F 07/24/24 12:00 Pulse 36 L 07/24/24 12:00 Resp 16 07/24/24 12:00 BP 143/83 H 07/24/24 12:00 Pulse Ox 97 07/24/24 12:00 O2 Del Method Nasal Cannula 07/24/24 12:00 O2 Flow Rate 2 07/24/24 12:00
--- NOTE | 2024-07-24 16:35 | SUR.PHASEI ---
report given to SHARDA Jack. pt recovering well, vss. pt awake A&O x4, no distress noted. Pt denies any pain or nausea. dressing remains cdi. iv still intact. waiting for xray to be completed
--- NOTE | 2024-07-24 16:45 | SUR.PHASEI ---
xray at bedside. pt tolerating well
--- NOTE | 2024-07-24 16:52 | SUR.PHASEI ---
pt tolerated transfer via [facility] tele monitor.
--- NOTE | 2024-07-24 17:11 | ESOP_ITS ---
RE: CARMELA THIBODEAUX : 1960 DATE OF OPERATION: 07/24/2024 PROCEDURE PERFORMED: Implantation of dual-chamber AV sequential permanent pacemaker, CPT 01264. PREOPERATIVE DIAGNOSES: Complete heart block, symptomatic bradycardia. POSTOPERATIVE DIAGNOSIS: Successful implantation of dual-chamber AV sequential permanent pacemaker. MANUFACTURE: [employer]. ANESTHESIA: Monitored anesthesia MAC ANESTHESIOLOGIST: Jordi Coburn MD HISTORY AND INDICATIONS: The patient is a 64-year-old female with a past medical history of hypertension and bilateral tcawz-zwy-yvsh amputation, admitted to hospital with stroke. The patient was found to have complete heart block initially and now has second- degree Mobitz type II AV block, heart rate only 30 beats per minute, having severe dizziness, near syncope, and lightheadedness. Continues to feel very weak and dizzy, unable to move her right upper extremity or left upper extremity without getting dizziness and weakness. Heart rate never improved more than 32, even go to high 20s at times with intermittent 30-degree heart block. Because symptomatic bradycardia advanced 30-degree heart block, the patient was recommended to have a dual-chamber permanent pacemaker implantation. DESCRIPTION OF PROCEDURE: The patient was brought to the operating room. Informed consent was obtained. Anesthesiologist also obtained the consent. Right subclavian approach was taken because of left-sided AV fistula. The right subclavian vein was cannulated by micropuncture technique after giving local anesthesia. Two guidewires were introduced. Linear incision was made. Blunt dissection pocket was created for generator. A 6-Serbian atrial and ventricle leads by [employer] was advanced to the right atrial appendage, right ventricular apex. Active fixation leads were used. Thresholds were obtained to be satisfactory. After obtaining satisfactory threshold, both leads were anchored to the pectoralis fascia with 2-0 silk suture. [employer] dual-chamber pacemaker generator was then attached to the leads and was placed in the pocket. The generator was secured with 2-0 silk suture to the subcutaneous tissue. The subcutaneous tissue was closed with 2-0 chromic continuous suture with SH needle. Skin was closed using konstantin and the patient tolerated the operation very well. No complications. Chest x-ray was obtained post procedure. No pneumothorax. Estimated blood loss less than 10 mL. SUMMARY OF FINDINGS: Successful implantation of dual-chamber permanent pacemaker. No complications during the procedure. DEVICE DETAILS: The details of the device as follows. The device is manufactured by [employer]. The model number is L311. The serial number is [id number]. The atrial lead is 45 cm lead, [employer] [id number] and the serial number is [id number]. The ventricle lead is Ingevity, [employer], [id number], 52 cm length, serial number is [id number]. The pacemaker is programmed with dual-chamber mode DDD. The thresholds are as follows: The threshold in the P- wave is 2.4 millivolts, threshold 1 volt in the atrium. Lead impendence 550 at the ventricle. Threshold is 10 millivolts of R-waves, sensing threshold is 0.8 volts, impedance 850 ohms. The patient was programmed a rate of 60 beats lower rate limit, upper rate limit 130. SUMMARY: Successful implantation of dual chamber AV sequential permanent pacemaker. No complications during the operation. DT: 16:07:45 TT: 17:09:00 Ref: [id number] TID: [id number]
[2024-07-24] MEDS: SEVELAMER CARBONATE 0.8 GM PACKET (NON-FORMULARY) PO (17:49)
[2024-07-24] MEDS: HYDROcodone/APAP 5/325 TABLET 1 TAB PO (19:52)
[2024-07-24] MEDS: cloNIDine HCL 0.1 MG TABLET PO (21:09)
[2024-07-24] MEDS: ATORVASTATIN CALCIUM 10 MG TABLET 80 MG PO (21:09)
--- NOTE | 2024-07-24 22:52 | VVPN_ITS ---
Telemedicine visit statement This visit was conducted with the use of interactive audio and video telecommunications system that permits real time communication between the patient and the provider. Patient's verbal consent for virtual visit was obtained on 07/24/24 at 2252. Documentation for date of: 07/24/24 Subjective Subjective Interval history: Patient is in telemetry. Complains of back pain and was started on gabapentin. Continues to have right sided weakness including facial droop and dysarthria. She has some tingling now in the LE. She got the pacemaker placed today. Virtual exam Vital Signs Temp Pulse Resp BP Pulse Ox O2 Del Method O2 Flow Rate 97.7 F 69 17 153/78 H 98 Nasal Cannula 2 07/24/24 20:00 07/24/24 21:09 07/24/24 20:00 07/24/24 21:09 07/24/24 20:00 07/24/24 20:00 07/24/24 20:00 Objective Labs 07/24/24 05:40 07/24/24 05:40 Labs: Laboratory Results - last 24 hr 07/24/24 05:40 WBC 8.5 RBC 3.20 L Hgb 10.1 L Hct 32.8 L MCV 103 H MCH 31.6 MCHC 30.8 L RDW Std Deviation 76.1 H Plt Count 123 L D Neut % (Auto) 72 Lymph % (Auto) 12 [place] % (Auto) 10 Eos % (Auto) 5 Baso % (Auto) 0 Neut # (Auto) 6.1 Lymph # (Auto) 1.0 [place] # (Auto) 0.9 H Eos # (Auto) 0.5 Baso # (Auto) 0.0 Immature Gran # (Auto) 0.03 H Absolute Nucleated RBC 0.00 Immature Gran % 0 Nucleated RBC % 0 Sodium 128 L Potassium 5.7 H D Chloride 93 L Carbon Dioxide 23.4 Anion Gap 12 BUN 50 H Creatinine 5.7 H* D Estim Creat Clear Calc 8.1 L eGFR 8 L* BUN/Creatinine Ratio 9 L Glucose 99 Calculated Osmolality 270 L Calcium 8.5 Corrected Calcium 8.8 Total Bilirubin < 0.2 L AST 34 ALT 21 Alkaline Phosphatase 87 Total Protein 6.7 Albumin 3.6 Globulin 3.1 Albumin/Globulin Ratio 1.2 Assessment & Plan Problem List (1) Acute ischemic stroke: Status: Acute Assessment and plan: Manifesting as right hemiparesis with facial droop and dysarthria, from pontine infarct confirmed with MRI brain Continue with the Plavix and aspirin with statin (low HDL) (2) ESRD (end stage renal disease) on dialysis: Status: Chronic Assessment and plan: Continue with the maintenance hemodialysis (3) Hypertension: Status: Chronic Assessment and plan: Continue with blood pressure control.
[2024-07-25] VITALS (26 sets, daily range): BP systolic 91–162; BP diastolic 34–90; PULSE 59–78; RESP 11–19; TEMP 36.1–36.6; O2SAT 95–98; BMI 40.4
[2024-07-25] MEDS: HEPARIN SOD INJ 5000 UNIT/ML VIAL SC ×2 (05:01→13:46)
[2024-07-25] MEDS: HYDROcodone/APAP 5/325 TABLET 1 TAB PO ×2 (05:01→14:08)
[2024-07-25 06:29] LABS: Basophils % (Auto) 0 % (0-2.5); Eosinophils # (Auto) 0.4 Thou/mm3 (0.0-0.5); Eosinophils % (Auto) 5 % (0-10); Hemoglobin 9.5 g/dL (12.0-16.0); Immature Granulocytes % (Auto) 0 % (0-0); Immature Granulocytes Auto 0.03 Thou/mm3 (0.00-0.00); Lymphocytes # (Auto) 0.8 Thou/mm3 (1.0-4.8); Lymphocytes % (Auto) 9 % (10-50); Mean Corpuscular HGB Conc 30.6 g/dl (31.0-37.0); Mean Corpuscular Hemoglobin 31.3 pg (25.0-35.0); Mean Corpuscular Volume 102 fL (80-100); Monocytes # (Auto) 0.8 Thou/mm3 (0.0-0.8); Monocytes % (Auto) 9 % (0-12); Neutrophils # (Auto) 6.6 Thou/mm3 (1.8-7.7); Neutrophils % (Auto) 77 % (37-80); Nucleated Red Blood Cell % 0 /100 WBC (0); Platelet Count 131 Thou/mm3 (140-440); RDW Standard Deviation 74.3 fL (36.4-46.3); Red Blood Count 3.04 Miln/mm3 (4.00-5.20); White Blood Count 8.6 Thou/mm3 (3.6-11.0)
[2024-07-25 07:03] LABS: Alanine Aminotransferase 18 U/L (10-49); Albumin, Serum 3.6 gm/dL (3.4-4.8); Albumin/Globulin Ratio 1.2 (1.2-2.2); Alkaline Phosphatase 90 U/L (46-116); Anion Gap 14 (7-16); Aspartate Amino Transferase 24 U/L (0-34); BUN/Creatinine Ratio 12 Ratio (12-20); Bilirubin,Total 0.2 mg/dL (0.3-1.2); Blood Urea Nitrogen 75 mg/dL (9-23); Calcium 8.6 mg/dL (8.3-10.6); Calcium (Corrected) 8.9 mg/dL (8.5-10.1); Carbon Dioxide 27.1 mMol/L (20.0-31.0); Chloride 90 mMol/L (98-107); Creatinine (Component) 6.5 mg/dL (0.6-1.3); Estimated Creatinine Clearance 7.2 mL/min (>60); Globulin 2.9 gm/dL (2.3-3.5); Glucose 87 mg/dL (74-106); Osmolality,Calculated 283 (275-295); Potassium 5.2 mMol/L (3.4-5.1); Sodium 131 mMol/L (136-145); Total Protein 6.5 gm/dL (5.7-8.2); eGFR 7 See Note
[2024-07-25] MEDS: SEVELAMER CARBONATE 0.8 GM PACKET (NON-FORMULARY) PO ×3 (07:26→16:57)
--- NOTE | 2024-07-25 08:32 | PC.NURSE ---
bp trending down, uf goal lowered to 2l as tolerated will cont. to monitor
[2024-07-25] MEDS: ALBUMIN HUMAN 25% IVPB 25 GM/100 ML BTL IV (09:00)
--- NOTE | 2024-07-25 09:02 | PC.NURSE ---
bp trending down, will admin prn albumin per md orders and cont. to monitor
--- NOTE | 2024-07-25 09:50 | PC.SS ---
Addendum entered by Letha Peguero 07/25/24 13:56: SS spoke to Melody from patient's health insurance who explained she has not received initiated insurance authorization request from [facility]. Melody is aware Roula from [facility] has been attempting to contact her since Thursday but was not successful. Roula from [facility] has submitted request for insurance authorization today and Melody is aware pt is ready for dc. Melody explained authorization request has to be reviewed. Pt is aware. Original Note: Follow up note: Dialysis today. [facility] [place] [phone]. Pt will d/c to [facility].
--- NOTE | 2024-07-25 11:25 | PD.IMPROG ---
Documentation for date of: 07/25/24 Subjective Subjective Interval history: Patient seen and examined at the bedside. No new cardiac complaints in the last 24 hours Telemetry reviewed the patient heart rate between 60 to 60 bpm and is paced rhythm. Patient tolerated dual-chamber pacemaker procedure well 07/24/[address] Renae No evidence of any right-sided hematoma or bruising or bleeding. The pacemaker site covered with sterile dressing. Patient has been on aspirin and Plavix given her history of recent acute stroke and recommended to continue that at the time of discharge and recommended to follow-up with me in the clinic in 7 days to reevaluate the pacemaker site and to remove the konstantin. Blood pressure appears to be adequately controlled at the present regimen and we will continue to uptitrate medications as outpatient for now continue losartan and amlodipine and can increase losartan dose to 100 mg once daily. Now that the patient has been pacemaker patient can be started on beta-blockers if the blood pressure continues to be high and recommended to follow-up in the office within 7 days. Will plan for an outpatient Holter monitor to rule out any kind of occult atrial fibrillation as part of the evaluation of the stroke. Exam Vital Signs Temp Pulse Resp BP Pulse Ox O2 Del Method O2 Flow Rate 97.7 F 61 18 119/57 L 98 Nasal Cannula 2 07/25/24 11:02 07/25/24 11:21 07/25/24 11:02 07/25/24 11:21 07/25/24 11:02 07/25/24 08:00 07/25/24 11:02 Narrative Exam General: AAOx3, NAD, HEENT: Moist mucous membranes, conjunctiva clear, EOMI, PERRLA, Cardiovascular: S1, S2, radial pulses +2 bilat, bradycardic Pulmonary: CTAB bilat no cough, no wheezing, on 1L NC GI: No tenderness to light or deep palpitation, no guarding, rigidity, rebound tenderness or distension Extremities: bilat BKA Neuro: AAOx3, Some R sided facial droop, 0/5 motor strength in UE and LE, still able to smile and move tongue Psych: Cooperative Objective Labs 07/25/24 06:19 07/25/24 06:19 Labs: Laboratory Results - last 24 hr 07/25/24 06:19 WBC 8.6 RBC 3.04 L Hgb 9.5 L Hct 31.0 L MCV 102 H MCH 31.3 MCHC 30.6 L RDW Std Deviation 74.3 H Plt Count 131 L Neut % (Auto) 77 Lymph % (Auto) 9 L [place] % (Auto) 9 Eos % (Auto) 5 Baso % (Auto) 0 Neut # (Auto) 6.6 Lymph # (Auto) 0.8 L [place] # (Auto) 0.8 Eos # (Auto) 0.4 Baso # (Auto) 0.0 Immature Gran # (Auto) 0.03 H Absolute Nucleated RBC 0.00 Immature Gran % 0 Nucleated RBC % 0 Sodium 131 L Potassium 5.2 H D Chloride 90 L Carbon Dioxide 27.1 Anion Gap 14 BUN 75 H Creatinine 6.5 H* D Estim Creat Clear Calc 7.2 L eGFR 7 L* BUN/Creatinine Ratio 12 Glucose 87 Calculated Osmolality 283 Calcium 8.6 Corrected Calcium 8.9 Total Bilirubin 0.2 L AST 24 ALT 18 Alkaline Phosphatase 90 Total Protein 6.5 Albumin 3.6 Globulin 2.9 Albumin/Globulin Ratio 1.2 Assessment & Plan A&P Jean Briggs is a 64-year-old female past medical history of ESRD (Thursday, sees Dr Mai, on dialysis for the past 1 to 5 years), type 2 diabetes, hypertension who comes is currently admitted for acute CVA and third-degree complete heart block. #Third-degree AV block status post dual-chamber pacemaker placement on 07/24/2024 #Symptomatic bradycardia #History of hypertension #Acute CVA with residual R sided motor deficits # HFpEF/diastolic CHF along with ESRD on HD # Severe mitral stenosis with mean PG of 15 mmHg severe MAC, mild to moderate MR # Mild aortic stenosis # Moderate PAH Patient has been experiencing bradycardia over the past couple of weeks However patient only became symptomatic recently Patient was on a beta-lillie at some point, however stopped that Patient recently just had a stroke which was 12 mm in the acute left brainstem, pontine level Patient could be bradycardic with stroke affect Patient remains to be 2-1 AV block and junctional bradycardia. Patient just had a CVA, will see how she improves and CVA Considering patient has 0 out of 5 motor strength in right upper and lower extremity, patient is unlikely to be a pacemaker candidate at this time. TSH 2.18, A1c 4.8, LDL 25, total cholesterol 86 Echo completed 07/21/2023 showed Negative bubble study with no clear evidence of any PFO/ASD Normal LV size and function. Estimated EF 55-60 %. Mild LVH. Diastolic dysfunction present but cannot be graded deu to severe MAC Normal RV size and function. Estimated RVSP, 72 mmHg. RAP 15. Atleast moderate to severe PAH. Severely calcified and thickened mitral leaflets with severe MAC. Severe mitral stenosis with a mean PG of 15 mm hg. Moderate biatrial dilation. Mild aortic stenosis with moderate clacification. mean PG 11 mm hg. Mild to moderate MR. Mild TR. Dilated IVC. Plan: No new cardiac complaints in the last 24 hours Telemetry reviewed the patient heart rate between 60 to 60 bpm and is paced rhythm. Patient tolerated dual-chamber pacemaker procedure well 07/24/[address] Renae No evidence of any right-sided hematoma or bruising or bleeding. The pacemaker site covered with sterile dressing. Patient has been on aspirin and Plavix given her history of recent acute stroke and recommended to continue that at the time of discharge and recommended to follow-up with me in the clinic in 7 days to reevaluate the pacemaker site and to remove the konstantin. Blood pressure appears to be adequately controlled at the present regimen and we will continue to uptitrate medications as outpatient for now continue losartan and amlodipine and can increase losartan dose to 100 mg once daily. Now that the patient has been pacemaker patient can be started on beta-blockers if the blood pressure continues to be high and recommended to follow-up in the office within 7 days. Will plan for an outpatient Holter monitor to rule out any kind of occult atrial fibrillation as part of the evaluation of the stroke. Keep magnesium and potassium above 2 and 4 effectively to avoid any arrhythmias Follow-up TSH, A1c, lipid panel #[id number] type 2 diabetes #Status post bilateral BKA A1c 4.8 Plan: ? Primary team to handle blood sugars #Acute CVA #residual right sided weakness #Bradycardia #ESRD, on HD MWF followed by nephrology Dr. Mai #Anemia of chronic disease # Diastolic CHF or HFpEF Management of rest of the medical conditions as per primary team and other consultants. Thank you for the consult and allowing me to participate in the care of the patient. Cardiology will continue to follow. Josh Patricio M.D. Interventional Cardiology Time Spent With Patient Time: Total time spent is greater than 50% in coordination of care (as documented) at patient's floor/unit and/or counseling patient:
[2024-07-25] MEDS: GABAPENTIN 300 MG CAPSULE PO (12:33)
[2024-07-25] MEDS: ASPIRIN EC 81 MG TABEC PO (12:34)
[2024-07-25] MEDS: CLOPIDOGREL BISULFATE 75 MG TABLET PO (12:34)
[2024-07-25] MEDS: BALSAM PERU/CASTOR OIL (Venelex) 60 GM TUBE TOP (12:39)
[2024-07-25] MEDS: cloNIDine HCL 0.1 MG TABLET PO (12:39)
[2024-07-25] MEDS: ceFAZolin/D5W 1 GM IVPB 1 GM/50 ML BAG IV (13:46)
--- NOTE | 2024-07-25 15:29 | PC.SS ---
SS [facility] for [facility]. Ref# [id number]. Pt is on 2 liters of O2. has sent patient's facesheet and amublance form to [facility] using [employer]. spoke to Pari from [facility] who has confirmed they have been contacted by [facility] and transportation is setup for 6pm to [facility]. Pt is aware. Roula at [facility] is aware. Bedside nurse, Marcie is aware. Divya ZUNIGA is aware.
--- NOTE | 2024-07-25 15:30 | ESDS_ITS ---
<Statement entered by Jose Regalado MD - 07/26/24 16:07> Agree with plan and examination finding on the note below. Patient seen and examined at bedside today. Labs and imaging reviewed. Patient care discussed with my attending and co-resident Dr. Alvarado Planned Discharge Date 07/25/24 DS: Providers Provider Date of admission: 07/19/24 10:11 Primary care physician: Naty Torres MD Admitting Provider: Fauzia Thomason DO Attending Provider on Admission: Marky Che DO Consults: 07/19/24 10:14 Consult to Neurology / Tele-Neurology Stat Comment: stroke with right sided hemiparesis Consulting Provider: Azael Sullivan Referral Physical Therapy Stat Comment: Physician Instructions: Referral Speech Therapy Stat Comment: 07/19/24 10:17 Consult to Cardiology Stat Comment: Consulting Provider: Josh Patricio Consult to Nephrology Stat Comment: Consulting Provider: Irlanda Mai 07/20/24 17:56 Referral Wound Care Routine Comment: Photos on chart. 07/21/24 10:16 Consult to Cardiology Routine Comment: Consulting Provider: Jack Renae 07/21/24 11:27 Referral Nutritional Services Routine Comment: wounds present on admission Attending Provider on DC: Edgar Alvarado MD Discharging Provider: Edgar Alvarado MD DS: Diagnosis Problem List Completed Was Problem List Reviewed/Reconciled?: Yes Hospital Course Hospital Course Hospital course: 64-year-old female with past medical history of hypertension, type 2 diabetes, ESRD on HD and bilateral BKA presented to the hospital with generalized weakness and admitted for stroke workup. On imaging studies head CT was negative however MRI with MRI of the brain showed 12 mm acute left brainstem infarct on the pontine level. Due to the following, the patient developed right-sided hemiparesis which involved with the face, arm and leg. Patient also at this time developed complete heart block with narrow QRS complex and junctional escape rhythm; as such both neurology and cardiology were consulted. Further complete heart block patient had successful implantation of dual-chamber permanent pacemaker without any acute complications noted. Neurology also followed the patient very closely and their recommendations were to continue Plavix and aspirin along with statin for the acute stroke. During hospita lization, nephrology was also consulted since the patient has history of ESRD and required hemodialysis in the hospital. Patient will be discharged with the following strict instructions. Recommend discontinuing metoprolol tartrate due to concern for low heart rate. New medications added are clopidogrel 75 mg/day, losartan 50 mg/day and atorvastatin 80 mg per night. Recommend to follow-up with your primary doctor within 5 days of discharge from the hospital. Also recommend following up with schedule supervisor Dr. Patricio and neurologist Dr Sullivan within 2 weeks of discharge from the hospital. In case of worsening symptoms, please return to the emergency room. Hospital Diagnosis: #Acute ischemic CVA #Right sided hemiplegia #Third Degree AV block #Primary hypertension #insulin dependent type 2 diabetes #diabetic neuropathy s/p BKA #ESRD on HD Edgar Alvarado, PGY-1 Status at Discharge Overall status at discharge: patient is progressing back to baseline Time Spent with Patient Time attestation: Total time spent providing and/or coordinating discharge services: 45 minutes Time spent: Greater than 30 minutes Exam Vital Signs Temp Pulse Resp BP Pulse Ox O2 Del Method O2 Flow Rate 97.3 F 66 19 154/71 H 96 Nasal Cannula 2 07/25/24 12:20 07/25/24 12:39 07/25/24 12:20 07/25/24 12:39 07/25/24 12:20 07/25/24 12:20 07/25/24 12:20 Narrative Exam General: Awake, appears stated age, answers questions appropriately HEENT: Moist mucous membranes, conjunctiva clear, EOMI, PERRLA Cardiovascular: S1, S2, radial pulses +2 b/l Pulmonary: CTAB, no cough, no wheezing, on room air GI: Nontender to light or deep palpitation, no guarding, rigidity, rebound tenderness or distension Extremities: b/l BKA Neuro: AAOx3, 2/5 motor strength in R UE vs L UE of 5/5 and LE Discharge Plan Plan Patient Disposition: Xfer Skilled Nsg Fac (SNF) Care Plan Goals: Recommend discontinuing metoprolol tartrate due to concern for low heart rate. New medications added are clopidogrel 75 mg/day, losartan 50 mg/day and atorvastatin 80 mg per night. Recommend to follow-up with your primary doctor within 5 days of discharge from the hospital. Also recommend following up with schedule supervisor Dr. Patricio and neurologist Dr Sullivan within 2 weeks of discharge from the hospital. In case of worsening symptoms, please return to the emergency room. Wound Care: 1) Unstageable to left anterior BKA stump. Stage 2 to left buttocks. DTI to right posterior thigh. Trauma to let 3rd finger: cleanse with wound cleanser, pat dry, apply Venelex and cover with alleyven dressing BID/PRN for soiling or fallin off. Prescriptions/Referrals Prescriptions/Med Rec: New atorvastatin 80 mg tablet 80 mg PO HS 30 Days Qty: 30 0RF clopidogrel 75 mg Tablet 75 mg PO QDAY 30 Days Qty: 30 0RF losartan 50 mg tablet 50 mg PO QDAY 30 Days Qty: 30 0RF hydrocodone-acetaminophen 5-325 mg tablet 1 tab PO Q8H MDD 3 pills daily PRN (Reason: pain) Qty: 10 0RF sevelamer carbonate [Renvela] 0.8 gram powder in packet 0.8 g PO TIDWM Qty: 90 0RF Rx Instructions: must administer with a meal/food Patient prefers powder over oral sevelamer. Continued gabapentin 300 MG capsule 100 mg PO TID Qty: 0 aspirin 81 MG tablet,chewable 81 mg PO HS Qty: 0 furosemide [Lasix] 40 MG tablet 80 mg PO MWF Qty: 0 sevelamer carbonate 800 mg tablet 800 mg PO TIDWM Patient Comments: TAKE 3 TABLETS WITH MEALS ORALLY THREE TIMES A DAY amlodipine 10 mg tablet 10 mg PO DAILY vitamin B complex Tablet 1 tab PO QDAY loratadine 10 mg tablet 10 mg PO DAILY Patient Comments: TAKE 1 TABLET BY MOUTH EVERY DAY cholecalciferol (vitamin D3) 100 mcg (4,000 unit) Capsule 1,000 mcg PO DAILY Discontinued metoprolol tartrate 25 mg tablet 25 mg PO BID Patient Comments: TAKE 1 TABLET BY MOUTH TWICE A DAY Referrals: Naty Torres MD [Primary Care Provider] - Jack Renae MD [Physician] - Azael Sullivan MD [Physician] - Patient/Caregiver Discharge Instructions Education Materials: Pacemakers, Discharge Instructions for ..., Discharge Instructions for Stroke Print Language: Portuguese Stand Alone Forms: Melvina Award Info., Patient Portal Info Letter Discharge Order Discharge Orders: Discharge (Routine); Ordered 07/25/24 Ordered By: Alan Aggarwal Quality Discharge Quality Measures VTE prophylaxis MD Attestestation MD Attestation I have discussed and was present for the essential components of the discharge history, physical examination, diagnosis, and discharge treatment plan with the resident. I agree with the patient's discharge care as documented by the resident and amended herein by me. Lennox Che DO. The patient understood all discharge instructions, all questions were answered satisfactorily. The patient was instructed to return to the Emergency Department is symptoms worsened or persisted. Although this document has been carefully reviewed, there may still be some phonetic and other typographical errors. These errors are purely grammatical due to imperfections in the software program and should not be construed in any way to compromise the substance of the patient's medical care during this visit.
--- NOTE | 2024-07-25 18:53 | PC.NURSE ---
Patient discharged to [facility], report given to Lisbeth. Patient pick remover by [facility]. Vital signs stable on discharge.
--- NOTE | 2024-07-25 23:53 | ESPR_ITS ---
Documentation for date of: 07/25/24 Subjective Subjective Interval history: Patient was seen in telemetry today. Continue to have right hemiparesis involving face arm and leg. Also complains of pain in the right hip and repositioning helped. Exam - Neurology Vital Signs Temp Pulse Resp BP Pulse Ox O2 Del Method O2 Flow Rate 97.1 F 66 18 143/75 H 95 Nasal Cannula 2 07/25/24 18:53 07/25/24 18:53 07/25/24 18:53 07/25/24 18:53 07/25/24 18:53 07/25/24 18:53 07/25/24 18:53 Objective Labs 07/25/24 06:19 07/25/24 06:19 Labs: Laboratory Results - last 24 hr 07/25/24 06:19 WBC 8.6 RBC 3.04 L Hgb 9.5 L Hct 31.0 L MCV 102 H MCH 31.3 MCHC 30.6 L RDW Std Deviation 74.3 H Plt Count 131 L Neut % (Auto) 77 Lymph % (Auto) 9 L [place] % (Auto) 9 Eos % (Auto) 5 Baso % (Auto) 0 Neut # (Auto) 6.6 Lymph # (Auto) 0.8 L [place] # (Auto) 0.8 Eos # (Auto) 0.4 Baso # (Auto) 0.0 Immature Gran # (Auto) 0.03 H Absolute Nucleated RBC 0.00 Immature Gran % 0 Nucleated RBC % 0 Sodium 131 L Potassium 5.2 H D Chloride 90 L Carbon Dioxide 27.1 Anion Gap 14 BUN 75 H Creatinine 6.5 H* D Estim Creat Clear Calc 7.2 L eGFR 7 L* BUN/Creatinine Ratio 12 Glucose 87 Calculated Osmolality 283 Calcium 8.6 Corrected Calcium 8.9 Total Bilirubin 0.2 L AST 24 ALT 18 Alkaline Phosphatase 90 Total Protein 6.5 Albumin 3.6 Globulin 2.9 Albumin/Globulin Ratio 1.2 Assessment & Plan Assessment and plan (1) Acute ischemic stroke: Status: Acute (2) ESRD (end stage renal disease) on dialysis: Status: Chronic (3) Hypertension: Status: Chronic Additional Assessment & Plan Additional Plan: (1) Acute ischemic stroke: Status: Acute Assessment and plan: Manifesting as right hemiparesis with facial droop and dysarthria, from pontine infarct confirmed with MRI brain Continue with the Plavix and aspirin with statin (low HDL) Continue gabapentin 300 mg twice a day to help with the pain Baclofen 10 mg 3 times a day to help spasms from spasticity Patient is transferred to [facility] (2) ESRD (end stage renal disease) on dialysis: Status: Chronic Assessment and plan: Continue with the maintenance hemodialysis (3) Hypertension: continue with the blood pressure control but hold the beta-lillie
== END 2024-07-25 18:59 | disposition skilled nursing facility (03) | DRG 40 ==
LOC: SERX 08:40 → SERHOLD 11:10 → S2NX 15:45
PROVIDERS: Internal Medicine Cardiovascular Disease; Internal Medicine Nephrology; Student in an Organized Health Care Education/Training Program; Admitting Provider Internal Medicine; Emergency Provider Emergency Medicine; PCP Family Medicine; Visit Provider Student in an Organized Health Care Education/Training Program
PROC: 02H63JZ Insertion of Pacemaker Lead into Right Atrium, Percutaneous Approach (ICD-10-PCS; principal; 2024-07-24 14:00)
DX: I63.011 Cerebral infarction due to thrombosis of right vertebral artery (principal); N18.6 End stage renal disease; G81.91 Hemiplegia, unspecified affecting right dominant side; I44.2 Atrioventricular block, complete; I13.2 Hypertensive heart and chronic kidney disease with heart failure and with stage 5 chronic kidney disease, or end stage renal disease; I49.2 Junctional premature depolarization; I50.30 Unspecified diastolic (congestive) heart failure; R13.10 Dysphagia, unspecified; R29.810 Facial weakness; M79.601 Pain in right arm; I05.0 Rheumatic mitral stenosis; R47.1 Dysarthria and anarthria; H53.8 Other visual disturbances; I27.21 Secondary pulmonary arterial hypertension; E83.39 Other disorders of phosphorus metabolism; E11.22 Type 2 diabetes mellitus with diabetic chronic kidney disease; M25.551 Pain in right hip; R29.709 NIHSS score 9; R00.1 Bradycardia, unspecified; H02.402 Unspecified ptosis of left eyelid; D63.1 Anemia in chronic kidney disease; Z99.2 Dependence on renal dialysis; E11.40 Type 2 diabetes mellitus with diabetic neuropathy, unspecified; Z79.4 Long term (current) use of insulin; Z89.512 Acquired absence of left leg below knee; Z89.511 Acquired absence of right leg below knee; Z79.899 Other long term (current) drug therapy; Z79.82 Long term (current) use of aspirin; Z99.3 Dependence on wheelchair; Z74.01 Bed confinement status
CPT/HCPCS: 36415; 70450; 70496; 70498; 70544; 71045; 76000; 80053; 80061; 80074; 83036; 83605; 83735; 83880; 84100; 84436; 84443; 84484; 85025; 85610; 85730; 86706; 92523; 92526; 92610; 93306; 99285; A4649; J0360; J0689; J0690; J1643; J2250; J3010; J3475; J3490; P9047; Q9967; A9270

== ENCOUNTER 2024-10-31 01:47 | Emergency (ER) | payer MEDICAID, SELFPAY ==
[2024-10-31 02:04] VITALS: BMI 34.4
--- NOTE | 2024-10-31 02:15 | PD.EDCPR ---
ED CPR RME/HPI General Chief Complaint: Cardiac Arrest/CPR Stated Complaint: ANNIE MURPHY Arrival date/time: 10/31/24 01:47 RME / HPI RME / HPI narrative: This section includes all my notes and documentations, including HPI, PE, and ED course. Aureliano Lujan MD HPI: 64 y/o female presents to ED [facility] from [facility] c/o code blue s/p being found by SNF staff unresponsive x 1 hour ago. [facility] was approximately 2 hours ago, 1 hour prior to EMS call at 01:28. Patient arrived to ED at 01:46. Blood sugar recorded at 236 mg/dL. 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 Last Epinephrine was administered at 01:44. ROS: Can't obtain from the patient due to current clinical condition. Physical Exam: General: Patient is completely unresponsive. Eyes: Pupils fixed and dilated. ENT: No signs of trauma. Lungs: No spontaneous respiration. Heart: No cardiac cavity. Skin: Cool with pallor. Neuro: GCS 3. I reviewed EMS and senior care notes. ACLS protocol followed, including 2-minute chest compressions cycles. Patient successfully intubated, see procedure note. At 02:12 on 10/23/2024, our resuscitation effort aborted. With continued unresponsiveness and no spontaneous respiration and no cardiac activity. Rest in peace. Aureliano Lujan MD Related Data Home Medications ?Medication ?Instructions ?Recorded ?Confirmed aspirin 81 mg chewable tablet 81 mg PO HS ##0 11/30/16 04/14/23 gabapentin 300 mg capsule 100 mg PO TID #0 caps 11/30/16 04/14/23 furosemide 40 mg tablet (Lasix) 80 mg PO MWF #0 tabs 12/02/16 04/14/23 amlodipine 10 mg tablet 10 mg PO DAILY 04/14/23 04/14/23 cholecalciferol (vitamin D3) 100 1,000 mcg PO DAILY 04/14/23 04/14/23 mcg (4,000 unit) capsule loratadine 10 mg tablet 10 mg PO DAILY 04/14/23 04/14/23 sevelamer carbonate 800 mg tablet 800 mg PO TIDWM 04/14/23 04/14/23 vitamin B complex 1 tab PO QDAY 04/14/23 04/14/23 Previous Rx's ?Medication ?Instructions ?Recorded hydrocodone 5 mg-acetaminophen 325 1 tab PO Q8H PRN pain #10 tabs 07/25/24 mg tablet sevelamer carbonate 0.8 gram oral 0.8 g PO TIDWM #90 ea 07/25/24 powder packet (Renvela) Allergies Allergy/AdvReac Type Severity Reaction Status Date / Time No Known Allergies Allergy Unverified 07/24/24 16:12 Review of Systems Review of Systems ROS Unobtainable: unobtainable due to mental status Past Medical History Past Medical History CARDIAC: Positive Cardiac Disorders, Hypertension and Hypotension GENITOURINARY: Positive Genitourinary Disorders, Renal Disease and Dialysis ENDOCRINE: Positive Endocrine Disorders and Diabetes Mellitus Type 2 OTHER HISTORY: Positive Blood Transfusions Surgical History SURGICAL: Positive Amputation (Bilateral BKA) ED Exam Narrative Physical exam: Refer to HPI above. Course Quality Measures none Orders Category Date Time Status Intubation NOW Care 10/31/24 02:14 Completed EPINEPHrine in NS 4 MG IVPB [Adrenalin/NS 4 MG IVPB] Med 10/31/24 01:59 Discontinued 4 mg in 250 ml IV .STK-MED EPINEPHrine in NS 4 MG IVPB [Adrenalin/NS 4 MG IVPB] Med 10/31/24 02:04 Active 4 mg in 250 ml IV 0.05 mcg/kg/min Procedures -ED Intubation Time out performed: No sedative: none Mg Given: 0 Mg Given: 0 Laryngoscope: fiber optic video scope Assist Device Used: fiber optic device ET Tube Size: 7.5 ET Tube Uncuffed: No Tube Secured Depth (cm): 22 Tube Secured Location: teeth Tube Placement Confirmation: visualized tube passing through cords and no breath sounds over epigastrium Patient Tolerated Procedure: other Intubation Complications: none Cardiac Arrest / CPR MDM Narrative MDM Narrative:: Scribe Attestation: Jacquelin Bender am scribing for and in the presence of Dr. Lujan. Provider Notation: Although this document has been carefully reviewed, there may still be some phonetic and other typographical errors.? These errors are purely grammatical due to imperfections in the software program and should not be construed in any way to? compromise the substance of the patient's medical care during this visit. Patient data External records reviewed:: [facility] previous records, EMS form and [facility] records Clinical information provided by:: EMS Social determinants that could affect healthcare access:: housing (SNF) Patient has the following chronic illnesses:: Hypertension, Hypotension, Renal Disease, Dialysis, Diabetes Mellitus Type 2, Amputation How is presenting disease/condition affected by chronic disease/condition?: exacerbated by Evaluation data The following diagnostics were reviewed and interpreted by me:: other (specify) (N/A) Lab and/or radiology exams considered but not ordered:: None Interpretation Summary: N/A Medications / Prescriptions Medications or Prescriptions considered but not ordered:: None Medication administrations:: Medication Administration History Epinephrine/Sodium Chloride (Adrenalin/Ns 4 Mg Ivpb) 4 mg in 250 mls @ 15 mls/hr IV .[id number] PRN; Protocol PRN Reason: per protocol Stop: 11/30/24 02:03 Discontinued Medications Epinephrine/Sodium Chloride (Adrenalin/Ns 4 Mg Ivpb) Confirm Administered Dose 4 mg in 250 mls @ ud IV .[facility] Stop: 10/31/24 02:00 Last Admin: 10/31/24 02:08 Dose: Not Given Documented By: DT Non-Admin Reason: Override Medication Seek our code record. Consultations Consultation(s) initiated? (list below): No Diagnosis Cardiac arrest differential diagnosis: acute massive pulmonary embolism, acute respiratory failure, acute myocardial infarction, cardiac arrest and sudden cardiac Most likely diagnosis given after review of the tests above:: Cardiac arrest of unclear etiology. Admission Indicated Admission indicated?: not indicated Explain why admission is indicated or not indicated:: Patient . Admission Request Was there a request for admission?: No Disposition Plan Disposition Plan: other (specify) (Patient .) Discharge Plan Plan Patient Disposition: Prescriptions/Referrals Referrals: Joshua Hess MD [Primary Care Provider] - In 1 week Problem List Clinical Impression: Cardiac arrest Patient/Caregiver Discharge Instructions Print Language: Chinese
--- NOTE | 2024-10-31 02:16 | PC.RT ---
assisted with intubation, post intubation endtidal co2 monitor color changed 22 at [address] gum per Dr. simons bilateral equal bs auscultated 7.5 ett.
--- NOTE | 2024-10-31 02:29 | PC.NURSE ---
SEE CODE BLUE FORM FOR MEDICATIONS. TOD 0212.
== END 2024-10-31 05:07 | disposition expired ==
PROVIDERS: Emergency Provider Emergency Medicine; PCP Hospitalist
DX: I46.9 Cardiac arrest, cause unspecified (principal); I10 Essential (primary) hypertension
CPT/HCPCS: 31500; 92950; 99285; J0171